=== PATIENT | female | born 1945 | race Caucasian/White ===

== ENCOUNTER 2018-01-19 10:00 | Outpatient (RCR) | payer MEDICARE, SELFPAY ==
--- NOTE | 2018-01-12 09:30 | IE_ITS ---
Date: January 12, 2018 Referring: Karen Bernardo DO M.D. Diagnosis: UE weakness P.T. Diagnosis: same SUBJECTIVE: History of Present Illness: Jennifer complains of general weakness throughout the UE's when performing more strenuous type activities. NO pain associated with these. A 73 year old female seen by myself earlier this year with LE weakness and balance deficits. She had a few sessions and has been placed on an independent program where she comes into the clinic a couple times a week working on LE, core strengthening and balancing activities. She notices a significant difference in her gait stability, balance including climbing stairs, etc. . . . She also notes some progressive weakness over the years with her UE's. Pain Ratin/10 Prior Level of Function: Independent Current Level of Function: Has some difficulty with more strenuous activities requiring her UE use such pulling pans of lasagna out of the oven, lifting heavier items out of the frig, etc. . . Social: , retired. Comorbidities: See patient's EMR for list. Falls in the last year: __X__ No ____Yes - How many? ____ - (if over 2, balance SM needs to be completed) Reported hospitalizations in the last year - __X__ No ____ Yes - Dates of admission/reason: Medications: See her Med list in EMR Quality of Life: ____ Excellent __x__ Good ____ Fair ____ Poor Standardized Measures: DASH score: __Did not complete OBJECTIVE: Posture: Shoulders and pelvis are level. (-) lateral shift. Observation: (behavior, atrophy, skin color, etc.) Is hard of hearing, but cooperative and pleasant, no complaints of pain. Palpation: Non-tender throughout the cervical musculature, the AC/SC joints, subacromially or over greater tuberosity. Edema: (-) effusion, erythema or warmth. ROM: She has mild limitation within an articular pattern, with cervical spine movements, but without pain on movement. Bilateral shoulder motion reveals good initiation of flexion/abduction without scapular substitution. Her thumbs are equal with reaching behind her back and around the T9 level. Her AAROM in supine position shows full ROM with ER at 90 degrees. She is a little tight with her IR on the L at 60 degrees, but she has (-) Hawkin's Reynold impingement maneuver. Her elbow movements are hypomobile at -10 degrees of extension, but full flexion , without pain on movement. Forearm supination/pronation is full. Her wrist flexion/extension is WFL at greater than 60 degrees. She has some hypomobility at the CMC joints of the thumb, but without pain and she has Heberden's notes along the distal phalanges, particularly the index fingers. Strength: She tolerates good resistance to the rotator cuff, and she has full motor control throughout the upper extremities. Strength is generally rated -5/ 5. Neuro: UE reflexes are symmetrical. Sensation is intact to light touch. Treatment: Today consisted of the evaluation. IE: [id number] Direct treatment time: 50 mins Total treatment time: 50 mins ASSESSMENT: Patient is a 73-year-old female , referred for PT services with the diagnosis of UE weakness. Patient presents with clinical signs and symptoms consistent with this diagnosis, as demonstrated by the following impairment level findings : difficulty lifting or carrying heavy objects. Impairments are contributing to the following functional limitations: of difficulty lifting heavy pans out of the oven, or putting heavier items in cupboards above shoulder level. Patient is assessed as: __X__ Low 28135 ____ Moderate 12878 ____ High 48770 complexity, based on the following: History: (list): X See comorbidities and social history. Examination: (list): X See above for functional limitations and impairments. Presentation: X Stable . Evolving Unstable Decision-Making: X Low complexity Moderate complexity High complexity % Disability based on clinical observation G-Codes (fill in modifier after appropriate code): Patient's primary functional limitation is in the category of: __x__ Carrying, moving and handling objects: [id number] Projected goal: __x__ Carrying, moving, and handling objects [id number] STG: __6__ weeks. 1: Develop an independent program with added UE strengthening to handle all functional activities including lifting heavier items, such as her cooking pans , etc. . . LTG: __12__ weeks. 1: Return to full, pain-free, functional mobility. 2: Independent with self-maintenance program. PLAN: Session today consisted of the evaluation, along with patient education followed by setting her up an appt with Lou Darling PTA next week to educate her in a minimally supervised program for UE strengthening exercises here at the clinic, this will be incorporated into a total body program. Thank you for this referral. Please do not hesitate to contact me with any questions or concerns regarding this patient's plan of care. *Karen, please sign this evaluation if you are in agreement with the above stated goals and plan of care. cc: Karen Bernardo DO
--- NOTE | 2018-01-16 13:38 | PTTR_ITS ---
DATE: 01/16/18 OBJECTIVE: Therapeutic procedures ([id number]). Todays session consisted of pt completing an UE strengthening program as per her request. She had been currently completing an MSP program but wanted to add some upper body strengthening so I included UE strengthening, scap stabilization per flow sheet and added the UBE for UE cardiovascular exercise. Pt completed approximately 15 minutes of that with me and then completed her (I) program with the wellness. Direct treatment time: 20 minutes Total treatment time: 20 minutes
--- NOTE | 2018-01-19 10:23 | PTTR_ITS ---
DATE: 01/19/18 SUBJECTIVE: Pt reports that her neck is sore today. She states that she was somewhat sore after last session. OBJECTIVE: Therapeutic procedures ([id number]). * X Other: Pt had a review of her UE strengthening so she could feel comfortable completing it on her own. I did add 2 exercises to her UE strengthening program. Pt will now incorporate her UE strengthening into her current MSP program. Direct treatment time: 20 Total treatment time: 20
== END 2018-01-20 23:59 | disposition home or self-care (01) ==
LOC: PT 10:00
PROVIDERS: PCP Student in an Organized Health Care Education/Training Program; Referring Provider Student in an Organized Health Care Education/Training Program; Visit Provider Student in an Organized Health Care Education/Training Program
DX: M62.81 Muscle weakness (generalized) (principal)
CPT/HCPCS: 97110; 97161

== ENCOUNTER 2018-01-25 07:11 | Outpatient (CLI) | payer MEDICARE, SELFPAY ==
[2018-01-25 07:42] LABS: HCT 43.6 % (36.0-46.0); HGB 14.4 g/dL (12.0-15.5); Mean Corpuscular Volume 93.8 fL (80-95); Mean Platelet Volume 10.7 fL (8.0-11.0); Platelet Count 182 x1000/uL (130-400); RBC 4.65 m/cumm (4.00-5.20); RBC Distribution Width 14.1 % (11.7-14.6); White Blood Cell Count 6.66 k/cumm (4.4-10.8)
[2018-01-25 08:38] LABS: ALT 24 U/L (12-78); AST 22 U/L (15-37); Albumin 3.8 g/dL (3.4-5.0); Alkaline Phosphatase 55 U/L (46-116); BUN 11 mg/dL (7-18); Bilirubin, Total 0.5 mg/dL (0.2-1.0); Calcium 8.8 mg/dL (8.5-10.1); Chloride 106 mmol/L (98-107); Cholesterol 129 mg/dL (50-200); Glucose 86 mg/dL (70-100); HDL Cholesterol 61 mg/dL (40-60); LDL CHOLESTEROL 61 mg/dL (<100); Potassium 3.9 mmol/L (3.5-5.1); Sodium 141 mmol/L (136-145); TSH (W/Ref FT4) 2.23 uIU/mL (0.358-3.74); Total Protein 7.4 g/dL (6.4-8.2); Triglyceride 62 mg/dL (30-150)
[2018-01-26 04:33] LABS: Vitamin D 25 Total 48.8 ng/ml (30-100)
== END 2018-01-25 07:31 ==
PROVIDERS: PCP Student in an Organized Health Care Education/Training Program; Visit Provider Student in an Organized Health Care Education/Training Program
DX: E78.00 Pure hypercholesterolemia, unspecified (principal); K21.9 Gastro-esophageal reflux disease without esophagitis; K22.70 Barrett's esophagus without dysplasia; R01.1 Cardiac murmur, unspecified; I10 Essential (primary) hypertension; E55.9 Vitamin D deficiency, unspecified; Z86.39 Personal history of other endocrine, nutritional and metabolic disease; E83.42 Hypomagnesemia; M85.80 Other specified disorders of bone density and structure, unspecified site; E03.9 Hypothyroidism, unspecified
CPT/HCPCS: 80053; 80061; 82306; 83721; 85027; 84443

== ENCOUNTER 2018-09-13 11:42 | Outpatient (REF) | payer MEDICARE, SELFPAY | END 2018-09-13 12:02 | LOC: LBN 11:42 | PROVIDERS: PCP Student in an Organized Health Care Education/Training Program; Visit Provider Student in an Organized Health Care Education/Training Program | DX: R35.0 Frequency of micturition (principal) | CPT/HCPCS: 87086 ==

== ENCOUNTER 2018-09-15 07:13 | Outpatient (CLI) | payer MEDICARE, SELFPAY ==
[2018-09-15 08:53] LABS: Anion Gap 11.7 mmol/L (3-11); BUN 14 mg/dL (7-18); CO2 23.3 mmol/L (21.0-32.0); CREATININE 0.83 mg/dL (0.55-1.02); Calcium 9.1 mg/dL (8.5-10.1); Chloride 105 mmol/L (98-107); Cholesterol 220 mg/dL (50-200); Glucose 94 mg/dL (70-100); HDL Cholesterol 65 mg/dL (40-60); LDL CHOLESTEROL 141 mg/dL (<100); Potassium 4.2 mmol/L (3.5-5.1); Sodium 140 mmol/L (136-145); Triglyceride 80 mg/dL (30-150)
== END 2018-09-15 07:33 ==
PROVIDERS: PCP Student in an Organized Health Care Education/Training Program; Visit Provider Student in an Organized Health Care Education/Training Program
DX: R79.89 Other specified abnormal findings of blood chemistry (principal); E78.00 Pure hypercholesterolemia, unspecified; Z79.899 Other long term (current) drug therapy
CPT/HCPCS: 36415; 80048; 80061; 83721

== ENCOUNTER 2018-09-20 09:10 | Outpatient (CLI) | payer MEDICARE, SELFPAY ==
--- NOTE | 2018-09-20 11:00 | DI.RAD_ITS ---
SYMPTOMS/DIAGNOSIS: OSTEOPOROSIS, ACUTE RT SIDED BACK PAIN LUMBAR SPINE: AP, lateral and bilateral oblique views of the lumbar spine were obtained. There are five lumbar type vertebral bodies. There is grade 1 pseudospondylolisthesis of L 4 on L 5. There is disc space narrowing at L 1 - 2 and L 5 - S 1. Vacuum disc is seen at L 5 - S 1. There are endplate osteophytes at multiple levels of the lumbar spine. The findings are most marked at L 1 - 2, L 4 - 5 and L 5 - S 1. There are degenerative changes of the facets seen in the lumbar spine particularly at L 3 - 4 through L 5 - S 1. No acute fractures or subluxations are appreciated. There is a mild left convex curvature of the lumbar spine centered at L 3. IMPRESSION: 1. No acute fracture or subluxation of the lumbar spine. 2. Mild to moderate degenerative changes of the lumbar spine.
== END 2018-09-20 09:30 ==
PROVIDERS: PCP Student in an Organized Health Care Education/Training Program; Visit Provider Family Medicine
DX: M54.5 Low back pain (principal); M51.37 Other intervertebral disc degeneration, lumbosacral region; M47.817 Spondylosis without myelopathy or radiculopathy, lumbosacral region
CPT/HCPCS: 72110

== ENCOUNTER 2018-09-30 09:12 | Emergency (ER) | payer MEDICARE, SELFPAY ==
[2018-09-30 09:16] VITALS: BP 146/56; PULSE 60; RESP 13; TEMP 37.1; O2SAT 98
[2018-09-30 09:20] VITALS: RESP 20
--- NOTE | 2018-09-30 09:35 | W.ED.GENAD ---
Discharge Plan Disposition Patient Disposition: HOME Condition: Improving Discharge Details Chief Complaint: Dizzy/Sync Clinical Impression: Near syncope Primary Care Provider: Karen Bernardo ED Provider: Lefty Pires Home Meds and New Rx's Prescriptions: No Action omeprazole 40 mg capsule,delayed release(DR/EC) 40 mg PO DAILY Qty: 90 RF: 2 ibuprofen [Advil] 200 mg tablet 400 mg PO QID PRNRF: 0 Probiotic 1 EACH capsule 1 ea PO PRN RF: 0 Varicella-Zoster Ge/As01b/Pf [Shingrix Vial Kit] 50 MCG INJ 50 mcg IM ONCE Qty: 1 RF: 1 amlodipine 5 MG tablet 5 mg PO DAILY Qty: 90 RF: 3 levothyroxine 50 MCG tablet 50 mcg PO DAILY Qty: 90 RF: 3 cholecalciferol (vitamin D3) 1,000 UNIT capsule 1,000 unit PO DAILY RF: 0 Discharge Instructions Instructions: Near Syncope (ED) Additional Instructions: Please follow-up with your private doctor on Tuesday of this week please return immediately to the emergency department for loss of consciousness shortness of breath chest pain or other concern please follow-up with orthopedic surgery for further evaluation of your hip pain Referrals: Karen Bernardo DO [Primary Care Provider] - Kennedy Peterson MD [ [facility] STAFF PHYSICIAN] - Medical Decision Making 73-year-old female past medical history of hypothyroidism and hypertension presents with 3 near syncopal episodes a.m. today patient asymptomatic in the emergency department will obtain labs EKG chest x-ray and observe on telemetry in the emergency depart. Patient with more chronic neck pain without radiculopathy no sensory deficits does not seem to have any acute emergent neck process no evidence of arterial venous insufficiency. Right hip pain full range of motion with discomfort and swelling no change in sensation no right limb weakness or affect atrophy will repeat plain films provide analgesia likely follow-up with orthopedics and physical therapy.. Patient resting comfortably no further near syncopal episodes EKG chest x-ray and labs reviewed unremarkable patient normal neurologic exam ambulating in the emergency department tolerating p.o. discussed with patient observation admission on telemetry versus discharge in early follow-up patient opted for the latter choice which I think is very reasonable based on her benign appearance normal lab work. Patient agrees to return immediately for repeat episodes of near syncope chest pain shortness of breath or any other concern we will follow-up with her primary care earlier this week. ECG Data Attestation: I personally reviewed and interpreted this ECG (s) as follows: Prior ECG tracings: available for review (Sinus rhythm rate 63 with occasional PVCs normal axis normal intervals no STEMI) HPI 73-year-old female past medical history of hypertension and hypothyroidism presents with 3 near syncopal episodes and today no fall no trauma patient said she is felt lightheaded her vision darkened had to sit down episodes lasted to be 30 to 60 seconds and then cleared. Patient also complaining of chronic neck pain last 3 to 4 months and more recently right hip pain had negative x-rays about 2 weeks ago is been taking ibuprofen with some relief for both pain. No shortness of breath no chest pain no nausea vomiting diarrhea loss of consciousness focal neurologic deficit weight loss or weight gain. Patient drinks one alcohol drink a night no tobacco use no illicit drugs. General Date/Time Provider Initiated Documentation: 09/30/18 09:34. Related Data Home Medications Medication Instructions Recorded Confirmed cholecalciferol (vitamin D3) 1,000 unit PO DAILY 02/13/13 09/30/18 Probiotic 1 ea PO PRN 12/15/15 09/30/18 amlodipine 5 mg PO DAILY #90 tab-cap 01/20/18 09/30/18 levothyroxine 50 mcg PO DAILY #90 tab-cap 01/20/18 09/30/18 omeprazole 40 mg capsule,delayed 40 mg PO DAILY #90 cap 02/23/18 09/30/18 release ibuprofen 200 mg tablet 400 mg PO QID PRN tab 09/19/18 09/30/18 Previous Rx's Medication Instructions Recorded amlodipine 5 mg PO DAILY #90 tab-cap 01/20/18 levothyroxine 50 mcg PO DAILY #90 tab-cap 01/20/18 omeprazole 40 mg capsule,delayed 40 mg PO DAILY #90 cap 02/23/18 release Allergies Allergy/AdvReac Type Severity Reaction Status Date / Time Penicillins Allergy Intermediate Skin Rash, Verified 09/30/18 09:20 V&D horse fly bites AdvReac Mild arms Uncoded 09/30/18 09:20 swelled seasonal AdvReac Mild Uncoded 09/30/18 09:20 General Stated Complaint: Dizzy/Sync NEETA: 3 Review of Systems Review of Systems All systems reviewed & are unremarkable except as noted in HPI and below PFSH Medical History GERD (gastroesophageal reflux disease) HTN (hypertension) Hypothyroidism Uses cochlear implant Surgical History Cochlear Implant (R)Side Colonoscopy - MAC (09/12/17) Hiatal Hernia Family History Mother No problems noted. Father COPD (chronic obstructive pulmonary disease) Sister Essential hypertension Stroke Maternal Grandmother Essential hypertension Stroke Son Alcohol abuse Social History Smoking/Tobacco Use Status: Former Tobacco Use Alcohol Intake: current Alcohol Intake frequency: a few times a week Drug use: Never Substance use type: does not use Adopted: No Caregiver/Support person: No Household members: spouse Housing: house Number of Children: 2 number of grandchildren: 1 Pets and animals: Yes Pets and animals: cat(s) Do you think of yourself as: straight/heterosexual Current gender identity: female What type of physical activity do you participate in: none Seatbelt use: always Helmet use: Yes Water heater temp set <120 deg: Yes Working smoke detector in home: Yes Fire extinguisher in home: Yes Carbon monox detector in home: Yes Firearms in home: Yes Firearms unloaded and locked: Yes In current or past relationships, have you been: made to feel afraid Do you feel safe at home: Yes Do you feel safe in your relationship?: Yes Exam Narrative Exam Narrative: Pulse oximetry reviewed by me and is normal [] Constitutional: Pt is in no acute distress. he is well appearing. he oriented to person, place, and time. Eyes: conjunctivae are normal. Pupils are equal, round, and reactive to light. No scleral icterus. extraocular muscles are intact Ears/Nose/Mouth/Throat: mucus membranes are moist. Musculoskeletal: neck is supple. normal range of motion in all extremities. Cardiovascular: Normal rate and rhythm. No lower extremity edema [regular rate and] Respiratory: effort is normal . pt exhibits no stridor or respiratory distress. [Lungs clear to auscultation by] GastrointestinaI: abdomen soft, +BS, nontender, -rebound, -guarding. Neurological: alert and oriented to person, place, and time. he has normal strength, no tremor. Skin: Skin is warm and dry. he is not diaphoretic. Distal perfusion in tact, warm extremities, cap refill ? 2 seconds. Hem/Lymph/Imm: No cervical LAD, no goiter, no conjunctival pallor Psych: normal mood and affect. behavior is normal Triage and nurse notes reviewed.[] Neuro General: alert, awake, oriented x3, gait normal, moves all extremities, normal light touch, pain and propioception, no meningeal signs, no focal motor deficits and CN's II-XI intact bilaterally Gait: antalgic (Patient mild limp on the right side due to hip pain improves with amp) Motor: muscle tone normal throughout, strength 5/5 throughout, no pronator drift, no movement abnormalities noted and no fasciculations Sensory Exam: no sensory deficits noted Coordination: [id number] test normal, [id number] test normal, Romberg test normal, Does not sway with eyes open and rapid alternating movement UE normal Course Vital Signs Temperature 37.1 C 09/30/18 09:16 Pulse 60 09/30/18 09:16 Respiratory Rate 13 09/30/18 09:16 Blood Pressure 146/56 H 09/30/18 09:16 Pulse Oximetry 98 09/30/18 09:16 Temperature 37.1 C 09/30/18 09:16 Temperature Source Temporal Artery Scan 09/30/18 09:16 Pulse 60 09/30/18 09:16 Respiratory Rate 20 09/30/18 09:20 Respiratory Effort Non-Labored 09/30/18 09:20 Respiratory Depth Normal 09/30/18 09:20 Respiratory Pattern Normal 09/30/18 09:20 Blood Pressure 146/56 H 09/30/18 09:16 Pulse Oximetry 98 09/30/18 09:16 Oxygen Delivery Method Room Air 09/30/18 09:16 Oxygen Flow Rate 0 09/30/18 09:16 Pain Level 10 09/30/18 09:16
--- NOTE | 2018-09-30 09:40 | DI.RAD_ITS ---
SYMPTOMS/DIAGNOSIS: NEAR SYNCOPE PA AND LATERAL CHEST: Comparison is made with [id number]. The heart size is within normal limits. The aorta is tortuous. The lungs show mild fibrotic changes but are otherwise clear. No infiltrate, effusion or pulmonary edema is seen. There are degenerative changes in the spine. No compression fractures are seen. No pneumothorax is identified. IMPRESSION: No acute abnormality.
--- NOTE | 2018-09-30 09:40 | ED.GENADUL_ITS ---
Discharge Plan Disposition Patient Disposition: HOME Condition: Improving Discharge Details Chief Complaint: Dizzy/Sync Clinical Impression: Near syncope Primary Care Provider: Karen Bernardo ED Provider: Lefty Pires Home Meds and New Rx's Prescriptions: No Action omeprazole 40 mg capsule,delayed release(DR/EC) 40 mg PO DAILY Qty: 90 RF: 2 ibuprofen [Advil] 200 mg tablet 400 mg PO QID PRNRF: 0 Probiotic 1 EACH capsule 1 ea PO PRN RF: 0 Varicella-Zoster Ge/As01b/Pf [Shingrix Vial Kit] 50 MCG INJ 50 mcg IM ONCE Qty: 1 RF: 1 amlodipine 5 MG tablet 5 mg PO DAILY Qty: 90 RF: 3 levothyroxine 50 MCG tablet 50 mcg PO DAILY Qty: 90 RF: 3 cholecalciferol (vitamin D3) 1,000 UNIT capsule 1,000 unit PO DAILY RF: 0 Discharge Instructions Instructions: Near Syncope (ED) Additional Instructions: Please follow-up with your private doctor on Tuesday of this week please return immediately to the emergency department for loss of consciousness shortness of breath chest pain or other concern please follow-up with orthopedic surgery for further evaluation of your hip pain Referrals: Karen Bernardo DO [Primary Care Provider] - Kennedy Peterson MD [ [facility] STAFF PHYSICIAN] - Medical Decision Making 73-year-old female past medical history of hypothyroidism and hypertension presents with 3 near syncopal episodes a.m. today patient asymptomatic in the emergency department will obtain labs EKG chest x-ray and observe on telemetry in the emergency depart. Patient with more chronic neck pain without radiculopathy no sensory deficits does not seem to have any acute emergent neck process no evidence of arterial venous insufficiency. Right hip pain full range of motion with discomfort and swelling no change in sensation no right limb weakness or affect atrophy will repeat plain films provide analgesia likely follow-up with orthopedics and physical therapy.. Patient resting comfortably no further near syncopal episodes EKG chest x-ray and labs reviewed unremarkable patient normal neurologic exam ambulating in the emergency department tolerating p.o. discussed with patient observation admission on telemetry versus discharge in early follow-up patient opted for the latter choice which I think is very reasonable based on her benign appearance normal lab work. Patient agrees to return immediately for repeat episodes of near syncope chest pain shortness of breath or any other concern we will follow- up with her primary care earlier this week. ECG Data Attestation: I personally reviewed and interpreted this ECG (s) as follows: Prior ECG tracings: available for review (Sinus rhythm rate 63 with occasional PVCs normal axis normal intervals no STEMI) HPI 73-year-old female past medical history of hypertension and hypothyroidism pre sents with 3 near syncopal episodes and today no fall no trauma patient said she is felt lightheaded her vision darkened had to sit down episodes lasted to be 30 to 60 seconds and then cleared. Patient also complaining of chronic neck pain last 3 to 4 months and more recently right hip pain had negative x-rays about 2 weeks ago is been taking ibuprofen with some relief for both pain. No shortness of breath no chest pain no nausea vomiting diarrhea loss of consciousness focal neurologic deficit weight loss or weight gain. Patient drinks one alcohol drink a night no tobacco use no illicit drugs. General Date/Time Provider Initiated Documentation: 09/30/18 09:34 . Related Data Home Medications Medication Instructions Recorded Confirmed cholecalciferol (vitamin D3) 1,000 unit PO DAILY 02/13/13 09/30/18 Probiotic 1 ea PO PRN 12/15/15 09/30/18 amlodipine 5 mg PO DAILY #90 tab-cap 01/20/18 09/30/18 levothyroxine 50 mcg PO DAILY #90 tab-cap 01/20/18 09/30/18 omeprazole 40 mg capsule,delayed 40 mg PO DAILY #90 cap 02/23/18 09/30/18 release ibuprofen 200 mg tablet 400 mg PO QID PRN tab 09/19/18 09/30/18 Previous Rx's Medication Instructions Recorded amlodipine 5 mg PO DAILY #90 tab-cap 01/20/18 levothyroxine 50 mcg PO DAILY #90 tab-cap 01/20/18 omeprazole 40 mg capsule,delayed 40 mg PO DAILY #90 cap 02/23/18 release Allergies Allergy/AdvReac Type Severity Reaction Status Date / Time Penicillins Allergy Intermediate Skin Rash, Verified 09/30/18 09:20 V&D horse fly bites AdvReac Mild arms Uncoded 09/30/18 09:20 swelled seasonal AdvReac Mild Uncoded 09/30/18 09:20 General Stated Complaint: Dizzy/Sync ENETA: 3 Review of Systems Review of Systems All systems reviewed & are unremarkable except as noted in HPI and below PFSH Medical History GERD (gastroesophageal reflux disease) HTN (hypertension) Hypothyroidism Uses cochlear implant Surgical History Cochlear Implant (R)Side Colonoscopy - MAC (09/12/17) Hiatal Hernia Family History Mother No problems noted. Father COPD (chronic obstructive pulmonary disease) Sister Essential hypertension Stroke Maternal Grandmother Essential hypertension Stroke Son Alcohol abuse Social History Smoking/Tobacco Use Status: Former Tobacco Use Alcohol Intake: current Alcohol Intake frequency: a few times a week Drug use: Never Substance use type: does not use Adopted: No Caregiver/Support person: No Household members: spouse Housing: house Number of Children: 2 number of grandchildren: 1 Pets and animals: Yes Pets and animals: cat(s) Do you think of yourself as: straight/heterosexual Current gender identity: female What type of physical activity do you participate in: none Seatbelt use: always Helmet use: Yes Water heater temp set <120 deg: Yes Working smoke detector in home: Yes Fire extinguisher in home: Yes Carbon monox detector in home: Yes Firearms in home: Yes Firearms unloaded and locked: Yes In current or past relationships, have you been: made to feel afraid Do you feel safe at home: Yes Do you feel safe in your relationship?: Yes Exam Narrative Exam Narrative: Pulse oximetry reviewed by me and is normal [] Constitutional: Pt is in no acute distress. he is well appearing. he oriented to person, place, and time. Eyes: conjunctivae are normal. Pupils are equal, round, and reactive to light. No scleral icterus. extraocular muscles are intact Ears/Nose/Mouth/Throat: mucus membranes are moist. Musculoskeletal: neck is supple. normal range of motion in all extremities. Cardiovascular: Normal rate and rhythm. No lower extremity edema [regular rate and] Respiratory: effort is normal . pt exhibits no stridor or respiratory distress. [Lungs clear to auscultation by] GastrointestinaI: abdomen soft, +BS, nontender, -rebound, -guarding. Neurological: alert and oriented to person, place, and time. he has normal strength, no tremor. Skin: Skin is warm and dry. he is not diaphoretic. Distal perfusion in tact, warm extremities, cap refill ? 2 seconds. Hem/Lymph/Imm: No cervical LAD, no goiter, no conjunctival pallor Psych: normal mood and affect. behavior is normal Triage and nurse notes reviewed.[] Neuro General: alert, awake, oriented x3, gait normal, moves all extremities, normal light touch, pain and propioception, no meningeal signs, no focal motor deficits and CN's II-XI intact bilaterally Gait: antalgic (Patient mild limp on the right side due to hip pain improves with amp) Motor: muscle tone normal throughout, strength 5/5 throughout, no pronator drift, no movement abnormalities noted and no fasciculations Sensory Exam: no sensory deficits noted Coordination: [id number] test normal, [id number] test normal, Romberg test normal, Does not sway with eyes open and rapid alternating movement UE normal Course Vital Signs Temperature 37.1 C 09/30/18 09:16 Pulse 60 09/30/18 09:16 Respiratory Rate 13 09/30/18 09:16 Blood Pressure 146/56 H 09/30/18 09:16 Pulse Oximetry 98 09/30/18 09:16 Temperature 37.1 C 09/30/18 09:16 Temperature Source Temporal Artery Scan 09/30/18 09:16 Pulse 60 09/30/18 09:16 Respiratory Rate 20 09/30/18 09:20 Respiratory Effort Non-Labored 09/30/18 09:20 Respiratory Depth Normal 09/30/18 09:20 Respiratory Pattern Normal 09/30/18 09:20 Blood Pressure 146/56 H 09/30/18 09:16 Pulse Oximetry 98 09/30/18 09:16 Oxygen Delivery Method Room Air 09/30/18 09:16 Oxygen Flow Rate 0 09/30/18 09:16 Pain Level 10 09/30/18 09:16
[2018-09-30 09:52] LABS: Abs Immature Grans 0.02 k/cumm (0.0-0.09); Absolute Basophil Count 0.05 k/cumm (0.0-0.2); Absolute Eosinophil Count 0.27 k/cumm (0.0-0.7); Absolute Lymphocyte Count 3.44 k/cumm (1.2-3.4); Absolute Monocyte Count 0.63 k/cumm (0.11-0.7); Basophils % 0.6; Eosinophils % 3.4; HGB 14.8 g/dL (12.0-15.5); Immature Grans % 0.3; Lymphocytes % 43.5; Mean Corp. HGB Concentration 33.6 g/dL (32.0-36.0); Mean Corpuscular Hemoglobin 31.7 pg (27.0-33.0); Mean Corpuscular Volume 94.2 fL (80-95); Mean Platelet Volume 10.2 fL (8.0-11.0); Neutrophils % 44.2; Platelet Count 214 x1000/uL (130-400); RBC 4.67 m/cumm (4.00-5.20); RBC Distribution Width 13.6 % (11.7-14.6); White Blood Cell Count 7.91 k/cumm (4.4-10.8)
[2018-09-30 09:59] LABS: Bilirubin Negative (Negative); Blood Trace-lysed (Negative); Clarity Clear; Glucose Negative (Negative); Ketones Negative (Negative); Leukocyte Esterase Negative (Negative); Nitrite Negative (Negative); Urobilinogen 0.2 EU/dL (Up TO 0.2); pH 5.5 (5-8)
[2018-09-30 10:10] LABS: ALT 25 U/L (12-78); AST 21 U/L (15-37); Albumin 3.9 g/dL (3.4-5.0); Alkaline Phosphatase 59 U/L (46-116); Anion Gap 10.1 mmol/L (3-11); BUN 15 mg/dL (7-18); Bilirubin, Total 0.4 mg/dL (0.2-1.0); CO2 25.9 mmol/L (21.0-32.0); CREATININE 0.71 mg/dL (0.55-1.02); Calcium 9.5 mg/dL (8.5-10.1); Chloride 103 mmol/L (98-107); Glucose 102 mg/dL (70-100); Magnesium 1.8 mg/dL (1.8-2.4); Potassium 3.9 mmol/L (3.5-5.1); Sodium 139 mmol/L (136-145); TSH 2.74 uIU/mL (0.358-3.74); Total Protein 8.2 g/dL (6.4-8.2)
[2018-09-30] MEDS: Lactated Ringers 1,000 ML 1000 ML IV (10:11)
[2018-09-30 10:13] LABS: Troponin I < 0.02 ng/mL (0.00-0.06)
[2018-09-30 10:26] LABS: Bacteria Rare HPF (Negative); C & S Indicated? No; Casts Negative LPF (Negative); Crystals Negative HPF (Negative); Epithelial Cells Moderate HPF (Negative); Mucus Trace (Negative); RBC 0-2 (0-2); WBC Negative HPF (0-5)
[2018-09-30] MEDS: Ibuprofen 600 MG TAB PO (10:51)
[2018-09-30] MEDS: Acetaminophen 325 MG TAB 650 MG PO (10:51)
[2018-09-30] MEDS: Cyclobenzaprine 10 MG TAB PO (10:51)
--- NOTE | 2018-09-30 10:52 | DI.VRAD_ITS ---
EXAM: XR Chest, 2 Views EXAM DATE/TIME: 09/30/2018 9:41 AM CLINICAL HISTORY: 73 years old, female; Signs and symptoms; Other: Near syncope TECHNIQUE: Imaging protocol: XR of the chest, 2 views. COMPARISON: CR CHEST 2 VIEWS PA,LAT 10/18/2017 5:41 PM FINDINGS: Lungs: Unremarkable. No consolidation. Pleural space: Unremarkable. No pleural effusion. No pneumothorax. Heart/Mediastinum: Stable cardiac silhouette Bones/joints: Osseous structures are stable IMPRESSION: No acute process Dictated and Authenticated by: Kaveh Lopes MD. Ordering:SHAHEED Olea MD
[2018-09-30 11:15] VITALS: BP 141/73; PULSE 56; RESP 18; O2SAT 96
== END 2018-09-30 11:17 | disposition home or self-care (01) ==
PROVIDERS: Emergency Provider Emergency Medicine; PCP Student in an Organized Health Care Education/Training Program
DX: R55 Syncope and collapse (principal); M54.2 Cervicalgia; G89.29 Other chronic pain; M25.551 Pain in right hip; I10 Essential (primary) hypertension
CPT/HCPCS: 36415; 80053; 93005; 99285; 71046; 81003; 81015; 83735; 84443; 84484; 85025; 93010; 99284

== ENCOUNTER 2019-10-26 19:17 | Outpatient (REF) | payer MEDICARE, SELFPAY | END 2019-10-26 19:37 | LOC: LBN 19:17 | PROVIDERS: PCP Student in an Organized Health Care Education/Training Program; Visit Provider Nurse Practitioner Adult Health | DX: R31.9 Hematuria, unspecified (principal); N39.0 Urinary tract infection, site not specified | CPT/HCPCS: 87077; 87086; 87186 ==

== ENCOUNTER 2019-11-09 15:40 | Outpatient (REF) | payer MEDICARE, SELFPAY ==
[2019-11-09 18:24] LABS: Bilirubin Negative (Negative); Blood Trace-lysed (Negative); Clarity Sl Cloudy (Clear); Glucose Negative (Negative); Ketones Negative (Negative); Leukocyte Esterase Moderate (Negative); Nitrite Negative (Negative); Specific Gravity 1.015 (1.005-1.025); Urobilinogen 0.2 EU/dL (Up TO 0.2)
[2019-11-09 18:50] LABS: Epithelial Cells Moderate HPF (Negative); RBC 0-2 HPF (0-2); WBC 20-50 HPF (0-5)
[2019-11-09 18:51] LABS: Bacteria Moderate HPF (Negative); C & S Indicated? No/Sq. Contamination; Casts Negative LPF (Negative); Crystals Negative HPF (Negative); Mucus Trace (Negative); Other Cells Few Renal (Negative)
== END 2019-11-09 16:00 ==
LOC: LBN 15:40
PROVIDERS: PCP Student in an Organized Health Care Education/Training Program; Visit Provider Student in an Organized Health Care Education/Training Program
DX: R82.998 Other abnormal findings in urine (principal); R39.9 Unspecified symptoms and signs involving the genitourinary system
CPT/HCPCS: 81003; 81015

== ENCOUNTER 2019-11-10 16:16 | Outpatient (REF) | payer MEDICARE, SELFPAY ==
[2019-11-10 16:29] LABS: Bilirubin Negative (Negative); Blood Trace-intact (Negative); Clarity Sl Cloudy (Clear); Glucose Negative (Negative); Ketones Negative (Negative); Leukocyte Esterase Trace (Negative); Nitrite Negative (Negative); Urobilinogen 0.2 EU/dL (Up TO 0.2)
[2019-11-10 16:31] LABS: Bacteria Many HPF (Negative); C & S Indicated? Yes; Casts Negative LPF (Negative); Crystals Negative HPF (Negative); Epithelial Cells Negative HPF (Negative); Mucus Negative (Negative); Other Cells Negative (Negative); RBC 0-2 HPF (0-2)
== END 2019-11-10 16:36 ==
LOC: LBN 16:16
PROVIDERS: PCP Student in an Organized Health Care Education/Training Program; Visit Provider Student in an Organized Health Care Education/Training Program
DX: R82.998 Other abnormal findings in urine (principal); R39.9 Unspecified symptoms and signs involving the genitourinary system
CPT/HCPCS: 87077; 81003; 81015; 87086; 87186

== ENCOUNTER 2019-11-12 15:06 | Outpatient (REF) | payer MEDICARE, SELFPAY | END 2019-11-12 15:26 | LOC: LBN 15:06 | PROVIDERS: PCP Student in an Organized Health Care Education/Training Program; Visit Provider Student in an Organized Health Care Education/Training Program | DX: R82.998 Other abnormal findings in urine (principal); R39.9 Unspecified symptoms and signs involving the genitourinary system | CPT/HCPCS: 87077; 87086; 87186 ==

== ENCOUNTER 2019-11-15 02:54 | Outpatient (CLI) | payer MEDICARE, SELFPAY ==
[2019-11-15 12:13] LABS: Abs Immature Grans 0.03 k/cumm (0.0-0.09); Absolute Basophil Count 0.04 k/cumm (0.0-0.2); Absolute Eosinophil Count 0.32 k/cumm (0.0-0.7); Absolute Lymphocyte Count 4.41 k/cumm (1.2-3.4); Absolute Monocyte Count 0.77 k/cumm (0.11-0.7); Absolute Neutrophil Count 4.64 k/cumm (1.2-6.7); Basophils % 0.4; Eosinophils % 3.1; HCT 44.1 % (36.0-46.0); HGB 14.7 g/dL (12.0-15.5); Immature Grans % 0.3 %; Lymphocytes % 43.2; Mean Corp. HGB Concentration 33.3 g/dL (32.0-36.0); Mean Corpuscular Hemoglobin 30.8 pg (27.0-33.0); Mean Corpuscular Volume 92.5 fL (80-95); Monocytes % 7.5; Neutrophils % 45.5; Platelet Count 282 x1000/uL (130-400); RBC 4.77 m/cumm (4.00-5.20); RBC Distribution Width 14.4 % (11.7-14.6); White Blood Cell Count 10.21 k/cumm (4.4-10.8)
[2019-11-15 13:39] LABS: ALT 25 U/L (14-59); AST 22 U/L (15-37); Alkaline Phosphatase 64 U/L (46-116); Anion Gap 11.2 mmol/L (3-11); BUN 11 mg/dL (7-18); Bilirubin, Total 0.3 mg/dL (0.2-1.0); CO2 21.8 mmol/L (21.0-32.0); Calcium 9.3 mg/dL (8.5-10.1); Calculated LDL 129 mg/dL (<100); Chloride 103 mmol/L (98-107); Cholesterol 216 mg/dL (<200); Glucose 93 mg/dL (74-106); HDL Cholesterol 62 mg/dL (40-60); Potassium 4.1 mmol/L (3.5-5.1); Sodium 136 mmol/L (136-145); Total Protein 7.6 g/dL (6.4-8.2); Triglyceride 127 mg/dL (<150)
[2019-11-15 13:46] LABS: TSH (W/Ref FT4) 2.21 uIU/mL (0.36-3.74)
== END 2019-11-15 03:14 ==
PROVIDERS: PCP Student in an Organized Health Care Education/Training Program; Visit Provider Student in an Organized Health Care Education/Training Program
DX: E03.9 Hypothyroidism, unspecified (principal); R53.83 Other fatigue; I10 Essential (primary) hypertension; N39.0 Urinary tract infection, site not specified
CPT/HCPCS: 36415; 80053; 80061; 83735; 84443; 85025

== ENCOUNTER → 2019-11-21 08:23 | Outpatient (BNVA) | payer MEDICARE, SELFPAY | PROVIDERS: PCP Student in an Organized Health Care Education/Training Program; Referring Provider Student in an Organized Health Care Education/Training Program; Visit Provider Nurse Practitioner Gerontology | DX: N39.0 Urinary tract infection, site not specified (principal); I10 Essential (primary) hypertension | CPT/HCPCS: 99204; 99215 ==

== ENCOUNTER 2019-11-22 00:41 | Outpatient (CLI) | payer MEDICARE, SELFPAY ==
--- NOTE | 2019-11-22 07:15 | DI.US_ITS ---
EXAM: US RENAL CLINICAL HISTORY: ? structural area/stone for recurrent UTIs, N39.0. TECHNIQUE: Smith scale, color and spectral Doppler were used. COMPARISON: CT ABD PELVIS WITH CONTRAST from 10/18/2017 FINDINGS: Renal size in cm: Right: 11.4 left: 11.7 Echogenicity: Normal. Hydronephrosis: No. Cyst or mass: Stable 2.1 cm simple cyst in the right kidney. Nephrolithiasis: No. Other findings: None. Bladder:Not adequately prepped. Ureteral jets: Right: Urinary bladder not adequately prepped. Ureteral jet not visualized. Left: Urinary bladder not adequately prepped. Ureteral jet not visualized. Prevoid vol:0 cc Postvoid vol: cc IMPRESSION: 1. No evidence of nephrolithiasis or hydronephrosis. 2. Urinary bladder cannot be adequately evaluated sonographically. DATA REPOSITORY:
== END 2019-11-22 01:01 ==
PROVIDERS: PCP Student in an Organized Health Care Education/Training Program; Visit Provider Nurse Practitioner Gerontology
DX: N39.0 Urinary tract infection, site not specified (principal); N28.1 Cyst of kidney, acquired
CPT/HCPCS: 76770; 87086

== ENCOUNTER → 2019-11-26 09:24 | Outpatient (BNVA) | payer MEDICARE, SELFPAY | PROVIDERS: PCP Student in an Organized Health Care Education/Training Program; Referring Provider Student in an Organized Health Care Education/Training Program; Visit Provider Nurse Practitioner Gerontology | DX: N28.1 Cyst of kidney, acquired (principal); Z87.440 Personal history of urinary (tract) infections; Z72.89 Other problems related to lifestyle; R30.0 Dysuria | CPT/HCPCS: 81003; 99213 ==

== ENCOUNTER → 2020-01-02 13:46 | Outpatient (BNVA) | payer MEDICARE, SELFPAY | PROVIDERS: PCP Student in an Organized Health Care Education/Training Program; Referring Provider Student in an Organized Health Care Education/Training Program; Visit Provider Nurse Practitioner Gerontology | DX: R53.83 Other fatigue (principal); I10 Essential (primary) hypertension | CPT/HCPCS: 81003; 99213 ==

== ENCOUNTER → 2020-04-16 13:27 | Outpatient (BNVA) | payer MEDICARE, SELFPAY | PROVIDERS: PCP Student in an Organized Health Care Education/Training Program; Referring Provider Student in an Organized Health Care Education/Training Program; Visit Provider Nurse Practitioner Gerontology | DX: R32 Unspecified urinary incontinence (principal); Z71.1 Person with feared health complaint in whom no diagnosis is made; I10 Essential (primary) hypertension | CPT/HCPCS: 81003; 99213 ==

== ENCOUNTER 2020-05-12 09:18 | Outpatient (CLI) | payer MEDICARE, SELFPAY ==
--- NOTE | 2020-05-12 10:30 | DI.RAD_ITS ---
EXAM: XR SHOULDER LT COMPLETE 2+V CLINICAL HISTORY: Pain, immobility after fall, left shoulder, M25.512, [id number]. TECHNIQUE: 2D digital imaging was performed. COMPARISON: No exams were available for comparison FINDINGS: BONES: No acute fracture is present. No bony destructive lesion is seen. JOINTS: No dislocation present. Mild degenerative changes of the AC joint. SOFT TISSUE: Normal. IMPRESSION: No acute or healing fracture or dislocation. DATA REPOSITORY: RADIATION DOSE DELIVERED:
== END 2020-05-12 09:38 ==
PROVIDERS: PCP Student in an Organized Health Care Education/Training Program; Visit Provider Nurse Practitioner
DX: M25.512 Pain in left shoulder (principal)
CPT/HCPCS: 73030

== ENCOUNTER 2020-05-30 03:31 | Outpatient (CLI) | payer MEDICARE, SELFPAY ==
[2020-05-30 12:53] LABS: TSH (W/Ref FT4) 1.41 uIU/mL (0.36-3.74)
== END 2020-05-30 03:51 ==
PROVIDERS: PCP Student in an Organized Health Care Education/Training Program; Visit Provider Student in an Organized Health Care Education/Training Program
DX: E03.9 Hypothyroidism, unspecified (principal); R53.83 Other fatigue
CPT/HCPCS: 36415; 84443

== ENCOUNTER → 2020-06-05 08:24 | Outpatient (BNVA) | payer MEDICARE, SELFPAY | PROVIDERS: PCP Student in an Organized Health Care Education/Training Program; Referring Provider Student in an Organized Health Care Education/Training Program; Visit Provider Student in an Organized Health Care Education/Training Program | DX: S46.012A Strain of muscle(s) and tendon(s) of the rotator cuff of left shoulder, initial encounter (principal); W00.0XXA Fall on same level due to ice and snow, initial encounter | CPT/HCPCS: 20610; 99214; J1040 ==

== ENCOUNTER 2020-08-25 14:06 | Outpatient (REF) | payer MEDICARE, SELFPAY ==
[2020-08-25 18:24] LABS: Anion Gap 11.4 mmol/L (3-11); BUN 12 mg/dL (7-18); CO2 22.6 mmol/L (21.0-32.0); CREATININE 0.6 mg/dL (0.55-1.02); Calcium 9.4 mg/dL (8.5-10.1); Chloride 106 mmol/L (98-107); Glucose 90 mg/dL (74-106); Magnesium 1.9 mg/dL (1.8-2.4); Potassium 4.1 mmol/L (3.5-5.1); Sodium 140 mmol/L (136-145); TSH (W/Ref FT4) 2.13 uIU/mL (0.36-3.74)
== END 2020-08-25 14:07 | disposition home or self-care (01) ==
LOC: LBN 14:06
PROVIDERS: Nurse Practitioner Adult Health; PCP Student in an Organized Health Care Education/Training Program; Visit Provider Nurse Practitioner Family
DX: E03.9 Hypothyroidism, unspecified (principal); M79.651 Pain in right thigh; M62.838 Other muscle spasm; Z51.81 Encounter for therapeutic drug level monitoring
CPT/HCPCS: 80048; 83735; 84443

== ENCOUNTER 2020-08-28 01:23 | Outpatient (CLI) | payer MEDICARE, SELFPAY ==
--- NOTE | 2020-08-28 07:45 | DI.US_ITS ---
EXAM: US LOWER EXTREMITY VENOUS RT CLINICAL HISTORY: r/o DVT or other thromb,(very low suspicion)RT THIGH PAIN,M79.651, MUSCLE. TECHNIQUE: Lower extremity venous ultrasound performed using grayscale, color-flow, and spectral Do ppler analysis. COMPARISON: No exams were available for comparison FINDINGS: The common femoral, femoral and popliteal veins demonstrate normal compressibility, augmentation, and color Doppler. The posterior tibial veins are patent. No saphenous vein thrombosis or other superfi cial venous thrombosis is seen. No hematoma or Porter's cyst is seen. IMPRESSION: Negative lower extremity ultrasound. No evidence of DVT. DATA REPOSITORY:
== END 2020-08-28 01:43 ==
PROVIDERS: PCP Nurse Practitioner Family; Visit Provider Nurse Practitioner Adult Health
DX: M79.651 Pain in right thigh (principal)
CPT/HCPCS: 93971

== ENCOUNTER 2020-09-16 03:28 | Outpatient (CLI) | payer MEDICARE, SELFPAY ==
[2020-09-16 10:32] LABS: Abs Immature Grans 0.02 10^3/uL (0.0-0.06); Absolute Basophil Count 0.06 10^3/uL (0.0-0.2); Absolute Eosinophil Count 0.25 10^3/uL (0.0-0.7); Absolute Lymphocyte Count 3.18 10^3/uL (1.2-3.4); Absolute Monocyte Count 0.67 10^3/uL (0.1-0.8); Absolute Neutrophil Count 4.46 10^3/uL (1.2-6.7); Basophils % 0.7; Eosinophils % 2.9; HCT 43.5 % (36.0-46.0); HGB 14.8 g/dL (11.2-15.7); Immature Grans % 0.2; Lymphocytes % 36.8; MCH 31.5 pg (27.0-33.0); MCV 92.6 fL (80-95); MPV 10.2 fL (8.0-11.0); Monocytes % 7.8; Neutrophils % 51.6; Nucleated RBC 0 %; Platelet Count 239 10^3/uL (130-400); RDW-SD 44.5 fL; WBC 8.64 10^3/uL (4.4-10.8)
[2020-09-16 11:38] LABS: ALT 25 U/L (14-59); AST 19 U/L (15-37); Albumin 3.9 g/dL (3.4-5.0); Alkaline Phosphatase 66 U/L (46-116); Bilirubin, Direct 0.1 mg/dL (0.0-0.2); Bilirubin, Total 0.4 mg/dL (0.2-1.0); Total Protein 7.7 g/dL (6.4-8.2)
[2020-09-17 11:00] LABS: Hepatitis C Ab w Rflx HCV PCR Negative (Negative)
== END 2020-09-16 03:29 | disposition home or self-care (01) ==
LOC: LBO 03:28
PROVIDERS: PCP Nurse Practitioner Family; Visit Provider Nurse Practitioner Family
DX: R53.83 Other fatigue (principal); Z11.59 Encounter for screening for other viral diseases
CPT/HCPCS: 36415; 80076; 86803; 84443; 85025

== ENCOUNTER 2020-10-17 21:44 | Inpatient (IN) | payer MEDICARE, SELFPAY ==
[2020-10-17] VITALS (9 sets, daily range): BP systolic 144–158; BP diastolic 71–84; PULSE 89–101; RESP 19–28; TEMP 37.3; O2SAT 92–96
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
[2020-10-17 22:15] LABS: Lactate 1.1 mmol/L (0.6-1.4)
--- NOTE | 2020-10-17 22:15 | RT.EKG_ITS ---
APPROVED REPORT Exam: Resting ECG Reason for Exam: RUQ pain Patient Location: E HR:94 bpm ECG Measurements Heart Rate 94 AXIS MN 168 P 24 QRSd 76 QRS 25 QT 339 T 1 QTc 425 Conclusion Sinus rhythm. Borderline T abnormalities, diffuse leads...T flat/neg
[2020-10-17 22:28] LABS: Abs Immature Grans 0.05 10^3/uL (0.0-0.06); Absolute Basophil Count 0.08 10^3/uL (0.0-0.2); Absolute Eosinophil Count 0.21 10^3/uL (0.0-0.7); Absolute Lymphocyte Count 2.66 10^3/uL (1.2-3.4); Absolute Monocyte Count 1.08 10^3/uL (0.1-0.8); Absolute Neutrophil Count 11.85 10^3/uL (1.2-6.7); Basophils % 0.5; Eosinophils % 1.3; HCT 44.1 % (36.0-46.0); HGB 14.7 g/dL (11.2-15.7); Immature Grans % 0.3; Lymphocytes % 16.7; MCH 30.9 pg (27.0-33.0); MCHC 33.3 % (32.0-36.0); MCV 92.6 fL (80-95); MPV 10.1 fL (8.0-11.0); Monocytes % 6.8; Neutrophils % 74.4; Nucleated RBC 0 %; Platelet Count 233 10^3/uL (130-400); RBC 4.76 10^6/uL (3.93-5.22); RDW 13.3 % (11.7-14.6); RDW-SD 45.5 fL; WBC 15.93 10^3/uL (4.4-10.8)
[2020-10-17 22:32] LABS: ALT 23 U/L (14-59); AST 18 U/L (15-37); Alkaline Phosphatase 72 U/L (46-116); Anion Gap 14.1 mmol/L (3-11); BUN 15 mg/dL (7-18); Bilirubin, Total 0.3 mg/dL (0.2-1.0); CO2 21.9 mmol/L (21.0-32.0); CREATININE 0.7 mg/dL (0.55-1.02); Calcium 9.5 mg/dL (8.5-10.1); Chloride 105 mmol/L (98-107); Glucose 124 mg/dL (74-106); Lipase 119 U/L (73-393); Potassium 3.8 mmol/L (3.5-5.1); Sodium 141 mmol/L (136-145); Total Protein 8.5 g/dL (6.4-8.2)
[2020-10-17] MEDS: Normal Saline 1,000 ML 1000 ML IV (22:33)
[2020-10-17] MEDS: Ondansetron 4 MG/2 ML VIAL IVP (22:34)
[2020-10-17 22:48] LABS: Troponin I < 0.05 ng/mL (<0.06)
[2020-10-17] MEDS: Normal Saline Flush 10 ML SYR IVP (23:15)
[2020-10-17] MEDS: Omnipaque 350 MG/ML 100 ML BTL IJ (23:16)
[2020-10-17] MEDS: Normal Saline - Diluent 50 ML VIAL IV (23:16)
--- NOTE | 2020-10-17 23:16 | DI.CT_ITS ---
Exam(s) CT ABDOMEN PELVIS W EXAM: CT ABDOMEN PELVIS W CLINICAL HISTORY: R sided pain TECHNIQUE: Imaging Protocol: Axial computed tomography images with coronal and sagittal reformatted images were created and reviewed CONTRAST MATERIAL: Intravenous: Omnipaque 350 Contrast volume:100 mL Oral: No COMPARISON: CT ABD PELVIS WITH CONTRAST from 10/18/2017 CT CHEST FOR PULMONARY EMBOLUS from 10/23/2017 FINDINGS: The examination is limited due to patient motion artifact. ABDOMEN: Lung Bases: Mild scarring or atelectasis in the lung bases. There is a small hiatal hernia. Liver: Normal density. There is stable tiny hepatic cysts. No suspicious hepatic masses. Portal, Superior Mesenteric, and Splenic Veins: Unremarkable. Gallbladder and Biliary Tract: No radiodense calculus or dilation. Pancreas: Normal density, no abnormal calcifications or inflammatory process. There is a duodenal div erticulum adjacent to the pancreatic head. Spleen: Normal. Adrenals: No masses seen. Kidneys: Normal size, contour and axis. No radiodense stones or obstructive uropathy. There is a stab le right renal cyst. Abdominal Aorta: Abdominal portion non-dilated. Mild atherosclerosis. Bowel: No evidence of bowel obstruction. The appendix is distended measuring 1.2 cm in diameter. Th ere is an appendicoliths present. Periappendiceal inflammatory changes are seen. No focal fluid col lection is seen to suggest an abscess. The findings are most suggestive of acute appendicitis. No o ther inflammatory changes are seen in the bowel. Peritoneal Cavity: No ascites, collection or mesenteric inflammatory response. No free air. Lymph Nodes: Within normal limits. Bones: Within normal limits for the patient's age. Soft Tissues: Unremarkable. PELVIS: Bladder: Symmetric distention, no gross wall thickening. Reproductive Organs: Unremarkable as visualized. Lymph Nodes: Within normal limits. Bones: Within normal limits for the patient's age. IMPRESSION: Findings consistent with acute appendicitis. No evidence of abscess or free air. RADIATION DOSE DELIVERED: 1,055.72mGy.cm Total DLP DATA REPOSITORY: All CT scans at this facility are submitted to the National Radiology Data Registry (NRDR) Dose Index Registry (DIR) with the [employer] (A[employer]). RADIATION OPTIMIZATION: All CT scans at this facility use at least one of these dose optimization te chniques: automated exposure control; mA and/or kV adjustment per patient size (includes targeted exa ms where dose is matched to clinical indication); or iterative reconstruction.
[2020-10-17 23:55] LABS: Bilirubin Negative (Negative); Blood Small (Negative); Clarity Clear (Clear); Glucose Negative (Negative); Ketones Negative (Negative); Leukocyte Esterase Negative (Negative); Nitrite Negative (Negative); Urobilinogen 0.2 EU/dL (Up TO 0.2); pH 5.5 (5-8)
[2020-10-18] VITALS (30 sets, daily range): BP systolic 89–151; BP diastolic 44–89; PULSE 58–98; RESP 15–34; TEMP 36.2–38.3; TEMPC 37.1; O2SAT 86–95; BMI 37.0
--- NOTE | 2020-10-18 | DI.VRAD_ITS ---
Addendum created by Kam Freed MD on 10/18/2020 8:46:22 AM EDT: Findings were discussed with Dr. Cade at 10/18/2020 8:45 AM EDT. Initial report created on 10/17/2020 11:59:13 PM EDT: PROCEDURE INFORMATION: Exam: CT Abdomen And Pelvis With Contrast Exam date and time: 10/17/2020 10:08 PM Age: 75 years old Clinical indication: Abdominal pain; Localized; Right TECHNIQUE: Imaging protocol: Computed tomography of the abdomen and pelvis with contrast. Total images: 1209 Radiation optimization: All CT scans at this facility use at least one of these dose optimization techniques: automated exposure control; mA and/or kV adjustment per patient size (includes targeted exams where dose is matched to clinical indication); or iterative reconstruction. Contrast material: [id number]; Contrast volume: 100 ml; Contrast route: INTRAVENOUS (IV); COMPARISON: CT ABD PELVIS WITH CONTRAST 10/18/2017 5:49 PM FINDINGS: Lungs: Lung bases are unremarkable. Liver: Tiny hepatic cysts. Gallbladder and bile ducts: No calcified stones, wall thickening or biliary dilatation. Pancreas: No mass or peripancreatic edema. Spleen: Homogeneously enhances. No splenomegaly. Adrenal glands: No adrenal nodule. Kidneys and ureters: Small right renal cyst. No renal calculi or hydronephrosis. Stomach and bowel: Incidental duodenal diverticulum. Mild wall thickening at the tip of the cecum. Masslike low-density at the level of the ileocecal valve may represent mixed liquid/solid stool. No small bowel dilatation. Appendix: The appendix is distended measuring approximately 1.1 cm in diameter. The appendiceal wall is mildly thickened. There is appendicolith near its base. Adjacent stranding. No extraluminal air or abscess. Small bowel dilatation. Intraperitoneal space: No free air or free fluid. Vasculature: No abdominal aortic aneurysm. Lymph nodes: No significant adenopathy. Urinary bladder: No definite bladder wall thickening. Reproductive: Unremarkable as visualized. Bones/joints: There is significant degenerative disc disease at L5-S1. Soft tissues: Extra-abdominal soft tissues are unremarkable. IMPRESSION: 1. Acute appendicitis. 2. THIS REPORT CONTAINS FINDINGS THAT MAY BE CRITICAL TO PATIENT CARE. The findings were verbally communicated via telephone conference with Travis Shafer at 11:57 PM EDT on 10/17/2020. The findings were acknowledged and understood. Dictated and Authenticated by: Kam Freed MD. Ordering:CHRISTIAN Robles MD
[2020-10-18 00:07] LABS: Bacteria Few HPF (Negative); C & S Indicated? No/Sq. Contamination; Casts Negative LPF (Negative); Crystals Negative HPF (Negative); Epithelial Cells Moderate HPF (Negative); Mucus Negative (Negative)
[2020-10-18 00:21] LABS: Source Nasal/Nares
[2020-10-18] MEDS: ERTAPENEM 1 GM in Normal Saline 50 ML IVPB ×2 (00:56→15:00)
[2020-10-18 01:20] LABS: INR 1.1 (0.9-1.1); PTT Activated 24.8 sec (21.0-27.5); Prothrombin Time 10.6 sec (9.3-11.0)
[2020-10-18] MEDS: MORPHine 2 MG/ML SYR IVP ×3 (01:40→09:34)
--- NOTE | 2020-10-18 01:45 | DI.RAD_ITS ---
Exam(s) XR CHEST 2V PA LATERAL EXAM: XR CHEST 2V PA LATERAL CLINICAL HISTORY: tachypnea TECHNIQUE: 2D digital imaging was performed. COMPARISON: CR XR CHEST 2V PA LATERAL from 09/30/2018 FINDINGS: Poor patient inspiration. The examination is limited due to patient motion artifact. MEDIASTINUM: Normal. HEART: Normal. PULMONARY VASCULATURE: Normal. LUNGS: Clear. Stable scarring in the right mid lung. PLEURAL SPACE: No pleural effusion or pneumothorax. BONE:Within normal limits for the patient's age. OTHER FINDINGS:Normal. IMPRESSION: No acute pulmonary findings. DATA REPOSITORY: RADIATION DOSE DELIVERED:
--- NOTE | 2020-10-18 02:01 | DI.VRAD_ITS ---
PROCEDURE INFORMATION: Exam: XR Chest Exam date and time: 10/18/2020 12:43 AM Age: 75 years old Clinical indication: Tachypnea TECHNIQUE: Imaging protocol: XR of the chest. Views: 2 views. Total images: 2 COMPARISON: CR XR CHEST 2V PA LATERAL 09/30/2018 10:04 AM FINDINGS: Lungs: Lung volumes are decreased. No consolidation. No vascular congestion. Minimal scarring in the right mid lung. Pulmonary kristian: Unremarkable contours. Pleural spaces: No pleural effusion. No pneumothorax. Heart/Mediastinum: Unremarkable contours. No cardiomegaly. Bones/joints: Unremarkable. Intraperitoneal space: Visualized upper abdomen is unremarkable. IMPRESSION: Stable chest. No acute findings. No pneumonia or signs of CHF. Dictated and Authenticated by: Zhou Henao MD. Ordering:ABIDA Xiao MD
[2020-10-18] MEDS: Normal Saline Flush 10 ML SYR IVP ×2 (02:05→09:33)
[2020-10-18] MEDS: Normal Saline 1,000 ML 150 ML IV ×2 (02:05→08:26)
[2020-10-18 08:06] LABS: Absolute Basophil Count 0.04 10^3/uL (0.0-0.2); Absolute Lymphocyte Count 0.95 10^3/uL (1.2-3.4); Absolute Monocyte Count 1.21 10^3/uL (0.1-0.8); Absolute Neutrophil Count 17.56 10^3/uL (1.2-6.7); Basophils % 0.2; HCT 39.7 % (36.0-46.0); HGB 13.2 g/dL (11.2-15.7); Immature Grans % 0.5; Lymphocytes % 4.8; MCH 31.4 pg (27.0-33.0); MCHC 33.2 % (32.0-36.0); MCV 94.3 fL (80-95); MPV 9.9 fL (8.0-11.0); Monocytes % 6.1; Neutrophils % 88.4; Nucleated RBC 0 %; Platelet Count 209 10^3/uL (130-400); RBC 4.21 10^6/uL (3.93-5.22); RDW 13.7 % (11.7-14.6); WBC 19.86 10^3/uL (4.4-10.8)
[2020-10-18 08:19] LABS: ALT 19 U/L (14-59); AST 15 U/L (15-37); Albumin 3.4 g/dL (3.4-5.0); Alkaline Phosphatase 53 U/L (46-116); Anion Gap 10.4 mmol/L (3-11); BUN 11 mg/dL (7-18); Bilirubin, Total 0.5 mg/dL (0.2-1.0); CO2 22.6 mmol/L (21.0-32.0); CREATININE 0.7 mg/dL (0.55-1.02); Calcium 8.3 mg/dL (8.5-10.1); Chloride 107 mmol/L (98-107); Glucose 148 mg/dL (74-106); Magnesium 1.6 mg/dL (1.8-2.4); Potassium 3.4 mmol/L (3.5-5.1); Sodium 140 mmol/L (136-145); Total Protein 7.5 g/dL (6.4-8.2)
[2020-10-18 09:48] LABS: COVID-19 PCR Negative (Negative)
--- NOTE | 2020-10-18 10:27 | W.ANESPRE ---
General Info Date of Service Date Performed: 10/18/20 Height: 5 ft 1 in Weight: 89.1 kg Body Mass Index (BMI): 37.0 Meds Allergies and Home Medications Allergies Allergy/AdvReac Type Severity Reaction Status Date / Time Penicillins Allergy Intermediate Skin Rash, Verified 10/17/20 21:57 V&D horse fly bites AdvReac Mild arms Uncoded 10/17/20 21:57 swelled seasonal AdvReac Mild Uncoded 10/17/20 21:57 Home Medication Medication Instructions Recorded cholecalciferol (vitamin D3) 1,000 unit PO DAILY 02/13/13 Probiotic 1 ea PO PRN 12/15/15 ibuprofen 200 mg tablet 400 mg PO QID PRN tab 09/19/18 amlodipine 5 mg tablet 5 mg PO DAILY #90 tab-cap 05/12/20 omeprazole 40 mg capsule,delayed 40 mg PO DAILY #90 cap 05/12/20 release psyllium seed (sugar) oral powder 1 tbsp PO DAILY PRN 05/29/20 levothyroxine 50 mcg tablet 50 mcg PO DAILY #90 tab-cap 09/15/20 ascorbic wakp-mjyikbwk-equ 1 packet PO DAILY 10/17/20 [Emergen-C] Current Visit Medications: Current Medications Generic Name Dose Route Start Last Admin Trade Name Freq PRN Reason Stop Dose Admin Magnesium Sulfate 2 gm in 50 mls @ 25 mls/hr 10/18/20 08:36 IVPB 10/18/20 10:35 NOW ONE Potassium Chloride 10 meq in 100 mls @ 100 mls/hr 10/18/20 08:45 IVPB 10/18/20 11:44 Q1H SABINA Sodium Chloride 1,000 mls @ 75 mls/hr 10/18/20 09:45 Saline 1000ml Bag IV INFUSION SABINA IV Miscellaneous Supplies 1 each 10/18/20 00:45 Iv Access IV DIRECTED SABINA Iohexol 100 ml 10/17/20 23:30 10/17/20 23:16 Omnipaque 350 Mg/Ml 100 Ml Btl IJ 11/16/20 23:59 100 ml DIRECTED SABINA Administration Morphine Sulfate 2 mg 10/18/20 00:33 10/18/20 09:34 Morphine 2 Mg/Ml Syr IVP 2 mg Q1H PRN PRN Administration Ondansetron HCl 4 mg 05/29/21 00:33 Ondansetron 4 Mg/2 Ml Vial IVP Q4H PRN PRN Sodium Chloride 0 ml 10/17/20 23:15 10/18/20 09:33 Normal Saline Flush 10 Ml Syr IVP 20 ml PRN PRN Administration PFSH Active Problems Active Problems: Problem Status Onset Code Acute appendicitis K35.80 Essential hypertension I10 Hyperlipidemia, unspecified E78.5 GERD (gastroesophageal reflux disease) Hiatal hernia K44.[address] Z96.21 Sensorineural hearing loss (SNHL) H90.5 Vitamin D deficiency E55.9 Obesity E66.9 Traumatic tear of left rotator cuff S46.012A Otosclerosis H80.90 Osteopenia M85.80 Hypothyroidism E03.9 Fibrocystic breast disease (FCBD) N60.19 Skin lesion of back L98.9 Medical History Medical History Esophageal ulcer without bleeding Per 12/17/2009 EGD ([facility] [place]) --> resolved with repeat EGD 03/18/2020 Essential hypertension Fibrocystic breast disease (FCBD) GERD (gastroesophageal reflux disease) Continue PPI indefinitely per [facility] [place] GI (03/18/2010); h/o esophageal ulcer & hiatal hernia Hiatal hernia Small, per 03/18/2010 EGD ([facility] [place]) Hyperlipidemia, unspecified Statin intolerance Hypothyroidism Obesity Osteopenia Otosclerosis Posterior tibial tendon dysfunction (PTTD) of right lower extremity (12/15/15) Sensorineural hearing loss (SNHL) Subfibular impingement of right lower extremity (12/15/15) Traumatic tear of left rotator cuff Tubular adenoma of colon (09/12/17) Vitamin D deficiency Surgical History Surgical History Colonoscopy - MAC (09/12/17) Hiatal Hernia History of cochlear implant Right Tobacco Smoking/Tobacco Use Status: Former Tobacco Use Alcohol Alcohol Intake: current Alcohol intake frequency: a few times a week Substance Use Substance use: Never Substance use type: does not use Vital Signs and Lab Results Vital Signs Most Recent Vital Signs in EMR: Most Recent Vital Signs Temp Pulse Resp BP Pulse Ox 38.3 C H 92 H 28 H 151/89 H 92 10/18/20 09:49 10/18/20 09:49 10/18/20 09:49 10/18/20 09:49 10/18/20 09:49 Lab Results Result Diagrams: 10/18/20 07:56 10/18/20 07:56 Blood Type / Crossmatch: No Data to Display Complete Blood Count: White Blood Count 19.86 10^3/uL (4.4-10.8) H 10/18/20 07:56 10/18/20 Red Blood Count 4.21 10^6/uL (3.93-5.22) 10/18/20 07:56 10/18/20 Hemoglobin 13.2 g/dL (11.2-15.7) 10/18/20 07:56 10/18/20 Hematocrit 39.7 % (36.0-46.0) 10/18/20 07:56 10/18/20 Platelet Count 209 10^3/uL (130-400) 10/18/20 07:56 10/18/20 Complete Metabolic Panel: Sodium Level 140 mmol/L (136-145) 10/18/20 07:56 10/18/20 Potassium Level 3.4 mmol/L (3.5-5.1) L 10/18/20 07:56 10/18/20 Chloride Level 107 mmol/L (98-107) 10/18/20 07:56 10/18/20 Carbon Dioxide Level 22.6 mmol/L (21.0-32.0) 10/18/20 07:56 10/18/20 Blood Urea Nitrogen 11 mg/dL (7-18) 10/18/20 07:56 10/18/20 Creatinine 0.7 mg/dL (0.55-1.02) 10/18/20 07:56 10/18/20 Magnesium Level 1.6 mg/dL (1.8-2.4) L 10/18/20 07:56 10/18/20 Calcium Level 8.3 mg/dL (8.5-10.1) L 10/18/20 07:56 10/18/20 Albumin 3.4 g/dL (3.4-5.0) 10/18/20 07:56 10/18/20 Glucose Level 148 mg/dL (74-106) H 10/18/20 07:56 10/18/20 Liver Function Panel: Alanine Aminotransferase (ALT/SGPT) 19 U/L (14-59) 10/18/20 07:56 10/18/20 Aspartate Amino Transf (AST/SGOT) 15 U/L (15-37) 10/18/20 07:56 10/18/20 Coagulation Panel: INR International Normalized Ratio 1.1 (0.9-1.1) 10/18/20 00:43 10/18/20 Prothrombin Time 10.6 sec (9.3-11.0) 10/18/20 00:43 10/18/20 Activated Partial Thromboplast Time 24.8 sec (21.0-27.5) 10/18/20 00:43 10/18/20 Cardiac Panel: Troponin I < 0.05 ng/mL (<0.06) 10/17/20 22:10 10/17/20 Arterial Blood Gas: No Data to Display Venous Blood Gas: Venous Blood Lactate 1.1 mmol/L (0.6-1.4) 10/17/20 22:10 10/17/20 Pancreas Panel: Lipase 119 U/L (73-393) 10/17/20 22:10 10/17/20 Thyroid Panel: No Data to Display Infectious Disease: Coronavirus (COVID-19)(PCR) Negative (Negative) 10/18/20 00:15 10/18/20 Coronavirus 2019 Source Nasal/nares 10/18/20 00:15 10/18/20 Blood Cultures: No Data to Display Toxicology Panel: No Data to Display Anesthesia Assessment and Plan Anesthesia History Personal History: No History of Anesthesia Complications Family History: No Family History of Anesthesia Complications Exercise Tolerance Exercise Tolerance: Metabolic Equivalents>4 Pertinent Negatives Pertinent Negatives: No Symptoms of GERD, No Major Cardiovascular Symptoms or Complaints and No Major Pulmonary Symptoms or Complaints (tachypneic) Cardiac & Pulmonary Exam Cardiac Exam: Normal S1/S2 Heart Sounds Pulmonary Exam: Clear Bilateral Breath Sounds Airway Exam Known Difficult Airway: No Mallampati Class: 2 Mouth Opening: Normal (> 3cm) Thyromental Distance: Greater than 3 cm Neck Range of Motion: Limited ROM (DDD) Neck Circumference: Normal Teeth Condition: Normal Dentition ASA Classification ASA Score: ASA 3 Emergency Case?: Yes NPO Status NPO Status: NPO Clears >2 hours, Solids >8 hours Anesthesia Plan Resuscitation Status: Full Code Anesthesia Technique: General Anesthesia Airway Planned: Endotracheal Tube Monitors Used: Standard Monitors Preoperative Comments:: Limited left arm movement due to recent fall
--- NOTE | 2020-10-18 10:30 | INITIAL_ITS ---
- If Service Date Differs Date of service: 10/18/20 Time of Service: 10:30 Care Management Initial Assess REASON FOR HOSPITALIZATION:: Acute appendicitis. PAST MEDICAL HISTORY/PAST SURGICAL HISTORY:: Medical History: Esophageal ulcer without bleeding - Per 12/17/2009 EGD ([facility] [place] --> resolved with repeat EGD 03/18/2020, Essential hypertension,. Fibrocystic breast disease (FCBD), GERD (gastroesophageal reflux disease) - Continue PPI indefinitely per [facility] [place] [facility] (03/18/2010); h/o esophageal ulcer & hiatal hernia, Hiatal hernia - Small, per 03/18/2010 EGD ([facility] [place]),. Hyperlipidemia, unspecified - Statin intolerance, Hypothyroidism, Obesity,. Osteopenia, Otosclerosis, Posterior tibial tendon dysfunction (PTTD) of right lower extremity (12/15/15), Sensorineural hearing loss (SNHL), Subfibular impingement of right lower extremity (12/15/15), Traumatic tear of left rotator cuff, Tubular adenoma of colon (09/12/17), and Vitamin D deficiency. Surgical History: Colonoscopy - MAC (09/12/17), Hiatal Hernia, and History of cochlear implant - Right. PREVIOUS FUNCTIONAL STATUS/SOCIAL/FAMILY SUPPORTS:: Jennifer lives in [facility] with her , Allan. 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 Jennifer and Allan own a camp on [employer] and Jennifer shares that she enjoys boating, spending time at the camp, and going to [place] during the winter mo nt. Her supports consist of her , twin sister Felisha, and several other family members and friends. Jennifer is independent at baseline. CURRENT FUNCTIONAL STATUS:: Jennifer is laying in bed when CM comes to meet with her. She is pleasant and easily engages in conversation. She shares her daughter, Mayra, and her son-in-law are in [place] visiting from [facility]. They are only here for a few days, so Jennifer is hoping to be discharged home soon, so she can spend some time with Mayra before she goes back to [place]. CM will continue to follow. ADVANCE DIRECTIVES:: None on file; CM offers form and patient declines. Has patient been provided with info about the portal/API?: Yes Did the patient sign up for the portal?: No (Patient declines.) CODE STATUS:: Full Code INSURANCE COVERAGE / FINANCIAL ISSUES:: [employer] and Medicare. CURRENT HOME/COMMUNITY SERVICES/EQUIPMENT:: None. PRIMARY CARE PHYSICIAN:: Sandra Abraham NP. POTENTIAL DISCHARGE NEEDS:: Follow up appointments with PCP and surgeon. PATIENT/FAMILY EDUCATION NEEDS:: Discharge instructions, limitations, medications, and follow up plan of care, including Ask Me Three and self management. ANTICIPATED BARRIERS TO DISCHARGE:: None anticipated at this time. TRANSPORTATION:: Via private vehicle with family. PLAN:: Anticipate Jennifer will be discharged home when medically cleared by provider. She will follow up with her PCP, surgeon, and discharge plan of care as directed. Jennifer will be driven home via private vehicle by family when ready. CM will continue to follow.
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
[2020-10-18] MEDS: Lactated Ringers 1,000 ML 30 ML IV (11:29)
--- NOTE | 2020-10-18 12:36 | APP_PTH ---
PATIENT: Jennifer Esposito LOC: U#:[id number] AGE/SX: 75/F ROOM: RE10/18/[address]: Noe Cade : 1945 BED: A DIS: 10/23/2020 SPEC #: [id number] RECD: 10/21/20 12:32 STATUS: SOUT REQ #: [id number] JOHN: 10/18/20 12:[address]: Noe Cade DEPT: Surgical Specimen RECD BY: Vida Bates ENTERED: 10/21/20 12:33 SP TYPE: Appendix OTHR DR: Sandra Abraham APRN Tissues: 1 - APPENDIX NOT INCIDENTAL Procedures: GROSS AND MICRO LEVEL 3 Comments: [id number]
[2020-10-18] MEDS: Normal Saline 20 ML VIAL (13:00)
--- NOTE | 2020-10-18 13:52 | W.PM.OP ---
Date of service: 10/18/20 Time of Service: 13:52 Operative Note Operative Note DATE OF PROCEDURE: 10/18/20 PRE-OP DIAGNOSIS: acute appendicitis POST-OP DIAGNOSIS: same PROCEDURE: Laparoscopic appendectomy SURGEON: Noe Cade MILLINERY SALESPERSON: Fanny Rodriguez ANESTHESIA TYPE: Local By Surgeon and General LMA/ETT Refer to Anesthesia Record ESTIMATED BLOOD LOSS: 15 PATHOLOGY: other (appendix) COMPLICATIONS: None Patient was transported to: PACU Patient's condition: stable Implants: Indications: This is a 75-year-old female who presented to the ED on 10/17, with a several hour history of abdominal pain. She underwent a clinical evaluation which revealed a leukocytosis, and CT scan consisternt with acute appendictitis. Findings: non-perforated appendix with patchy necrosis; scant free fluid Procedure Description: The patient was identified by name and birthdate, and brought into the operating room. She was moved over to the operating room table and supported in semi-Agarwal's position. Sequential compression devices were applied to the lower extremeties. Monitors were placed. General anesthesia was induced, and the patient was intubated using a Glidescope. She was positioned supine, with her left arm carefully tucked/supported with a sled. A Parks catheter was placed under sterile conditions. Another time out was called and participated in by all members of the OR team. Ancef 2g was instilled. Once we were in agreement, the abdomen was prepped with chlorhexidine, and draped in usual sterile fashion. Given the patient's habitus, the decision was made to enter in the left upper quadrant, at Zamarripa's point. The skin and subcutaneous tissues were infiltrated with local anesthesia. An incision was made, and a 5mm Visiport trocar over a 0 degree camera was utilized to enter the abdomen, visualizing each abdominal wall layer until we were intraperitoneal. Pneumoperitoneum was established. We ensured there was no intra-abdominal injury from obtaining access, and none was visualized. The inflamed appendix was immediately visible in the right lower quadrant. We turned our attention to placing a 12-mm trocar in the left lower quadrant, and a 5mm trocar in the suprapubic region. The patient was re-positioned in Trendelenburg with right side up. The appendix was relatively short and hyperemic with some patchy ischemia. It was grasped and elevated, and a window was created at the juncture of the base of the appendix, and the cecum. The mesoappendix was then taken with serial firings of the Ligasure energy device, ensuring hemostasis. An endo-GIDEON stapler was introduced once the appendix was isolated. The staple was reticulated, and the appendix divided off with a small cuff of cecum. The appendix was placed in an endo-Catch bag. The wound bed was irrigated and aspirated, and observed for hemostasis. The pelvis was irrigated and aspirated. The patient was returned to neutral position, and all visualized irrigant was aspirated. The cecal staple line was once again observed to be hemostatic. I attempted to close the LLQ 12-mm port utilizing a [employer] device, but it was inadequate. So the skin incision was enlarged and figure-of-8 sutures were placed across the fascia, ensuring intra-abdominal contents were not trapped. All incisions were irrigated and infiltrated with local anesthetic. All counts of sharp and soft objects was correct. The incisions were closed with 4-0 monocryl, and skin glue applied. The patient was awakened and extubated in the operating room. The parks catheter was removed. The patient was transferred to the recovery room in stable condition. i
--- NOTE | 2020-10-18 14:29 | W.ANESPOSTOP ---
Postoperative Evaluation Date, Time and Location Date Performed: 10/18/20 Time Performed: 14:30 Patient Location: Day Surgery Unit Vital Signs Most Recent Imported Vital Signs: Most Recent Vital Signs Temp Pulse Resp BP Pulse Ox 36.4 C L 67 15 129/62 92 10/18/20 14:13 10/18/20 14:13 10/18/20 14:13 10/18/20 14:13 10/18/20 14:13 Most Recent Manually Entered Vital Signs: Adult Blood Pressure: 131/88 Heart Rate: 66 Respirations: 16 Oxygen Saturation (%): 95 Temperature (C): 37.1 C Pain Score (0-10 Scale): 0 Pain Score Most Recent Pain Score: Most Recent Pain Score Pain Level 0 10/18/20 14:13 Assessment Mental Status: Awake (Alert & Oriented to Patient Baseline) Airway and Respiratory Function: Patent airway with normal (patient baseline) respiratory exam Cardiovascular Function: Hemodynamically Stable Hydration Status: Adequately Hydrated Nausea & Vomiting: No Nausea or Vomiting Pain: Pt. Denies Any Pain Peripheral Nerve Block: Patient did not receive a nerve block
[2020-10-18] MEDS: POTASSIUM CHLORIDE 10 MEQ/100 ML BAG 100 MEQ IVPB (16:16)
[2020-10-18] MEDS: Methocarbamol 750 MG TAB PO ×2 (16:16→20:05)
[2020-10-18] MEDS: POTASSIUM CHLORIDE/D5-0.45NACL 1,000 ML 80 MEQ IV (16:56)
[2020-10-18] MEDS: Potassium Chloride Liquid 20 MEQ PKT PO (18:13)
[2020-10-19 03:12] VITALS: BP 128/82; PULSE 75; RESP 18; TEMP 37.1; O2SAT 91
[2020-10-19] MEDS: Acetaminophen 500 MG TAB PO ×2 (05:30→16:20)
[2020-10-19] MEDS: POTASSIUM CHLORIDE/D5-0.45NACL 1,000 ML 80 MEQ IV ×2 (05:30→18:54)
[2020-10-19] MEDS: MORPHine 2 MG/ML SYR IVP (05:57)
[2020-10-19] MEDS: Normal Saline Flush 10 ML SYR IVP ×2 (05:58→07:58)
[2020-10-19 07:32] VITALS: BP 126/74; PULSE 66; RESP 18; TEMP 36.6; O2SAT 95
[2020-10-19 07:38] LABS: Abs Immature Grans 0.11 10^3/uL (0.0-0.06); Basophils % 0.2; HGB 11.8 g/dL (11.2-15.7); Immature Grans % 0.6; Lymphocytes % 7.9; MCH 31.6 pg (27.0-33.0); MCHC 33.7 % (32.0-36.0); MCV 93.6 fL (80-95); MPV 10.7 fL (8.0-11.0); Monocytes % 4.9; Neutrophils % 86.4; Nucleated RBC 0 %; Platelet Count 173 10^3/uL (130-400); RBC 3.74 10^6/uL (3.93-5.22); RDW 13.8 % (11.7-14.6); RDW-SD 46.9 fL; WBC 19.16 10^3/uL (4.4-10.8)
[2020-10-19 07:49] LABS: Absolute Basophil Count 0.04 10^3/uL (0.0-0.2); Absolute Lymphocyte Count 1.51 10^3/uL (1.2-3.4); Absolute Monocyte Count 0.94 10^3/uL (0.1-0.8); Absolute Neutrophil Count 16.55 10^3/uL (1.2-6.7)
[2020-10-19] MEDS: Pantoprazole 40 MG VIAL IVP (07:57)
[2020-10-19] MEDS: Enoxaparin 40 MG/0.4 ML SYR SC (07:58)
[2020-10-19] MEDS: Methocarbamol 750 MG TAB PO ×4 (07:58→20:45)
[2020-10-19 08:06] LABS: ALT 16 U/L (14-59); AST 15 U/L (15-37); Albumin 2.8 g/dL (3.4-5.0); Alkaline Phosphatase 56 U/L (46-116); Anion Gap 9.9 mmol/L (3-11); BUN 9 mg/dL (7-18); Bilirubin, Total 0.5 mg/dL (0.2-1.0); CO2 23.1 mmol/L (21.0-32.0); CREATININE 0.7 mg/dL (0.55-1.02); Calcium 8.4 mg/dL (8.5-10.1); Chloride 108 mmol/L (98-107); Glucose 132 mg/dL (74-106); Potassium 3.4 mmol/L (3.5-5.1); Sodium 141 mmol/L (136-145); Total Protein 6.9 g/dL (6.4-8.2)
[2020-10-19 11:31] VITALS: BP 154/75; PULSE 66; RESP 18; TEMP 36.5; O2SAT 94
[2020-10-19] MEDS: ERTAPENEM 1 GM in Normal Saline 50 ML IVPB (14:24)
[2020-10-19 15:02] VITALS: BP 135/69; PULSE 69; RESP 18; TEMP 36.5; O2SAT 94
--- NOTE | 2020-10-19 16:30 | PDOC.CMPRO ---
- If Service Date Differs Date of service: 10/19/20 Time of Service: 16:30 Care Management Progress Note S/O: Jennifer is laying in bed when CM comes to meet with her. She states she is feeling better today than she did yesterday. She talks about her daughter and son-in-law being in [place] and states she has not been able to spend much time with them due to being in the hospital. Jennifer would really like to be discharged home today, so she can spend a day or two with her daughter before she has to go back home to [place]. CM will continue to follow. A: Jennifer is a 75 year old female admitted to [facility] on 10/18/2020 for acute appendicitis. P: Anticipate Jennifer will be discharged home when medically cleared by provider. She will follow up with her PCP, surgeon, and discharge plan of care as directed. She will be driven home via private vehicle by family when ready. CM will continue to support Jennifer and discharge planning needs.
--- NOTE | 2020-10-19 18:28 | W.PM.PROGNOT ---
Date of Service Date of service: 10/19/20 Time of Service: 16:30 Assessment and Plan Assessment and plan (1) Acute appendicitis: Status: Acute Assessment and plan: 75-year-old female POD#1 s/p laparoscopic appendectomy. She is doing very well today, however, has persistent leukocytosis. --regular diet --pain control --Ambulate --incentive spirometry --GI and DVT prophylaxis --I anticipate discharge home tomorrow after antibiotic dose. If WBC still high, may consider discharge on PO abx. 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 Esposito is feeling very well. Her pain is controlled. She is tolerating a diet. She has ambulated in her room. Exam Const General: cooperative, healthy appearing, comfortable and no acute distress Nutritional Appearance: obese Orientation: alert, awake and oriented x3 Resp Effort & Inspection: normal respiratory effort and able to speak in complete sentences Auscultation: clear to auscultation bilaterally Cardio Rate: regular rate Rhythm: regular rhythm Heart Sounds: S1 normal and S2 normal GI Palpation: soft, not firm, no guarding and not rigid Other: appropriate theo-incisional tenderness, dressings c/d/i Skin Other: warm and dry, no rashes noted Neuro General: patient alert, patient awake, patient oriented x3 and no meningeal signs Psych Appearance: grossly normal Speech and Movement: speech and movement normal Mood: congruent mood Affect: normal affect Attitude: cooperative Insight: insight good Objective Last Vital Signs Temp 97.7 F 10/19/20 15:02 Pulse 69 10/19/20 15:02 Resp 18 10/19/20 15:02 BP 135/69 10/19/20 15:02 Pulse Ox 94 10/19/20 15:02 Laboratory Results - last 24 hr 10/19/20 10/19/20 06:53 06:57 WBC 19.16 H RBC 3.74 L Hgb 11.8 Hct 35.0 L MCV 93.6 MCH 31.6 MCHC 33.7 RDW 13.8 Plt Count 173 MPV 10.7 Immature Gran % 0.6 Neutrophils % 86.4 Lymphocytes % 7.9 Monocytes % 4.9 Eosinophils % 0.0 Basophils % 0.2 Nucleated RBC % 0 Absolute Neutrophils 16.55 H Absolute Lymphocytes 1.51 Absolute Monocytes 0.94 H Absolute Eosinophils 0.00 Absolute Basophils 0.04 Sodium 141 Potassium 3.4 L Chloride 108 H Carbon Dioxide 23.1 Anion Gap 9.9 BUN 9 Creatinine 0.7 Estimated GFR/1.73 m2 >= 60.00 Glucose 132 H Calcium 8.4 L Total Bilirubin 0.5 AST 15 ALT 16 Alkaline Phosphatase 56 Total Protein 6.9 Albumin 2.8 L
[2020-10-19] MEDS: oxyCODONE 5 MG TAB PO (21:07)
[2020-10-19] MEDS: Calcium Carbonate *TUMS* 500 MG CHEW 1000 MG PO (21:35)
[2020-10-19 22:49] VITALS: BP 136/70; PULSE 62; RESP 18; TEMP 36.6; O2SAT 94
--- NOTE | 2020-10-20 | DI.RAD_ITS ---
Exam(s) XR PORTABLE CHEST AP EXAM: XR PORTABLE CHEST AP CLINICAL HISTORY: fever TECHNIQUE: 2D digital imaging was performed. COMPARISON: CR,XR XR CHEST 2V PA LATERAL from 10/18/2020 FINDINGS: Poor inspiratory effort. MEDIASTINUM: Normal. HEART: Stable cardiac silhouette with tortuosity of the thoracic aorta. PULMONARY VASCULATURE: Normal. LUNGS: Stable parenchymal scarring in the right mid lung. No focal consolidating infiltrate. PLEURAL SPACE: No pleural effusion or pneumothorax. BONE:Within normal limits for the patient's age. OTHER FINDINGS:Normal. IMPRESSION: No acute pulmonary findings. DATA REPOSITORY: RADIATION DOSE DELIVERED:
[2020-10-20] MEDS: MORPHine 2 MG/ML SYR IVP (02:36)
[2020-10-20] MEDS: Normal Saline Flush 10 ML SYR IVP ×3 (02:36→16:08)
[2020-10-20 03:52] VITALS: BP 151/88; PULSE 82; RESP 17; TEMP 37.7; O2SAT 93
[2020-10-20] MEDS: Acetaminophen 500 MG TAB PO ×5 (04:04→20:36)
[2020-10-20 07:43] LABS: Abs Immature Grans 0.08 10^3/uL (0.0-0.06); Absolute Basophil Count 0.03 10^3/uL (0.0-0.2); Absolute Lymphocyte Count 2.24 10^3/uL (1.2-3.4); Basophils % 0.2; Eosinophils % 0.5; HCT 36.9 % (36.0-46.0); HGB 12.2 g/dL (11.2-15.7); Immature Grans % 0.5; Lymphocytes % 15.2; MCH 30.8 pg (27.0-33.0); MCHC 33.1 % (32.0-36.0); MCV 93.2 fL (80-95); MPV 10.3 fL (8.0-11.0); Monocytes % 5.8; Neutrophils % 77.8; Nucleated RBC 0 %; Platelet Count 179 10^3/uL (130-400); RBC 3.96 10^6/uL (3.93-5.22); RDW 13.7 % (11.7-14.6); RDW-SD 47.3 fL; WBC 14.72 10^3/uL (4.4-10.8)
[2020-10-20 07:46] LABS: Absolute Eosinophil Count 0.07 10^3/uL (0.0-0.7); Absolute Monocyte Count 0.85 10^3/uL (0.1-0.8); Absolute Neutrophil Count 11.45 10^3/uL (1.2-6.7)
[2020-10-20 07:54] LABS: Anion Gap 8.1 mmol/L (3-11); BUN 7 mg/dL (7-18); CO2 25.9 mmol/L (21.0-32.0); CREATININE 0.7 mg/dL (0.55-1.02); Calcium 8.3 mg/dL (8.5-10.1); Chloride 108 mmol/L (98-107); Glucose 110 mg/dL (74-106); Potassium 3.5 mmol/L (3.5-5.1); Sodium 142 mmol/L (136-145)
[2020-10-20] MEDS: POTASSIUM CHLORIDE/D5-0.45NACL 1,000 ML 80 MEQ IV ×2 (07:58→23:56)
[2020-10-20] MEDS: Enoxaparin 40 MG/0.4 ML SYR SC (07:59)
[2020-10-20] MEDS: oxyCODONE 5 MG TAB PO ×4 (08:00→20:37)
[2020-10-20] MEDS: Pantoprazole 40 MG VIAL IVP (08:00)
[2020-10-20] MEDS: Methocarbamol 750 MG TAB PO ×4 (08:00→19:41)
[2020-10-20 08:28] VITALS: BP 146/87; PULSE 83; RESP 18; TEMP 38.2; O2SAT 93
[2020-10-20 11:44] VITALS: TEMP 37.6
[2020-10-20] MEDS: ERTAPENEM 1 GM in Normal Saline 50 ML IVPB (14:21)
[2020-10-20] MEDS: Ondansetron 4 MG/2 ML VIAL IVP (16:09)
[2020-10-20] MEDS: Calcium Carbonate *TUMS* 500 MG CHEW 1000 MG PO (16:09)
--- NOTE | 2020-10-20 16:10 | DI.VRAD_ITS ---
PROCEDURE INFORMATION: Exam: XR Chest Exam date and time: 10/20/2020 3:24 PM Age: 75 years old Clinical indication: Fever TECHNIQUE: Imaging protocol: XR of the chest. Views: 1 view. COMPARISON: CR XR CHEST 2V PA LATERAL 10/18/2020 1:38 AM FINDINGS: Similar appearance both lungs. Similar cardiomediastinal silhouette. Similar/stable bony structures. Impression: Similar/stable appearance of the chest without new acute findings. Dictated and Authenticated by: Thomas Serrano MD. Ordering:AG Liu MD
--- NOTE | 2020-10-20 16:13 | W.PM.PROGNOT ---
Date of Service Date of service: 10/20/20 Time of Service: 15:43 Assessment and Plan Assessment and plan (1) Acute appendicitis: Status: Acute Assessment and plan: 75-year-old female POD#2 s/p laparoscopic appendectomy. She had a fever this morning, and is a little more uncomfortable. Suspect ileus +/- atelecstasis. Her incisions are clean.. 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 Her breathing is better, but she is having more abdominal pain now that she is moving around more. She is passing flatus, no bowel movement. Exam Const General: cooperative Nutritional Appearance: obese Orientation: alert, awake and oriented x3 Other: She looks uncomfortable sitting up in the chair,, but is non-toxic appearing Resp Effort & Inspection: normal respiratory effort and not labored Auscultation: clear to auscultation bilaterally Other: breathing is much improved from the tachypnea she had on admission, and less coughing Cardio Rate: regular rate Rhythm: regular rhythm Heart Sounds: S1 normal and S2 normal GI Palpation: soft and tender (appropriate theo-incisional tenderness; no fullness in LLQ; incisions c/d/i) Auscultation: normal bowel sounds Abdomen image: 1. 2. 3. Skin Other: warm, dry; incsions c/d/i Neuro General: patient alert, patient awake and patient oriented x3 Cognition: normal cognition Speech: speech normal Extrem Other: SCDs to lower extremities Psych Mental Status: mental status grossly normal Affect: normal affect Attitude: cooperative Thought Process: normal Thought Content: normal Insight: insight good Judgment: judgment good Objective Last Vital Signs Temp 99.7 F H 10/20/20 11:44 Pulse 83 10/20/20 08:28 Resp 18 10/20/20 08:28 BP 146/87 H 10/20/20 08:28 Pulse Ox 93 10/20/20 08:28 Laboratory Results - last 24 hr 10/20/20 10/20/20 07:24 07:24 WBC 14.72 H RBC 3.96 Hgb 12.2 Hct 36.9 MCV 93.2 MCH 30.8 MCHC 33.1 RDW 13.7 Plt Count 179 MPV 10.3 Immature Gran % 0.5 Neutrophils % 77.8 Lymphocytes % 15.2 Monocytes % 5.8 Eosinophils % 0.5 Basophils % 0.2 Nucleated RBC % 0 Absolute Neutrophils 11.45 H Absolute Lymphocytes 2.24 Absolute Monocytes 0.85 H Absolute Eosinophils 0.07 Absolute Basophils 0.03 Sodium 142 Potassium 3.5 Chloride 108 H Carbon Dioxide 25.9 Anion Gap 8.1 BUN 7 Creatinine 0.7 Estimated GFR/1.73 m2 >= 60.00 Glucose 110 H Calcium 8.3 L
--- NOTE | 2020-10-20 18:42 | CMPROGNOTE_ITS ---
- If Service Date Differs Date of service: 10/20/20 Time of Service: 18:42 Care Management Progress Note S/O: Per provider note, Jennifer is febrile today. She reports an increase in abdominal pain from yesterday. She denies vomiting but complains of nausea. WBC today is elevated at 14.72, as are Absolute Neutrophils at 11.45 and Absolute Monocytes at 0.85. A chest x-ray does not reveal any acute findings. CM will continue to follow. A: Jennifer is a 75 year old female admitted to [facility] on 10/18/2020 for acute appendicitis. P: Anticipate Jennifer will be discharged home when medically cleared by provider. She will follow up with her PCP, surgeon, and discharge plan of care as directed. She will be driven home via private vehicle by family when ready. CM will continue to support Jennifer and discharge planning needs.
[2020-10-20 19:09] VITALS: BP 152/90; PULSE 77; RESP 19; TEMP 36.2; O2SAT 93
[2020-10-20] MEDS: Docusate Sodium 100 MG CAP PO (19:41)
[2020-10-20 20:42] LABS: Bilirubin Negative (Negative); Blood Small (Negative); Clarity Clear (Clear); Glucose Negative (Negative); Ketones Negative (Negative); Leukocyte Esterase Negative (Negative); Nitrite Negative (Negative); Urobilinogen 0.2 EU/dL (Up TO 0.2); pH 5.5 (5-8)
[2020-10-20 20:56] LABS: Bacteria Negative HPF (Negative); C & S Indicated? No; Casts Negative LPF (Negative); Crystals Negative HPF (Negative); Epithelial Cells Rare HPF (Negative); Mucus Negative (Negative); Other Cells Negative (Negative); RBC 0-2 HPF (0-2); WBC 0-2 HPF (0-5)
--- NOTE | 2020-10-20 21:08 | NUR.NOTE ---
Nursing Note: when i went to help PT to the bathroom i offered her to walk a loop with me, she said not because she was stiff and achy from her nap. she went to the bathroom with me using a walker and myself to assist her up onto her feet.
--- NOTE | 2020-10-21 | DI.RAD_ITS ---
Exam(s) XR ABDOMEN FLAT PLATE EXAM: XR ABDOMEN FLAT PLATE CLINICAL HISTORY: Abd pain TECHNIQUE: COMPARISON: No exams were available for comparison FINDINGS: Three views were obtained. There is moderate generalized dilatation of small and large bowel to the level of the rectum. Findings are consistent with an ileus. Cecum measures about 13 millimeters in diameter and is somewhat prominent with respect to the remainder of the colon. Cecal volvulus not en tirely excluded and if clinically indicated additional evaluation with CT may be considered. A wet reading was provided to the referring medical provider. IMPRESSION: RADIATION DOSE DELIVERED: Total DLP
[2020-10-21] MEDS: oxyCODONE 5 MG TAB PO ×5 (02:00→22:47)
[2020-10-21] MEDS: Acetaminophen 500 MG TAB PO ×5 (02:01→22:48)
[2020-10-21] MEDS: Levothyroxine 50 MCG TAB PO (05:14)
[2020-10-21 05:43] VITALS: BP 133/86; PULSE 85; RESP 14; TEMP 36.7; O2SAT 93
[2020-10-21] MEDS: Simethicone 80 MG CHEW 40 MG PO (05:49)
[2020-10-21 07:29] LABS: Abs Immature Grans 0.06 10^3/uL (0.0-0.06); Absolute Basophil Count 0.03 10^3/uL (0.0-0.2); Absolute Lymphocyte Count 1.92 10^3/uL (1.2-3.4); Absolute Monocyte Count 1.26 10^3/uL (0.1-0.8); Absolute Neutrophil Count 10.11 10^3/uL (1.2-6.7); Basophils % 0.2; Eosinophils % 1.3; HCT 40.2 % (36.0-46.0); HGB 13.4 g/dL (11.2-15.7); Immature Grans % 0.4; Lymphocytes % 14.2; MCH 30.7 pg (27.0-33.0); MCHC 33.3 % (32.0-36.0); Monocytes % 9.3; Neutrophils % 74.6; Nucleated RBC 0 %; Platelet Count 224 10^3/uL (130-400); RBC 4.37 10^6/uL (3.93-5.22); RDW 13.5 % (11.7-14.6); RDW-SD 45.6 fL; WBC 13.55 10^3/uL (4.4-10.8)
[2020-10-21 07:35] LABS: Absolute Eosinophil Count 0.18 10^3/uL (0.0-0.7)
[2020-10-21 07:44] LABS: ALT 22 U/L (14-59); AST 17 U/L (15-37); Albumin 2.8 g/dL (3.4-5.0); Alkaline Phosphatase 61 U/L (46-116); Anion Gap 12.4 mmol/L (3-11); BUN 4 mg/dL (7-18); Bilirubin, Total 0.6 mg/dL (0.2-1.0); CO2 22.6 mmol/L (21.0-32.0); CREATININE 0.7 mg/dL (0.55-1.02); Calcium 8.7 mg/dL (8.5-10.1); Chloride 104 mmol/L (98-107); Glucose 116 mg/dL (74-106); Potassium 3.3 mmol/L (3.5-5.1); Sodium 139 mmol/L (136-145); Total Protein 7.5 g/dL (6.4-8.2)
[2020-10-21 07:49] VITALS: BP 117/77; PULSE 84; RESP 21; TEMP 36.8; O2SAT 92
--- NOTE | 2020-10-21 08:01 | PGE_ITS ---
Date of Service Date of service: 10/21/20 Time of Service: 08:02 Assessment and Plan Assessment and plan (1) Acute appendicitis: Status: Acute Assessment and plan: 75-year-old female POD#3 s/p laparoscopic appendectomy. She had a fever this morning, and is a little more uncomfortable. Suspect ileus +/- atelecstasis. Her incisions are clean.. Pain is fairly well controlled Abdomen is tender with palpation (+) guarding; Will order abdominal Xray ? 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 She states lying down is the most comfortable position at this time. She reports passing some flatus, no BM. Exam Const General: cooperative and comfortable Orientation: alert and oriented x3 Resp Effort & Inspection: normal respiratory effort, no audible wheezes and no cough GI Inspection: normal to inspection and distended Palpation: soft, guarding and tender in the epigastrum and in the RLQ Objective Last Vital Signs Temp 36.8 C 10/21/20 07:49 Pulse 84 10/21/20 07:49 Resp 21 10/21/20 07:49 BP 117/77 10/21/20 07:49 Pulse Ox 92 10/21/20 07:49 Laboratory Results - last 24 hr 10/20/20 10/21/20 10/21/20 20:12 07:15 07:15 WBC 13.55 H RBC 4.37 Hgb 13.4 Hct 40.2 MCV 92.0 MCH 30.7 MCHC 33.3 RDW 13.5 Plt Count 224 MPV 10.0 Immature Gran % 0.4 Neutrophils % 74.6 Lymphocytes % 14.2 Monocytes % 9.3 Eosinophils % 1.3 Basophils % 0.2 Nucleated RBC % 0 Absolute Neutrophils 10.11 H Absolute Lymphocytes 1.92 Absolute Monocytes 1.26 H Absolute Eosinophils 0.18 Absolute Basophils 0.03 Sodium 139 Potassium 3.3 L Chloride 104 Carbon Dioxide 22.6 Anion Gap 12.4 H BUN 4 L Creatinine 0.7 Estimated GFR/1.73 m2 >= 60.00 Glucose 116 H Calcium 8.7 Total Bilirubin 0.6 AST 17 ALT 22 Alkaline Phosphatase 61 Total Protein 7.5 Albumin 2.8 L Urine Color Yellow Urine Clarity Clear Urine pH 5.5 Ur Specific [place] 1.010 Urine Protein Negative Urine Ketones Negative Urine Blood Small H Urine Nitrite Negative Urine Bilirubin Negative Urine Urobilinogen 0.2 Ur Leukocyte Esterase Negative Urine RBC 0-2 Urine WBC 0-2 Ur Epithelial Cells Rare Urine Crystals Negative Urine Bacteria Negative Urine Casts Negative Urine Mucus Negative Urine Other Negative Ur Culture Indicated? No Urine Glucose Negative
[2020-10-21] MEDS: Docusate Sodium 100 MG CAP PO ×3 (08:39→21:34)
[2020-10-21] MEDS: Methocarbamol 750 MG TAB PO ×2 (08:39→12:13)
[2020-10-21] MEDS: Pantoprazole 40 MG VIAL IVP (08:39)
[2020-10-21] MEDS: Normal Saline Flush 10 ML SYR IVP ×3 (08:39→16:33)
[2020-10-21] MEDS: amLODIPine 5 MG TAB PO (08:39)
[2020-10-21] MEDS: Enoxaparin 40 MG/0.4 ML SYR SC (08:39)
[2020-10-21] MEDS: Metoclopramide 10 MG/2 ML VIAL IVP ×3 (10:30→22:47)
[2020-10-21 12:02] VITALS: BP 121/79; PULSE 89; RESP 20; TEMP 36.7; O2SAT 94
--- NOTE | 2020-10-21 12:22 | PDOC.CMPRO ---
- If Service Date Differs Date of service: 10/21/20 Time of Service: 12:22 Care Management Progress Note S/O: Jennifer was sleeping when CM attempted to visit with her twice. Per report, she was able to walk today, but her pain increases with movement. She has not yet had a BM, so MD will start Reglan today. She continues antibiotic therapy, and per report, if no improvement by tomorrow then will order a CT scan. CM will continue to follow. A: Jennifer is a 75 year old female admitted to [facility] on 10/18/2020 for acute appendicitis. P: Anticipate Jennifer will be discharged home when medically cleared by provider. She will follow up with her PCP, surgeon, and discharge plan of care as directed. She will be driven home via private vehicle by family when ready. CM will continue to support Jennifer and discharge planning needs.
[2020-10-21] MEDS: ERTAPENEM 1 GM in Normal Saline 50 ML IVPB (14:07)
[2020-10-21] MEDS: POTASSIUM CHLORIDE/D5-0.45NACL 1,000 ML 80 MEQ IV (14:08)
--- NOTE | 2020-10-21 16:21 | CHAPLAIN ---
Jennifer was resting in bed when I visited. She had a visitor with her, (?). She told me about her surgery and her hope to be discharged soon.
[2020-10-22] VITALS (9 sets, daily range): BP systolic 123–143; BP diastolic 75–84; PULSE 70–80; RESP 18–20; TEMP 36.3–38.4; O2SAT 92–95
[2020-10-22] MEDS: Acetaminophen 500 MG TAB PO ×2 (01:40→19:58)
[2020-10-22] MEDS: Normal Saline Flush 10 ML SYR IVP ×3 (05:01→12:19)
[2020-10-22] MEDS: Metoclopramide 10 MG/2 ML VIAL IVP ×2 (05:01→12:17)
[2020-10-22] MEDS: Levothyroxine 50 MCG TAB PO (05:01)
[2020-10-22 07:17] LABS: Abs Immature Grans 0.08 10^3/uL (0.0-0.06); Absolute Basophil Count 0.05 10^3/uL (0.0-0.2); Absolute Eosinophil Count 0.33 10^3/uL (0.0-0.7); Absolute Monocyte Count 0.97 10^3/uL (0.1-0.8); Basophils % 0.4; Eosinophils % 2.7; HCT 39.7 % (36.0-46.0); HGB 13.4 g/dL (11.2-15.7); Immature Grans % 0.7; Lymphocytes % 18.5; MCH 31.5 pg (27.0-33.0); MCHC 33.8 % (32.0-36.0); MCV 93.4 fL (80-95); MPV 9.8 fL (8.0-11.0); Neutrophils % 69.7; Nucleated RBC 0 %; Platelet Count 243 10^3/uL (130-400); RBC 4.25 10^6/uL (3.93-5.22); RDW 13.3 % (11.7-14.6); RDW-SD 45.6 fL; WBC 12.08 10^3/uL (4.4-10.8)
[2020-10-22 07:21] LABS: Absolute Lymphocyte Count 2.23 10^3/uL (1.2-3.4); Absolute Neutrophil Count 8.42 10^3/uL (1.2-6.7)
[2020-10-22 07:22] LABS: Anion Gap 8.3 mmol/L (3-11); BUN 4 mg/dL (7-18); CO2 27.7 mmol/L (21.0-32.0); CREATININE 0.6 mg/dL (0.55-1.02); Calcium 8.7 mg/dL (8.5-10.1); Chloride 106 mmol/L (98-107); Glucose 121 mg/dL (74-106); Magnesium 1.8 mg/dL (1.8-2.4); Potassium 3.2 mmol/L (3.5-5.1); Sodium 142 mmol/L (136-145)
[2020-10-22] MEDS: Breeza Beverage 473 ML BTL PO ×2 (07:40)
--- NOTE | 2020-10-22 09:02 | W.PM.PROGNOT ---
Date of Service Date of service: 10/22/20 Time of Service: 08:01 Assessment and Plan Assessment and plan (1) Acute appendicitis: Status: Acute Assessment and plan: 75-year-old female POD#4 s/p laparoscopic appendectomy. Abd pain is not improving. Ordered CT scan for further evaluation of abdominal distention and continued discomfort Continue Antibiotics Continue IV fluids Strongly encouraged ambulation and OOB activities Continue with use of incentive spirometer Continue with bowel regimen, discussed use of a suppository to help stimulate a BM. 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 She continues to have abdominal discomfort. She describes minimal flatus, no BM. Exam Const General: cooperative and acute distress mild Orientation: alert and oriented x3 Resp Effort & Inspection: normal respiratory effort, no audible wheezes and no cough GI Inspection: distended Palpation: soft, guarding and tender in the epigastrum Percussion: no fluid wave Objective Last Vital Signs Temp 36.7 C 10/22/20 07:24 Pulse 80 10/22/20 07:24 Resp 19 10/22/20 07:24 BP 142/79 H 10/22/20 07:24 Pulse Ox 93 10/22/20 07:24 Laboratory Results - last 24 hr 10/22/20 10/22/20 07:07 07:07 WBC 12.08 H RBC 4.25 Hgb 13.4 Hct 39.7 MCV 93.4 MCH 31.5 MCHC 33.8 RDW 13.3 Plt Count 243 MPV 9.8 Immature Gran % 0.7 Neutrophils % 69.7 Lymphocytes % 18.5 Monocytes % 8.0 Eosinophils % 2.7 Basophils % 0.4 Nucleated RBC % 0 Absolute Neutrophils 8.42 H Absolute Lymphocytes 2.23 Absolute Monocytes 0.97 H Absolute Eosinophils 0.33 Absolute Basophils 0.05 Sodium 142 Potassium 3.2 L Chloride 106 Carbon Dioxide 27.7 Anion Gap 8.3 BUN 4 L Creatinine 0.6 Estimated GFR/1.73 m2 >= 60.00 Glucose 121 H Calcium 8.7 Magnesium 1.8
[2020-10-22] MEDS: Enoxaparin 40 MG/0.4 ML SYR SC (09:51)
[2020-10-22] MEDS: POTASSIUM CHLORIDE/D5-0.45NACL 1,000 ML 80 MEQ IV (10:08)
[2020-10-22] MEDS: Omnipaque 350 MG/ML 100 ML BTL IJ (10:59)
[2020-10-22] MEDS: Normal Saline - Diluent 50 ML VIAL IV (10:59)
--- NOTE | 2020-10-22 11:03 | DI.CT_ITS ---
Exam(s) CT ABDOMEN PELVIS W EXAM: CT ABDOMEN PELVIS W CLINICAL HISTORY: Abdominal distention, s/p lap. appi TECHNIQUE: Imaging Protocol: Axial computed tomography images with coronal and sagittal reformatted images were created and reviewed CONTRAST MATERIAL: Intravenous: Omnipaque 350 Contrast volume:100 mL Oral: Yes COMPARISON: CT CT ABDOMEN PELVIS W from 10/17/2020 FINDINGS: The examination is limited due to patient motion artifact. ABDOMEN: Lung Bases: Scarring or atelectasis is seen in the lung bases. Liver: Normal density. There are stable hepatic cysts. Portal, Superior Mesenteric, and Splenic Veins: Unremarkable. Gallbladder and Biliary Tract: No radiodense calculus or dilation. Pancreas: Normal density, no abnormal calcifications or inflammatory process. Spleen: Normal. Adrenals: No masses seen. Kidneys: Normal size, contour and axis. No radiodense stones or obstructive uropathy. Stable right re nal cyst. No further follow-up is recommended. Abdominal Aorta: Abdominal portion non-dilated. Atherosclerosis. Bowel: The cecum is distended up to 7.4 cm in diameter and lies in the transverse plane in the mid an terior abdomen. No bowel wall thickening is seen. There is no obstruction as contrast passes beyond the sigmoid the cecum and into the distal colon. Status post appendectomy. There is redundant sigm oid colon extending into the right lower quadrant. There is a duodenal diverticulum adjacent to the head of the pancreas. There is a small hiatal hernia. Peritoneal Cavity: No ascites, collection or mesenteric inflammatory response. No free air.No abdomi nal abscess. Lymph Nodes: Within normal limits. Bones: Within normal limits for the patient's age. Soft Tissues: There is mild edema in the anterior abdominal wall. No focal fluid collection is seen to suggest an abscess. PELVIS: Bladder: Symmetric distention, no gross wall thickening. Reproductive Organs: Unremarkable as visualized. Lymph Nodes: Within normal limits. Bones: Within normal limits for the patient's age. IMPRESSION: 1. Status post appendectomy. No evidence of an abscess. 2. Distended cecum without evidence of bowel obstruction or wall thickening. 3. Mild edema in the anterior abdominal wall and mesentery which may be postsurgical. 4. Bilateral basilar atelectasis or scarring. Pneumonia cannot be entirely excluded. RADIATION DOSE DELIVERED: 1,361.6mGy.cm Total DLP DATA REPOSITORY: All CT scans at this facility are submitted to the National Radiology Data Registry (NRDR) Dose Index Registry (DIR) with the [employer] ([employer]). RADIATION OPTIMIZATION: All CT scans at this facility use at least one of these dose optimization te chniques: automated exposure control; mA and/or kV adjustment per patient size (includes targeted exa ms where dose is matched to clinical indication); or iterative reconstruction.
--- NOTE | 2020-10-22 11:13 | PHA.REVIEW ---
Pharmacy Admission Review - Admission Clinical Review (Last Reviewed 10/18/20 @ 10:42 by Noe Cade MD) Acute appendicitis (Acute) Penicillins Allergy (Intermediate, Verified 10/17/20 21:57) Skin Rash, V&D horse fly bites Adverse Reaction (Mild, Uncoded 10/17/20 21:57) arms swelled seasonal Adverse Reaction (Mild, Uncoded 10/17/20 21:57) Resuscitation Status Full Code Height 5 ft 1 in Weight 89.1 kg - Renal Dosing Renal Dosing: BUN 4 mg/dL (7-18) L 10/22/20 07:07 Creatinine 0.6 mg/dL (0.55-1.02) 10/22/20 07:07 Medications needing adjustments: Reviewed (Crcl ~79.7 mL/min using adjusted body weight, current meds okay) - Anticoagulation Anticoagulation: Hgb 13.4 g/dL (11.2-15.7) 10/22/20 07:07 Hct 39.7 % (36.0-46.0) 10/22/20 07:07 Plt Count 243 10^3/uL (130-400) 10/22/20 07:07 INR 1.1 (0.9-1.1) 10/18/20 00:43 Creatinine 0.6 mg/dL (0.55-1.02) 10/22/20 07:07 DVT Prohphylaxis: Reviewed Medications: Enoxaparin - Opiate Usage Evaluate Pain Scale/Pains Meds: Reviewed Scheduled Bowel Reg ordered if on Opiates?: Yes - Relevant Labs Sodium 142 mmol/L (136-145) 10/22/20 07:07 Potassium 3.2 mmol/L (3.5-5.1) L 10/22/20 07:07 Chloride 106 mmol/L (98-107) 10/22/20 07:07 Magnesium 1.8 mg/dL (1.8-2.4) 10/22/20 07:07 Electrolytes, C-Reactive P, ESR: Intervened (IVF w/K+ in them ordered, will mention to provider/ask about additional supplementation) - DM Control DM Control: Glucose 121 mg/dL (74-106) H 10/22/20 07:07 Insulin Dosing: N/A (BG has been mildly elevated so far this admission.) - Heart Failure/TN Heart Failure/TN: Troponin I < 0.05 ng/mL (<0.06) 10/17/20 22:10 EF%, BRENDEN's, B-Blockers, Diuretics: Reviewed - BP Control BP Control: Blood Pressure 142/79 Blood Pressure 130/84 If elevated: Reviewed (BP has been normal to high most of admission.) - Qtc Review If Elevated: N/A (QTc 425 on admission) - IV to PO Switch IV Medications: Reviewed - Home Meds Home Med List reviewed: Reviewed Relevent Home Meds Not ordered & why?: ascorbic acid, cholecalciferol, ibuprofen, omeprazole, probiotic, psyllium - Current meds Current Medication Order Review: Reviewed - Comments Comments/Follow Ups: Watch BP, K+, labs and for med changes (possible need of additional BM meds). Antibiotic Activity - Pharmacy Antibiotic Review Pharmacy Antibiotic Activity: Reviewed, no change (Ertapenem continues (day 5))
[2020-10-22] MEDS: Normal Saline 50 ML (12:19)
[2020-10-22] MEDS: ACETAMINOPHEN 1,000 MG/100 ML BTL 400 MG IVPB (13:05)
[2020-10-22] MEDS: ERTAPENEM 1 GM in Normal Saline 50 ML IVPB (13:54)
--- NOTE | 2020-10-22 14:39 | PT.INIE ---
Date of service: 10/22/20 Time of Service: 14:39 PT Notes Visit Reasons: ACUTE APPENDICITIS Physical Therapy Inpatient Initial Evaluation Date: 10/22/2020 Referring Doctor: Mariia Fernandes MD PT Orders: PT CONSULT: Exacerbation of chronic condition. Chronic back pain, left rotator cuff tear Precautions: Fall. Standard. Activity as tolerated. Has cochlear implant in place. Patient Profile/Admitting Diagnosis: Jennifer is a 75-year-old female who presented to the ED on 10/17/2020 with sharp cramping abdominal pain associated with nausea but without vomiting. She is found to have acute appendicitis and is status post laparoscopic appendectomy on postoperative day 4. Patient is also diagnosed with essential hypertension, GERD, and hypothyroidism. PMHX: Medical History Esophageal ulcer without bleeding Per 12/17/2009 EGD ([facility] [place] --> resolved with repeat EGD 03/18/2020 Essential hypertension Fibrocystic breast disease (FCBD) GERD (gastroesophageal reflux disease) Continue PPI indefinitely per [facility] [place] [facility] (03/18/2010); h/o esophageal ulcer & hiatal hernia Hiatal hernia Small, per 03/18/2010 EGD ([facility] [place] Hyperlipidemia, unspecified Statin intolerance Hypothyroidism Obesity Osteopenia Otosclerosis Posterior tibial tendon dysfunction (PTTD) of right lower extremity (12/15/15) Sensorineural hearing loss (SNHL) Subfibular impingement of right lower extremity (12/15/15) Traumatic tear of left rotator cuff Tubular adenoma of colon (09/12/17) Vitamin D deficiency Surgical History (Updated 10/18/20 @ 10:43 by Noe Cade MD) Colonoscopy - MAC (09/12/17) Hiatal Hernia History of cochlear implant Right S/P tubal ligation Social History/Home Situation: Lives with in a private home with 3 steps to enter with 1 rail. She is independent with all mobility ADL performance without an assistive device. Has an identical twin sister. Equipment Owned/DME: None Subjective: Continues to report discomfort in the abdominal area with sit to supine and sit to stand movement transitions. Hopes to go home as soon as she is able to do so. Objective: General Observation: Dressing over surgical incision. Bilateral TEDS on. Mental Status: Alert and oriented as to person, place, time, and purpose. Able to pay attention, focus, and respond appropriately. Pain: 3?4/10 in surgical incision during movement transitions ROM: Right Upper Extremity: Shoulder Flexion WFL. Shoulder abduction WFL. Shoulder ER/IR WFL. Elbow flexion WFL. Forearm pronation/supination WFL. Wrist flexion WFL. Opening and closing of hand WFL. Left Upper Extremity: Shoulder Flexion WFL. Shoulder abduction WFL. Shoulder ER/IR WFL. Elbow flexion WFL. Forearm pronation/supination WFL. Wrist flexion WFL. Opening and closing of hand WFL. Right Lower Extremity: Hip flexion WFL. Hip abduction WFL. Hip ER/IR WFL. Knee flexion WFL. Knee extension. Ankle dorsiflexion/eversion WFL. Ankle plantarflexion/inversion WFL. Left Lower Extremity: Hip flexion WFL. Hip abduction WFL. Hip ER/IR WFL. Knee flexion WFL. Knee extension. Ankle dorsiflexion WFL. Ankle plantarflexion WFL. Strength: Right Upper Extremity: Shoulder flexors 4-/5. Shoulder abductors 4-/5. Elbow flexors 4-/5. Elbow extensors 4-/5. Assembly Cleaner strong. Left Upper Extremity: Shoulder flexors 4-/5. Shoulder abductors 4-/5. Elbow flexors 4-/5. Elbow extensors 4-/5. Assembly Cleaner strong. Right Lower Extremity: Hip flexors 4-/5. Hip abductors 4-/5. Knee flexors 4-/5. Knee extensors 4-/5. Ankle dorsiflexors/evertors 4-/5. Ankle plantarflexors/invertors 4-/5. Left Lower Extremity: Hip flexors 4-/5. Hip abductors 4-/5. Knee flexors 4-/5. Knee extensors 4-/5. Ankle dorsiflexors/evertors 4-/5. Ankle plantarflexors/invertors 4-/5. Bed Mobility/Transfers: Supine to sit contact guard assist Sit to stand contact-guard assist Stand to sit contact-guard assist Bed to chair contact-guard assist contact-guard assist Chair to bed Gait: Guided patient through level surface ambulation of 300 feet from a walker with full weightbearing requiring only standby assist with slowed robson, through heel toe gait pattern. Balance: Static Sitting: Normal normal Dynamic Sitting: Static Standing: Good Dynamic Standing: Fair Special Tests: Mobility Limitations Standardized Measure [facility] AM-PAC 6 clicks Basic Mobility Inpatient Short Form: Raw Score: 17 CMS Score: 50% deficit Informed Consent/Education: Patient was instructed in purpose of PT consult and plan of care. Agreeable to proceed with established PT POC to achieve personal goals. Assessment: Jennifer demonstrates functional mobility decline now requiring the use of a front wheeled walker for all mobility ADL performance. Will reassess in the next session to see if patient is able to safely navigate level surfaces without an assistive device and will discontinue from services when appropriate. Patient presents with clinical signs and symptoms consistent with current/admitting diagnoses that have resulted to mobility limitations, gait instability, generalized weakness, and impairment of motor control as demonstrated by the following impairment level findings: 1. Decreased strength to BLE major muscle groups 2. Impaired standing balance 3. Impaired activity tolerance Impairments are contributing to the following functional limitations: 1. Dependent bed mobility skills 2. Increased dependence with transfers 3. Inability to safely ambulate without assistive device and physical assistance 4. Increase completion time for mobility ADL performance 5. Increased fall risk 6. Inability to negotiate steps alone safely Patient is assessed as a 01254 moderate complexity based on the following: History: 75 [id number] with past medical history as indicated above Examination: Demonstrable impairment in strength, balance, and mobility level with underlying impairments and functional limitations as exhibited above as well as deficit score of 50% utilizing the [facility] Mobility Inpatient Short Form Presentation: Evolving Decision Makin moderate complexity Goals: Goals X1 week 1. Supine-Sit independent 2. Sit-Supine independent 3. Sit-Stand independent 4. Stand-Sit independent 5. Bed-Chair independent 6. Chair-Bed independent 7. Independent gait on level surface with use of no assistive device for at least 1000 feet without report of pain nor dyspnea 8. Independent stair negotiation while holding onto 1 rails for at least 5 steps without report of pain nor dyspnea 9. Independent with home exercise program 10. Good static and dynamic standing balance/tolerance Plan of Care/Treatment Plan: 1-2x/day, 7 days/week x 1 week. Plan of care has been reviewed with the [employer] providing the service under Physical Therapy direction. Initiate Physical Therapy intervention for pain management as needed, strengthening, bed mobility, transfers, gait, stairs, balance training, and use of assistive device. DISCHARGE RECOMMENDATIONS: Home when medically cleared by hospitalist. May benefit from short term home health PT services in order to ensure safety of discharge destination. TREATMENT CODE/TIME: 03701 x 20 minutes, [id number] x 21 minutes beginning at 2:39 PM. Thank you for the opportunity to participate in the care of this patient. Karen Peralta PT, DPT, CLT [facility] [place], [place]
[2020-10-22] MEDS: Ketorolac 15 MG/ML VIAL IVP (14:40)
[2020-10-22] MEDS: Docusate Sodium 100 MG CAP PO (14:40)
[2020-10-22] MEDS: Mineral Oil-Enema 133 ML BTL PR (15:50)
--- NOTE | 2020-10-22 16:43 | CMPROGNOTE_ITS ---
- If Service Date Differs Date of service: 10/22/20 Time of Service: 16:43 Care Management Progress Note S/O: Jennifer was sitting up on the side of her bed when CM met with her. She reported that she has not had a BM for four days, so she will be having an enema today. She had a CT scan today which showed a lot of air and stool, but no obstruction. Per MD, she will be cleared to return home once her pain/discomfort is under control, and she has a BM. CM will continue to follow. A: Jennifer is a 75 year old female admitted to [facility] on 10/18/2020 for acute appendicitis. P: Anticipate Jennifer will be discharged home when medically cleared by provider. She will follow up with her PCP, surgeon, and discharge plan of care as directed. She will be driven home via private vehicle by family when ready. CM will continue to support Jennifer and discharge planning needs.
[2020-10-23] MEDS: Ketorolac 15 MG/ML VIAL IVP ×2 (02:36→09:00)
[2020-10-23] MEDS: Normal Saline Flush 10 ML SYR IVP ×2 (02:36→04:08)
[2020-10-23] MEDS: POTASSIUM CHLORIDE/D5-0.45NACL 1,000 ML 80 MEQ IV (02:37)
[2020-10-23 02:39] VITALS: TEMP 37.4
[2020-10-23] MEDS: Metoclopramide 10 MG/2 ML VIAL IVP (04:07)
[2020-10-23] MEDS: Acetaminophen 500 MG TAB PO ×3 (04:07→16:22)
[2020-10-23] MEDS: Levothyroxine 50 MCG TAB PO (06:34)
[2020-10-23 07:51] VITALS: BP 118/79; PULSE 65; RESP 20; TEMP 36.5; O2SAT 96
[2020-10-23] MEDS: amLODIPine 5 MG TAB PO (09:00)
[2020-10-23] MEDS: Enoxaparin 40 MG/0.4 ML SYR SC (09:00)
[2020-10-23] MEDS: Pantoprazole 40 MG VIAL IVP (09:00)
--- NOTE | 2020-10-23 09:23 | W.PM.PROGNOT ---
Date of Service Date of service: 10/23/20 Time of Service: 09:23 Assessment and Plan Assessment and plan (1) Acute appendicitis: Status: Acute Assessment and plan: 75-year-old female POD#5 s/p laparoscopic appendectomy. CT scan revealed lots of air and stool 2 Enemas given. Patient had good results with that. Abdominal pain now with movement only Patient wants to go home Recheck CBC. If normal then will D/C antibiotics (today is day 6) D/C IV fluids Strongly encouraged ambulation and OOB activities Continue with use of incentive spirometer May shower If able to get up safely by herlself and her pain is controlled with tylenol and ibuprofen then will D/C to home after lunch Qualifiers: Acute appendicitis type: with localized peritonitis Appendicitis gangrene presence: without gangrene Appendicitis perforation presence: without perforation Appendicitis abscess presence: without abscess Qualified Code(s): K35.30 - Acute appendicitis with localized peritonitis, without perforation or gangrene (2) Cochlear implant in place: Status: Chronic (3) Sensorineural hearing loss (SNHL): Status: Chronic Subjective Subjective Interval history since last seen: Mrs Esposito is doing OK. She had a large hard BM yesterday. She is now having loose stools. No N/V. Minimal abdominal pain at this time. Using Tylenol and Toradol only. Afebrile. Patient wants to go home Exam Const General: cooperative, comfortable and no acute distress Orientation: alert and oriented x3 HENMT Head: normocephalic and atraumatic Resp Effort & Inspection: normal respiratory effort GI Palpation: soft, no hepatosplenomegaly and nontender Auscultation: normal bowel sounds Objective Last Vital Signs Temp 97.7 F 10/23/20 07:51 Pulse 65 10/23/20 07:51 Resp 20 10/23/20 07:51 BP 118/79 10/23/20 07:51 Pulse Ox 96 10/23/20 07:51
--- NOTE | 2020-10-23 09:29 | DSE_ITS ---
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 Esposito is a 75 year old female who underwent Laparoscopic Appendectomy on 10/18/20. Her appendix was not ruptured. Patients hospital course was complicated by constipation. ABDO XRay on POD#2 showed dilated large bowel and small bowel. CT scan on POD#3 showed air and stool throughout the colon. No sign of abscess. Patient was given 2 enemas and had good results. On POD #4 patient was feeling better. She was hungry, was getting out of bed and was walking. WBC count was almost 20 thousand on admission. It was almost normal on discharge. She had 6 days of antibiotics. Patient will not be sent home on antibiotics Home Meds and New Rx's Prescriptions: Continued ibuprofen [Advil] 200 mg tablet 400 mg PO QID PRNRF: 0 amlodipine 5 mg tablet 5 mg PO DAILY Qty: 90 RF: 3 omeprazole 40 mg capsule,delayed release(DR/EC) 40 mg PO DAILY Qty: 90 RF: 2 Metamucil (sugar) Powder 1 tbsp PO DAILY PRNRF: 0 levothyroxine 50 mcg tablet 50 mcg PO DAILY Qty: 90 RF: 0 Probiotic 1 EACH capsule 1 ea PO PRN RF: 0 Varicella-Zoster Ge/As01b/Pf [Shingrix Vial Kit] 50 MCG INJ 50 mcg IM ONCE Qty: 1 RF: 1 cholecalciferol (vitamin D3) 1,000 UNIT capsule 1,000 unit PO DAILY RF: 0 Emergen-C 1,000 mg Powder Effervescent In Packet 1 packet PO DAILY RF: 0 Discharge Instructions Additional Instructions: Activity at Home after surgery: 1. Make sure you walk outside at least 4 times per day 2. You should be able to climb a flight of stairs 3. No driving while in pain or taking pain medications 4. No strenuous activity or heavy lifting for 2 weeks (laparoscopic surgery). No lifting over 10#s Diet, Nutrition, & wound healin. Avoid alcohol until after you are recovered from your surgery 2. Make sure to eat plenty of lean protein (meat, fish, eggs, cottage cheese, beans) 3. Eat a variety of fruits and vegetables. Eat plenty of high fiber foods to avoid constipation. 4. Drink plenty of liquids to stay hydrated and avoid constipation 5. F/u in surgery clinic w/ Dr. Almaguer next 10/30 1:30pm. Pain Medications: 1. Tylenol 650mg every 6 hours as needed and Ibuprofen 600 mg every 6 hours as needed. You may alternate between the 2 medications every 3 hours 2. If a narcotic has been prescribed take as directed only for breakthrough pain For Constipation: 1. Take Milk of Magnesia or MiraLax as needed for constipation Other: 1. You may shower daily. Do not scrub the incisions 2. Do not soak the incisions for 1 week 3. You may alternate ice and heat as needed for pain and swelling 4. Home PT ordered Wound Care: 1. Keep the incisions clean and dry Please call our office if you develop: 1. Fevers >101.5 2. Nausea or Vomiting 3. Worsening pain 4. Redness and thick discharge from the wounds If after hours please call the Hospital at and ask to speak to the on-call surgeon Referrals: Rut Almaguer DO [OSTEOPATHIC DOCTOR] - 10/30/20 1:30 pm Activity:: See above Equipment/Supplies:: No Equipment Needed Diet:: As Tolerated Discharge Orders Discharge Orders: Discharge Order (Routine); Ordered 10/23/20 Ordered By: Rut Almaguer DS: Summary Time Spent with Patient providing and/or coordinating discharge services: Less than 30 minutes Status at Discharge Functional status at discharge: independent ambulation Overall status at discharge: patient is progressing back to baseline Mental Status: mental status grossly normal Speech and Movement: speech and movement normal Mood: congruent mood Affect: normal affect Exam Const General: cooperative, comfortable and no acute distress Orientation: alert and oriented x3 HENMT Head: normocephalic and atraumatic Resp Effort & Inspection: normal respiratory effort Auscultation: clear to auscultation bilaterally Cardio Rate: regular rate Rhythm: regular rhythm GI Inspection: incision (c/d/i) Palpation: soft and no hepatosplenomegaly Auscultation: normal bowel sounds Psych Mental Status: mental status grossly normal Speech and Movement: speech and movement normal Mood: congruent mood Affect: normal affect DS: Data Vitals/I&O Vitals and I&O: Vital Signs Temperature 97.7 F 10/23/20 07:51 Temperature Source Temporal Artery Scan 10/23/20 07:51 Pulse 65 10/23/20 07:51 Pulse Rhythm Regular 10/23/20 02:50 Pulse 94 H 10/18/20 01:10 Respiratory Rate 20 10/23/20 07:51 Respiratory Effort Non-Labored 10/23/20 02:50 Respiratory Depth Normal 10/23/20 02:50 Respiratory Pattern Normal 10/23/20 02:50 Blood Pressure 118/79 10/23/20 07:51 Blood Pressure Mean 95 10/18/20 01:01 Pulse Oximetry 96 10/23/20 07:51 Respiratory End-tidal CO2 31 10/18/20 14:13 Oxygen Delivery Method Room Air 10/23/20 07:51 Oxygen Flow Rate 0 10/23/20 07:51 Pain Level 1 10/23/20 09:00 Comment 10/22/20 09:46 Intake & Output 10/22/20 10/22/20 10/23/20 11:59 23:59 11:59 Intake Total 594 / 1834 1240 / 1834 660.667 / 660.667 Output Total 1455 / 3255 1800 / 3255 1300 / 1300 Balance -861 / -1421 -560 / -1421 -639.333 / -639.333 Intake: IV 594 / 1594 1000 / 1594 510.667 / 510.667 Oral 240 / 240 150 / 150 Output: Urine 1455 / 3255 1800 / 3255 800 / 800 Stool 500 / 500 Other: Urine Color Pale Yellow Yellow Light Yaritza Urine Appearance Clear Clear Cloudy Urine Odor None None Normal Comment Urine was mixed with stool Stool Size Moderate Small Stool Characteristics Hard Liquid Voiding Methods Bedside Commode Bedside Commode Bedside Commode Data Completed and Pending Labs on day of discharge: Labs from last 24 hours 10/23/20 10/23/20 08:30 08:30 WBC Pending RBC Pending Hgb Pending Hct Pending MCV Pending MCH Pending MCHC Pending RDW Pending Plt Count Pending MPV Pending Immature Gran % Pending Neutrophils % Pending Lymphocytes % Pending Monocytes % Pending Eosinophils % Pending Basophils % Pending Absolute Neutrophils Pending Absolute Lymphocytes Pending Absolute Monocytes Pending Absolute Eosinophils Pending Absolute Basophils Pending Sodium Pending Potassium Pending Chloride Pending Carbon Dioxide Pending Anion Gap Pending BUN Pending Creatinine Pending Estimated GFR/1.73 m2 Pending Glucose Pending Calcium Pending PFSH Medical History Esophageal ulcer without bleeding Per 12/17/2009 EGD ([facility] [place]) --> resolved with repeat EGD 03/18/2020 Essential hypertension Fibrocystic breast disease (FCBD) GERD (gastroesophageal reflux disease) Continue PPI indefinitely per [facility] [place] [facility] (03/18/2010); h/o esophageal ulcer & hiatal hernia Hiatal hernia Small, per 03/18/2010 EGD ([facility] [place]) Hyperlipidemia, unspecified Statin intolerance Hypothyroidism Obesity Osteopenia Otosclerosis Posterior tibial tendon dysfunction (PTTD) of right lower extremity (12/15/15) Sensorineural hearing loss (SNHL) Subfibular impingement of right lower extremity (12/15/15) Traumatic tear of left rotator cuff Tubular adenoma of colon (09/12/17) Vitamin D deficiency Surgical History Colonoscopy - MAC (09/12/17) Hiatal Hernia History of cochlear implant Right S/P tubal ligation Family History Mother No problems noted. Father COPD (chronic obstructive pulmonary disease) Sister Essential hypertension Stroke Maternal Grandmother Essential hypertension Stroke Son Alcohol abuse Social History Smoking/Tobacco Use Status: Former Tobacco Use Quit Date: 05/23/89 Smoking risk assessment performed?: Yes Alcohol Intake: current Alcohol Intake frequency: a few times a week Drug use: Never Substance use type: does not use Adopted: No Caregiver/Support person: No Household members: spouse Housing: house Number of Children: 2 number of grandchildren: 1 Pets and animals: Yes Pets and animals: cat(s) Do you think of yourself as: straight/heterosexual Current gender identity: female What type of physical activity do you participate in: none Seatbelt use: always Helmet use: Yes Water heater temp set <120 deg: Yes Working smoke detector in home: Yes Fire extinguisher in home: Yes Carbon monox detector in home: Yes Firearms in home: Yes Firearms unloaded and locked: Yes In current or past relationships, have you been: made to feel afraid Do you feel safe at home: Yes Do you feel safe in your relationship?: Yes Documented by User: Rut Almaguer DO /03/ 15:45 Discharge Plan Disposition Patient Disposition: HOME Condition: Serious Discharge Details Reason For Visit: ACUTE APPENDICITIS Admit Date/Time: 10/18/21 00:34 Admit Provider: Noe Cade Attending Provider: Noe Cade Primary Care Provider: Sandra Abraham Hospital Course Hospital Course: Mrs. Esposito is a 75 year old female who underwent Laparoscopic Appendectomy on 05//. Her appendix was not ruptured. Patients hospital course was complicated by constipation. ABDO XRay on POD#2 showed dilated large bowel and small bowel. CT scan on POD#3 showed air and stool throughout the colon. No sign of abscess. Patient was given 2 enemas and had good results. On POD #4 patient was feeling better. She was hungry, was getting out of bed and was walking. WBC count was almost 20 thousand on admission. It was almost normal on discharge. She had 6 days of antibiotics. Patient will not be sent home on antibiotics Home Meds and New Rx's Prescriptions: Continued ibuprofen [Advil] 200 mg tablet 400 mg PO QID PRNRF: 0 amlodipine 5 mg tablet 5 mg PO DAILY Qty: 90 RF: 3 omeprazole 40 mg capsule,delayed release(DR/EC) 40 mg PO DAILY Qty: 90 RF: 2 Metamucil (sugar) Powder 1 tbsp PO DAILY PRNRF: 0 levothyroxine 50 mcg tablet 50 mcg PO DAILY Qty: 90 RF: 0 Probiotic 1 EACH capsule 1 ea PO PRN RF: 0 Varicella-Zoster Ge/As01b/Pf [Shingrix Vial Kit] 50 MCG INJ 50 mcg IM ONCE Qty: 1 RF: 1 cholecalciferol (vitamin D3) 1,000 UNIT capsule 1,000 unit PO DAILY RF: 0 Emergen-C 1,000 mg Powder Effervescent In Packet 1 packet PO DAILY RF: 0 Discharge Instructions Additional Instructions: Activity at Home after surgery: 1. Make sure you walk outside at least 4 times per day 2. You should be able to climb a flight of stairs 3. No driving while in pain or taking pain medications 4. No strenuous activity or heavy lifting for 2 weeks (laparoscopic surgery). No lifting over 10#s Diet, Nutrition, & wound healin. Avoid alcohol until after you are recovered from your surgery 2. Make sure to eat plenty of lean protein (meat, fish, eggs, cottage cheese, beans) 3. Eat a variety of fruits and vegetables. Eat plenty of high fiber foods to avoid constipation. 4. Drink plenty of liquids to stay hydrated and avoid constipation 5. F/u in surgery clinic w/ Dr. Almaguer next 10/30 1:30pm. Pain Medications: 1. Tylenol 650mg every 6 hours as needed and Ibuprofen 600 mg every 6 hours as needed. You may alternate between the 2 medications every 3 hours 2. If a narcotic has been prescribed take as directed only for lucero kthrough pain For Constipation: 1. Take Milk of Magnesia or MiraLax as needed for constipation Other: 1. You may shower daily. Do not scrub the incisions 2. Do not soak the incisions for 1 week 3. You may alternate ice and heat as needed for pain and swelling 4. Home PT ordered Wound Care: 1. Keep the incisions clean and dry Please call our office if you develop: 1. Fevers >101.5 2. Nausea or Vomiting 3. Worsening pain 4. Redness and thick discharge from the wounds If after hours please call the Hospital at and ask to speak to the on-call surgeon Referrals: Rut Almaguer, [OSTEOPATHIC DOCTOR] - 10/30/20 1:30 pm Activity:: See above Equipment/Supplies:: No Equipment Needed Diet:: As Tolerated Discharge Orders Discharge Orders: Discharge Order (Routine); Ordered 10/23/20 Ordered By: Rut Almaguer [facility] [place] Medical History Esophageal ulcer without bleeding Per 12/17/2009 EGD ([facility] [place]) --> resolved with repeat EGD 03/18/2020 Essential hypertension Fibrocystic breast disease (FCBD) GERD (gastroesophageal reflux disease) Continue PPI indefinitely per [facility] [place] [facility] (03/18/2010); h/o esophageal ulcer & hiatal hernia Hiatal hernia Small, per 03/18/2010 EGD ([facility] [place]) Hyperlipidemia, unspecified Statin intolerance Hypothyroidism Obesity Osteopenia Otosclerosis Posterior tibial tendon dysfunction (PTTD) of right lower extremity (12/15/15) Sensorineural hearing loss (SNHL) Subfibular impingement of right lower extremity (12/15/15) Traumatic tear of left rotator cuff Tubular adenoma of colon (09/12/17) Vitamin D deficiency Surgical History Colonoscopy - MAC (09/12/17) Hiatal Hernia History of cochlear implant Right S/P tubal ligation Family History Mother No problems noted. Father COPD (chronic obstructive pulmonary disease) Sister Essential hypertension Stroke Maternal Grandmother Essential hypertension Stroke Son Alcohol abuse Social History Smoking/Tobacco Use Status: Former Tobacco Use Quit Date: 05/23/89 Smoking risk assessment performed?: Yes Alcohol Intake: current Alcohol Intake frequency: a few times a week Drug use: Never Substance use type: does not use Adopted: No Caregiver/Support person: No Household members: spouse Housing: house Number of Children: 2 number of grandchildren: 1 Pets and animals: Yes Pets and animals: cat(s) Do you think of yourself as: straight/heterosexual Current gender identity: female What type of physical activity do you participate in: none Seatbelt use: always Helmet use: Yes Water heater temp set <120 deg: Yes Working smoke detector in home: Yes Fire extinguisher in home: Yes Carbon monox detector in home: Yes Firearms in home: Yes Firearms unloaded and locked: Yes In current or past relationships, have you been: made to feel afraid Do you feel safe at home: Yes Do you feel safe in your relationship?: Yes
[2020-10-23 09:56] LABS: HCT 37.7 % (36.0-46.0); HGB 12.6 g/dL (11.2-15.7); MCH 30.9 pg (27.0-33.0); MCHC 33.4 % (32.0-36.0); MCV 92.4 fL (80-95); MPV 9.6 fL (8.0-11.0); Nucleated RBC 0 %; Platelet Count 257 10^3/uL (130-400); RBC 4.08 10^6/uL (3.93-5.22); RDW 13.2 % (11.7-14.6); WBC 12.91 10^3/uL (4.4-10.8)
[2020-10-23 10:07] LABS: Anion Gap 10.2 mmol/L (3-11); BUN 4 mg/dL (7-18); CO2 24.8 mmol/L (21.0-32.0); CREATININE 0.6 mg/dL (0.55-1.02); Calcium 8.6 mg/dL (8.5-10.1); Chloride 107 mmol/L (98-107); Glucose 121 mg/dL (74-106); Potassium 3.2 mmol/L (3.5-5.1); Sodium 142 mmol/L (136-145)
[2020-10-23 10:12] LABS: Absolute Eosinophil Count 0.13 10^3/uL (0.0-0.7); Absolute Lymphocyte Count 3.23 10^3/uL (1.2-3.4); Absolute Monocyte Count 0.65 10^3/uL (0.1-0.8); Absolute Neutrophil Count 8.91 10^3/uL (1.2-6.7); Atypical Lymphocytes % 3
[2020-10-23 10:13] LABS: Diff Comment Manual Differential; RBC Morphology Normal
--- NOTE | 2020-10-23 12:02 | PDOC.CMDIS ---
- If Service Date Differs Date of service: 10/23/20 Time of Service: 12:02 LACE Index Scoring Tool - Questions: Length of Stay (in days): 4 - 6 Acuity (Admit via E.D.?): Yes E.D. Visits: 1 - Answers: Total Score: 8 Risk of Readmission: Low Risk Care Management Discharge Reason for Hospitalization: Acute appendicitis. Discharge Plan: Jennifer will return home with no additional services today. Her will drive her home via private vehicle. Her twin sister, Amy, will bring her some clothes to return home in. She will follow up with her PCP and discharge plan of care. She is happy to be going home. Patient/Family Education Needs: Review discharge instructions regarding activity levels and medications, discussion of self care needs including ask me three.
--- NOTE | 2020-10-23 14:51 | PT.INTREAT ---
Date of service: 10/23/20 Time of Service: 14:20 PT Notes Visit Reasons: ACUTE APPENDICITIS Inpatient Physical Therapy Treatment Note [facility] Date: 10/23/2020 PRECAUTIONS: Fall SUBJECTIVE: Jennifer is pleasant and agreeable to PT. She states that she hopes to discharge to home today. She would like to continue to use the FWW for a few more days, until she feels a little stronger. She reports that she has one at home, and that her home is free of tripping hazards. OBJECTIVE: PAIN: No c/o pain BED MOBILITY/TRANSFERS Sit-stand: I Stand-sit: I GAIT Assistive Device: FWW Weight bearing: Full Assist: S Distance: 600' Deviation: Does not feel strong enough to ambulate without FWW STAIRS: Up/down 3x4 and 2x6 using B rails and a step-over pattern with independently ASSESSMENT: Patient tolerated session well without complaint. She reports that she does not feel that she is ready to ambulate without the FWW, and is agreeable to using FWW at home until she feels stronger. PLAN: Patient to discharge to home later today, with PT follow up. TREATMENT CODE/TIME: 25 minutes; 48090 x2 (14:20)
--- NOTE | 2020-10-23 15:45 | PDOC.HHF2F ---
Home Health Certification Home Health Certification: 1. Encounter Date and Reason I certify that Jennifer Esposito was seen by Rut Almaguer on 10/23/20 and that I had a [id number] encounter with this patient that meets the physician face to face encounter requirements. 2. Clinical Findings Supporting Skilled Need and Homebound Status I certify that home health services are medically necessary, include either intermittent senior care and/or physical/speech therapy, and that this patient is homebound in that absences from the home require considerable and taxing effort and are infrequent or of short duration, or are attributable to the need to receive medical care. [X] (a) Attached documentation from encounter provides clinical findings supporting skilled need and homebound status (including what assistance patient requires to leave the home). The encounter with the patient was in whole, or in part, for the following medical condition, which is the primary reason for home health care: ACUTE APPENDICITIS Long Term: Physical Therapy:strength and balance. Pt feels unsteady on her feet. was given a walker Speech Therapy: Homebound: 3. Certification and Authentication I certify that I composed the above information based on my clinical judgement relating to this patient's medical condition and, if applicable, clinical findings communicated to me by the NPP or inpatient physician who performed the Home Health Referral. All further orders will be obtained through (Community Based Physician - PCP)
--- NOTE | 2020-10-23 17:00 | PT.INDS ---
Date of service: 10/31/20 PT Notes Visit Reasons: ACUTE APPENDICITIS Physical Therapy Inpatient Discharge Summary Date: 10/23/2020 Dates of Service: 10/22/2020 through 10/23/2020 This is a clinical summary of care provided for the duration of dates listed above. No charge was made in the completion of this documentation. Referring Doctor: Mariia Fernandes MD PT Orders: PT CONSULT: Exacerbation of chronic condition. Chronic back pain, left rotator cuff tear Precautions: Fall. Standard. Activity as tolerated. Has cochlear implant in place. Patient Profile/Admitting Diagnosis: Jennifer is a 75-year-old female who presented to the ED on 10/17/2020 with sharp cramping abdominal pain associated with nausea but without vomiting. She is found to have acute appendicitis and is status post laparoscopic appendectomy on postoperative day 4. Patient is also diagnosed with essential hypertension, GERD, and hypothyroidism. PMHX: Medical History Esophageal ulcer without bleeding Per 12/17/2009 EGD ([facility] [place]) --> resolved with repeat EGD 03/18/2020 Essential hypertension Fibrocystic breast disease (FCBD) GERD (gastroesophageal reflux disease) Continue PPI indefinitely per [facility] [facility] (03/18/2010); h/o esophageal ulcer & hiatal hernia Hiatal hernia Small, per 03/18/2010 EGD ([facility] [place]) Hyperlipidemia, unspecified Statin intolerance Hypothyroidism Obesity Osteopenia Otosclerosis Posterior tibial tendon dysfunction (PTTD) of right lower extremity (12/15/15) Sensorineural hearing loss (SNHL) Subfibular impingement of right lower extremity (12/15/15) Traumatic tear of left rotator cuff Tubular adenoma of colon (09/12/17) Vitamin D deficiency Surgical History (Updated 10/18/20 @ 10:43 by Noe Cade MD) Colonoscopy - MAC (09/12/17) Hiatal Hernia History of cochlear implant Right S/P tubal ligation Social History/Home Situation: Lives with in a private home with 3 steps to enter with 1 rail. She is independent with all mobility ADL performance without an assistive device. Has an identical twin sister. Equipment Owned/DME: None Subjective: NT. See most recent DEPUTY SHERIFF K9 HANDLER notes. Objective: General Observation: NT. See most recent DEPUTY SHERIFF K9 HANDLER notes. Mental Status: NT. See most recent DEPUTY SHERIFF K9 HANDLER notes. Pain: NT. See most recent DEPUTY SHERIFF K9 HANDLER notes. ROM: Right Upper Extremity: Shoulder Flexion WFL. Shoulder abduction WFL. Shoulder ER/IR WFL. Elbow flexion WFL. Forearm pronation/supination WFL. Wrist flexion WFL. Opening and closing of hand WFL. Left Upper Extremity: Shoulder Flexion WFL. Shoulder abduction WFL. Shoulder ER/IR WFL. Elbow flexion WFL. Forearm pronation/supination WFL. Wrist flexion WFL. Opening and closing of hand WFL. Right Lower Extremity: Hip flexion WFL. Hip abduction WFL. Hip ER/IR WFL. Knee flexion WFL. Knee extension. Ankle dorsiflexion/eversion WFL. Ankle plantarflexion/inversion WFL. Left Lower Extremity: Hip flexion WFL. Hip abduction WFL. Hip ER/IR WFL. Knee flexion WFL. Knee extension. Ankle dorsiflexion WFL. Ankle plantarflexion WFL. Strength: Right Upper Extremity: Shoulder flexors 4-/5. Shoulder abductors 4-/5. Elbow flexors 4-/5. Elbow extensors 4-/5. Shirt Ironer Supervisor strong. Left Upper Extremity: Shoulder flexors 4-/5. Shoulder abductors 4-/5. Elbow flexors 4-/5. Elbow extensors 4-/5. Shirt Ironer Supervisor strong. Right Lower Extremity: Hip flexors 4-/5. Hip abductors 4-/5. Knee flexors 4-/5. Knee extensors 4-/5. Ankle dorsiflexors/evertors 4-/5. Ankle plantarflexors/invertors 4-/5. Left Lower Extremity: Hip flexors 4-/5. Hip abductors 4-/5. Knee flexors 4-/5. Knee extensors 4-/5. Ankle dorsiflexors/evertors 4-/5. Ankle plantarflexors/invertors 4-/5. Bed Mobility/Transfers: Supine to sit independent Sit to stand independent Stand to sit independent Bed to chair independent Chair to bed independent Gait: Guided patient through level surface ambulation of 600 feet with a walker with full weight bearing requiring only supervision with slowed robson, swing through heel toe gait pattern. Stairs: Up and Down three 4 inch steps into 6 inch steps while holding onto bilateral rails with step over step pattern independently. Balance: Static Sitting: Normal Dynamic Sitting: Normal Static Standing: Good Dynamic Standing: Fair Assessment: Jennifer demonstrates functional mobility decline now requiring the use of a front wheeled walker for all mobility ADL performance. Will reassess in the next session to see if patient is able to safely navigate level surfaces without an assistive device and will discontinue from services when appropriate. Patient presents with clinical signs and symptoms consistent with current/admitting diagnoses that have resulted to mobility limitations, gait instability, generalized weakness, and impairment of motor control as demonstrated by the following impairment level findings: 1. Decreased strength to BLE major muscle groups 2. Impaired standing balance Impairments are contributing to the following functional limitations: 1. Inability to safely ambulate without assistive device 2. Increase completion time for mobility ADL performance 3. Increased fall risk Goals: Goals X1 week 1. Supine-Sit independent MET 2. Sit-Supine independent MET 3. Sit-Stand independent MET 4. Stand-Sit independent MET 5. Bed-Chair independent MET 6. Chair-Bed independent MET 7. Independent gait on level surface with use of no assistive device for at least 1000 feet without report of pain nor dyspnea NOT MET 8. Independent stair negotiation while holding onto 1 rails for at least 5 steps without report of pain nor dyspnea NOT MET 9. Independent with home exercise program NOT MET 10. Good static and dynamic standing balance/tolerance NOT MET DISCHARGE RECOMMENDATIONS: Home when medically cleared by hospitalist. May benefit from short term home health PT services in order to ensure safety of discharge destination. TREATMENT CODE/TIME: NC Thank you for the opportunity to participate in the care of this patient. Kaern Peralta PT, DPT, CLT [facility] [place], [place]
== END 2020-10-23 16:53 | disposition home or self-care (01) | DRG 343 ==
LOC: ER 10-18 00:09 → MS 10-18 01:31
PROVIDERS: Surgery; Admitting Provider Surgery; Emergency Provider Physician Assistant; PCP Nurse Practitioner Family; Visit Provider Surgery
PROC: 0DTJ4ZZ Resection of Appendix, Percutaneous Endoscopic Approach (ICD-10-PCS; CPT 44970; principal; 2020-10-18 10:40)
DX: K35.30 Acute appendicitis with localized peritonitis, without perforation or gangrene (principal); K21.9 Gastro-esophageal reflux disease without esophagitis; I10 Essential (primary) hypertension; E03.9 Hypothyroidism, unspecified; E78.5 Hyperlipidemia, unspecified; E66.9 Obesity, unspecified; E55.9 Vitamin D deficiency, unspecified; H80 Otosclerosis; K59.00 Constipation, unspecified
CPT/HCPCS: 44970; 36410; 36415; 80048; 80053; 83690; 87040; 87635; 93005; 96361; 96365; 96375; 96376; 97162; 97530; 99222; 99285; J1650; 71045; 71046; 74018; 74177; 81003; 81015; 83605; 83735; 84484; 85025; 85610; 85730; 88304; 93010; J0131; J0690; J1100; J1335; J1885; J2001; J2270; J2405; J2704; J2765; J3010; J3480; J3490

== ENCOUNTER → 2020-10-30 13:20 | Outpatient (BNVA) | payer MEDICARE, SELFPAY | PROVIDERS: PCP Nurse Practitioner Family; Referring Provider Nurse Practitioner Family; Visit Provider Surgery | DX: Z48.815 Encounter for surgical aftercare following surgery on the digestive system (principal); Z90.49 Acquired absence of other specified parts of digestive tract; K52.1 Toxic gastroenteritis and colitis; T36.95XA Adverse effect of unspecified systemic antibiotic, initial encounter; R21 Rash and other nonspecific skin eruption ==

== ENCOUNTER 2020-11-03 08:14 | Outpatient (REF) | payer MEDICARE, SELFPAY ==
[2020-11-03 11:02] LABS: C Diff PCR Negative (Negative)
== END 2020-11-03 08:15 | disposition home or self-care (01) ==
LOC: LBN 08:14
PROVIDERS: PCP Nurse Practitioner Family; Visit Provider Surgery
DX: K52.1 Toxic gastroenteritis and colitis (principal); T36.95XA Adverse effect of unspecified systemic antibiotic, initial encounter
CPT/HCPCS: 87493

== ENCOUNTER → 2020-11-13 13:18 | Outpatient (BNVA) | payer MEDICARE, SELFPAY | PROVIDERS: PCP Nurse Practitioner Family; Referring Provider Nurse Practitioner Family; Visit Provider Surgery | DX: Z48.815 Encounter for surgical aftercare following surgery on the digestive system (principal); K52.1 Toxic gastroenteritis and colitis; T36.95XA Adverse effect of unspecified systemic antibiotic, initial encounter; Z90.49 Acquired absence of other specified parts of digestive tract ==

== ENCOUNTER 2020-11-14 09:32 | Outpatient (CLI) | payer MEDICARE, SELFPAY ==
[2020-11-14 13:34] LABS: TSH (W/Ref FT4) 2.53 uIU/mL (0.36-3.74)
== END 2020-11-14 09:33 | disposition home or self-care (01) ==
LOC: LBO 09:34
PROVIDERS: PCP Nurse Practitioner Family; Visit Provider Nurse Practitioner Family
DX: E03.9 Hypothyroidism, unspecified (principal)
CPT/HCPCS: 36415; 84443

== ENCOUNTER 2021-02-26 02:27 | Outpatient (CLI) | payer MEDICARE, SELFPAY ==
--- NOTE | 2021-02-26 07:15 | DI.RAD_ITS ---
Exam(s) XR LUMBAR SPINE COMPLETE EXAM: XR LUMBAR SPINE COMPLETE CLINICAL HISTORY: New back pain r/o compr fx; compare to 2019 xr,osteopenia,m54.50,m85.80,m. TECHNIQUE: 2D digital imaging was performed of the lumbar spine. Five images were obtained. AP, la teral, right oblique, left oblique and L5-S1 spot views were obtained. COMPARISON: CR XR lumbar spine complete from 09/20/[address] ABDOMEN PELVIS W from 10/22/[address] ABDOMEN PELVIS W from 10/22/2020 FINDINGS: There are 5 lumbar type vertebral bodies. There is no spondylolysis. There is grade 1 pseudo spondy lolisthesis of L4 on L5 which is stable. There is disc space narrowing and a vacuum disc again seen at L5-S1. Endplate osteophytes are seen throughout the lumbar spine with sparing of the L3-L4 level. Degenerative facet arthropathy is seen from L3-L4 through L5-S1. The bones are osteopenic. No acu te fracture or subluxation. IMPRESSION: Stable degenerative changes in the lumbar spine since 10/22/2020. DATA REPOSITORY: RADIATION DOSE DELIVERED:
== END 2021-02-26 02:47 ==
PROVIDERS: PCP Nurse Practitioner Family; Visit Provider Nurse Practitioner Adult Health
DX: M47.816 Spondylosis without myelopathy or radiculopathy, lumbar region (principal); M54.50 Low back pain, unspecified; M85.88 Other specified disorders of bone density and structure, other site
CPT/HCPCS: 72110

== ENCOUNTER 2021-03-27 16:47 | Outpatient (REF) | payer MEDICARE, SELFPAY ==
[2021-03-29 01:41] LABS: COVID-19 RT-PCR UVMMC Result Negative (Negative)
== END 2021-03-27 16:48 | disposition home or self-care (01) ==
LOC: LBN 16:47
PROVIDERS: PCP Nurse Practitioner Family; Visit Provider Nurse Practitioner Family
DX: Z20.822 Contact with and (suspected) exposure to COVID-19 (principal)
CPT/HCPCS: U0003; U0005

== ENCOUNTER 2021-04-21 05:43 | Outpatient (CLI) | payer MEDICARE, SELFPAY ==
--- NOTE | 2021-04-21 08:00 | DI.US_ITS ---
Exam(s) US HERNIA EXAM: US HERNIA CLINICAL HISTORY: Confirm dx LLQ abd wall hernia vs. mass or other,K43.9. TECHNIQUE: Ultrasound was performed using standard protocol. COMPARISON: CT CT ABDOMEN PELVIS W from 10/22/[address] ABDOMEN PELVIS W from 10/22/2020 FINDINGS: Sonographic assessment utilizing grayscale and color Doppler imaging was performed and targeted to th e area of clinical concern. Note is made of a fat containing hernia in the left abdominal wall. On the CT examination from 021, there does appear to be a defect in the left anterior abdominal wall lateral to the rectus abdom inus muscle. (Series 4, image 70). IMPRESSION: Findings of a fat containing left anterior abdominal wall hernia. DATA REPOSITORY:
== END 2021-04-21 06:03 ==
PROVIDERS: PCP Nurse Practitioner Family; Visit Provider Nurse Practitioner Family
DX: K43.9 Ventral hernia without obstruction or gangrene (principal)
CPT/HCPCS: 76857

== ENCOUNTER 2022-01-28 03:22 | Outpatient (CLI) | payer MEDICARE, SELFPAY ==
[2022-01-28 14:00] LABS: Abs Immature Grans 0.02 10^3/uL (0.0-0.06); Absolute Basophil Count 0.08 10^3/uL (0.0-0.2); Absolute Eosinophil Count 0.21 10^3/uL (0.0-0.7); Absolute Lymphocyte Count 3.08 10^3/uL (1.2-3.4); Absolute Monocyte Count 0.62 10^3/uL (0.1-0.8); Absolute Neutrophil Count 4.69 10^3/uL (1.2-6.7); Basophils % 0.9; Eosinophils % 2.4; HCT 43.1 % (36.0-46.0); HGB 14.7 g/dL (11.2-15.7); Immature Grans % 0.2; Lymphocytes % 35.4; MCH 31.1 pg (27.0-33.0); MCHC 34.1 % (32.0-36.0); MCV 91 fL (80-95); MPV 9.7 fL (8.0-11.0); Monocytes % 7.1; Platelet Count 266 10^3/uL (130-400); RBC 4.72 10^6/uL (3.93-5.22); RDW 13.2 % (11.7-14.6); RDW-SD 45.1 fL
[2022-01-28 15:05] LABS: ALT 20 U/L (14-59); AST 17 U/L (15-37); Albumin 3.8 g/dL (3.4-5.0); Alkaline Phosphatase 48 U/L (46-116); Anion Gap 11.2 mmol/L (3-11); BUN 13 mg/dL (7-18); Bilirubin, Total 0.5 mg/dL (0.2-1.0); CO2 22.8 mmol/L (21.0-32.0); CREATININE 0.6 mg/dL (0.55-1.02); Calcium 9.2 mg/dL (8.5-10.1); Chloride 103 mmol/L (98-107); Estimated GFR 91.25 (mL/min/1.73m2); Glucose 104 mg/dL (74-106); Magnesium 1.6 mg/dL (1.8-2.4); Potassium 3.6 mmol/L (3.5-5.1); Sodium 137 mmol/L (136-145); TSH (W/Ref FT4) 1.98 uIU/mL (0.36-3.74); Total Protein 8.3 g/dL (6.4-8.2)
== END 2022-01-28 03:23 | disposition home or self-care (01) ==
LOC: LBO 03:22
PROVIDERS: PCP Nurse Practitioner Family; Visit Provider Nurse Practitioner Family
DX: R53.1 Weakness (principal); R53.83 Other fatigue; E03.9 Hypothyroidism, unspecified
CPT/HCPCS: 36415; 80053; 83735; 84443; 85025

== ENCOUNTER 2022-09-22 01:59 | Outpatient (CLI) | payer MEDICARE, SELFPAY ==
--- NOTE | 2022-09-22 06:50 | DI.US_ITS ---
Exam(s) US ABDOMEN LIMITED EXAM: US ABDOMEN LIMITED CLINICAL HISTORY: h/o fatty liver, hepatic steatosis, k76.0 TECHNIQUE: Ultrasound abdomen performed using standard protocol. COMPARISON: US US Abdomen Limited from 06/16/[address] Abdomen and Pelvis w/o Contrast from 08/02/2021 FINDINGS: LIVER: 18 cm in length. Mild fatty infiltration. Simple appearing cyst in the inferior right lobe m easuring 1.3 cm. No suspicious mass visible. GALLBLADDER: No evidence of cholelithiasis. No evidence of wall thickening. No pericholecystic fluid identified. VELASCO'S SIGN: Negative. BILIARY SYSTEM: No intrahepatic or extrahepatic biliary ductal dilation. KIDNEYS: Kidneys are symmetric in size. No evidence of renal calculi. No evidence of hydronephrosis. 2 centimeters cyst upper pole right kidney. PANCREAS: Normal where visualized. Tail obscured by bowel gas. SPLEEN: Not enlarged. ABDOMINAL AORTA AND IVC: Visualized portions normal caliber. ASCITES: None seen. IMPRESSION: Mild hepatic steatosis. No suspicious focal mass. Cyst again noted. DATA REPOSITORY:
== END 2022-09-22 02:19 ==
PROVIDERS: PCP Nurse Practitioner Family; Visit Provider Nurse Practitioner Family
DX: K76.0 Fatty (change of) liver, not elsewhere classified (principal)
CPT/HCPCS: 76705

== ENCOUNTER 2022-09-22 02:32 | Outpatient (CLI) | payer MEDICARE, SELFPAY ==
[2022-09-22 08:55] LABS: ALT 20 U/L (14-59); AST 18 U/L (15-37); Albumin 3.8 g/dL (3.4-5.0); Alkaline Phosphatase 59 U/L (46-116); Anion Gap 8.6 mmol/L (3-11); BUN 17 mg/dL (7-18); Bilirubin, Total 0.5 mg/dL (0.2-1.0); CO2 24.4 mmol/L (21.0-32.0); CREATININE 0.8 mg/dL (0.55-1.02); Calcium 9.3 mg/dL (8.5-10.1); Chloride 110 mmol/L (98-107); Glucose 89 mg/dL (74-106); Potassium 4.2 mmol/L (3.5-5.1); Sodium 143 mmol/L (136-145)
[2022-09-22 09:04] LABS: Magnesium 2.1 mg/dL (1.8-2.4)
== END 2022-09-22 02:33 | disposition home or self-care (01) ==
LOC: LBO 02:32
PROVIDERS: Absent Provider Nurse Practitioner Family; PCP Nurse Practitioner Family; Referring Provider Nurse Practitioner Family; Visit Provider Nurse Practitioner Family
DX: E83.42 Hypomagnesemia (principal); E03.9 Hypothyroidism, unspecified; I10 Essential (primary) hypertension; Z13.1 Encounter for screening for diabetes mellitus
CPT/HCPCS: 36415; 80053; 76705; 83735; 84443

== ENCOUNTER 2022-10-12 09:16 | Outpatient (CLI) | payer MEDICARE, SELFPAY ==
--- NOTE | 2022-10-12 09:04 | DI.RAD_ITS ---
Exam(s) XR SHOULDER LT COMPLETE 2+V EXAM: XR SHOULDER LT COMPLETE 2+V CLINICAL HISTORY: left shoulder pain. TECHNIQUE: 2D digital imaging was performed of the left shoulder. Two images were obtained. Axilla ry and AP views were obtained. COMPARISON: CR XR SHOULDER LT COMPLETE 2+V from 05/12/2020 FINDINGS: BONES: No acute fracture is present. No bony destructive lesion is seen. JOINTS: No dislocation present. There are degenerative changes again seen at the acromioclavicular an d glenohumeral joints characterized by joint space narrowing and bony hypertrophy. SOFT TISSUE: Tiny soft tissue calcifications are seen adjacent to the greater tuberosity which may re present calcific tendinitis. IMPRESSION: Mild degenerative changes of the shoulder as described. DATA REPOSITORY: RADIATION DOSE DELIVERED:
== END 2022-10-12 09:17 | disposition home or self-care (01) ==
PROVIDERS: PCP Nurse Practitioner Family; Referring Provider Nurse Practitioner Family; Visit Provider Student in an Organized Health Care Education/Training Program
DX: M75.102 Unspecified rotator cuff tear or rupture of left shoulder, not specified as traumatic (principal); M12.812 Other specific arthropathies, not elsewhere classified, left shoulder
CPT/HCPCS: 99214; 73030

== ENCOUNTER 2022-10-22 00:49 | Outpatient (CLI) | payer MEDICARE, SELFPAY ==
--- NOTE | 2022-10-22 13:30 | DI.CT_ITS ---
Exam(s) CT UPPER EXTREMITY LT WO EXAM: CT UPPER EXTREMITY LT WO CLINICAL HISTORY: Surgery planning,ROTATOR CUFF ARTHROPATHY,M75.102,M12.812 TECHNIQUE: Imaging Protocol: Axial computed tomography images with coronal and sagittal reformatted images were created and reviewed. CONTRAST MATERIAL: Noncontrast COMPARISON: CR XR SHOULDER LT COMPLETE 2+V from 10/12/2022 FINDINGS: Bones: There is no evidence of fracture or dislocation. The humeral head is superiorly positioned, articulating with the under surface of the acromion which shows spurring. Is consistent with a chronic rotator cuff tear. There is severe supraspinatus muscl e atrophy. There is also severe infraspinatus and teres minor muscle atrophy. No cellulitic or osteomyelitic changes are identified. There is moderate narrowing of the superior glenohumeral joint space. There is mild spurring at the inferior humeral head and glenoid. There are degenerative changes at the superior aspect of the bernarda ral head. No suspicious lytic or sclerotic lesions are identified. Soft Tissues: Normal. IMPRESSION: Degenerative changes of the glenohumeral joint. Evidence of chronic rotator cuff tear with severe at rophy of the supraspinatus, infraspinatus and teres minor muscles. RADIATION DOSE DELIVERED: 965.34mGy.cm Total DLP DATA REPOSITORY: All CT scans at this facility are submitted to the National Radiology Data Registry (NRDR) Dose Index Registry (DIR) with the [employer] ([employer]). RADIATION OPTIMIZATION: All CT scans at this facility use at least one of these dose optimization te chniques: automated exposure control; mA and/or kV adjustment per patient size (includes targeted exa ms where dose is matched to clinical indication); or iterative reconstruction.
== END 2022-10-22 01:09 ==
LOC: DI 00:49
PROVIDERS: PCP Nurse Practitioner Family; Visit Provider Student in an Organized Health Care Education/Training Program
DX: M19.012 Primary osteoarthritis, left shoulder (principal); M75.102 Unspecified rotator cuff tear or rupture of left shoulder, not specified as traumatic
CPT/HCPCS: 73200

== ENCOUNTER → 2022-11-02 08:48 | Outpatient (BNVA) | payer MEDICARE, SELFPAY | PROVIDERS: PCP Nurse Practitioner Family; Referring Provider Nurse Practitioner Family; Visit Provider Student in an Organized Health Care Education/Training Program | DX: M75.102 Unspecified rotator cuff tear or rupture of left shoulder, not specified as traumatic (principal); M12.812 Other specific arthropathies, not elsewhere classified, left shoulder | CPT/HCPCS: 99214 ==

== ENCOUNTER 2022-11-12 05:53 | Day surgery (SDC) | payer MEDICARE, SELFPAY ==
[2022-11-12] VITALS (11 sets, daily range): BP systolic 99–148; BP diastolic 51–81; PULSE 58–76; RESP 10–25; TEMP 36.5–36.7; O2SAT 94–97; BMI 33.5
--- NOTE | 2022-11-12 06:51 | PDOC.DSDIS_ITS ---
Date of service: 11/12/22 Time of Service: 12:00 Discharge Plan Disposition Patient Disposition: Home Discharge Details Attending Provider: Denys Serrano Primary Care Provider: Sandra Abraham Home Meds and New Rx's Prescriptions: New aspirin 81 mg tablet,delayed release (DR/EC) 81 mg PO DAILY 7 Days Qty: 7 0RF naproxen 250 mg tablet 250 - 500 mg PO BID PRNQty: 40 0RF Rx Instructions: take with a meal oxycodone-acetaminophen [Percocet] 5-325 mg tablet 1 - 2 tab PO Q4H MDD 30 mg PRN (Reason: Moderate to severe pain) Qty: 18 0RF Continued Metamucil (sugar) Powder 1 tbsp PO DAILY PRN Probiotic 1 EACH capsule 1 ea PO PRN Varicella-Zoster Ge/As01b/Pf [Shingrix Vial Kit] 50 MCG INJ 50 mcg IM ONCE Qty: 1 1RF levothyroxine 50 mcg tablet 50 mcg PO DAILY Qty: 90 3RF Rx Instructions: Administer in the morning on an empty stomach, at least 30-60 minutes before food amlodipine 5 mg tablet 5 mg PO DAILY Qty: 90 3RF omeprazole 40 mg capsule,delayed release(DR/EC) 40 mg PO DAILY Qty: 90 3RF Rx Instructions: Take 40 mg once daily in the morning at least 30 minutes before first meal cholecalciferol (vitamin D3) 1,000 UNIT capsule 1,000 unit PO DAILY Discontinued ibuprofen [Advil] 200 mg tablet 200 mg PO Q6H PRN Discharge Instructions Additional Instructions: Surgery: Left reverse total shoulder arthroplasty (constrained liner) with biceps tenodesis Activity: Do not lift anything heavier than a coffee. You should keep your shoulder at your side in a relatively neutral position. You should use the sling whenever you are out of the house. You may have to adjust the abduction pillow or remove it for comfort. At home it is best to remove the sling and rest the arm on a pillow at your side or support the operative side with your other hand. A physical therapy prescription will be sent electronically to [facility] in about 3 weeks. MODIFIED reverse TSA Protocol: Immediate active range of motion okay Postoperative Weeks 0-6 ?Immobilization: Sling may be removed for therapeutic exercises, resting in bed or chair, and bathing ?Motion exercises: Pendulum exercises, elbow range- of-motion exercises, wrist ggtkk-uc-rlvhdk exercises, and lamp cleaner street light strengthening ?Restrictions: No active internal rotation or backwards extension Postoperative Weeks 6-12 ?Immobilization: Sling discontinued ?Motion exercises: Shoulder passive range of motion, advancing to active- assisted range of motion, and finally active range of motion with a goal of forward flexion to 90? and external rotation of 20? ?Strengthening exercises: Light, resisted forward flexion, external rotation, and abduction limited to isometric exercises and therapy bands with concentric motions only. Continue lamp cleaner street light strengthening ?Restrictions: No resisted internal rotation or backwards extension. No scapular retraction exercises with therapy bands Postoperative Months 3-12 ?Motion exercises: Increase khgma-ps-icbsav exercises to achieve full motion, with passive stretching at end ranges ?Strengthening: Begin resisted, internal rotation and backwards extension initially with isometric exercises advancing to light therapy bands and then weights. Advance other shoulder strengthening exercises to include the rotator cuff, deltoid, and scapular stabilizers. Advance to functional strengthening, including plyometric exercises and core strengthening. Prescriptions: Aspirin 81 mg take 1 daily to prevent a blood clot for 2 weeks Naproxen 250 mg take 1-2 every 12 hours with a meal as needed for moderate pain Oxycodone?acetaminophen 5?325 mg take 1-2 every 4-6 hours as needed for severe pain (contains Tylenol) You may use hxwg-xax-yxsdbhr Tylenol (acetaminophen) as needed for mild pain. These pain medications may be taken all at once or in different combinations as needed. Also, recommend Colace (docusate) as a stool softener as surgery and pain medicine cause constipation. You may try oato-ooo-owcpbff diphenhydramine (Benadryl) 25-50 mg nightly as a sleep aid Dressings: Leave dressing in place until follow-up. Keep clean and dry at all times. No showers please. Follow-up: 10-[address] Serrano You may take off the leg compression stockings this evening at home. You may also leave them on a few days longer if you have a history of leg swelling or edema. Please call the office during business hours with any questions or concerns. Let us know right away if you develop any redness, drainage, fevers, chest pain, or trouble breathing. Do not drink alcohol or drive for at least 24 hours after anesthesia. Discharge Orders Discharge Orders: Discharge Order (Routine); Ordered 11/12/22 Ordered By: Denys Serrano DS: Diagnosis Discharge Diagnosis (1) Rotator cuff tear arthropathy of left shoulder: Status: Acute
--- NOTE | 2022-11-12 06:56 | W.PM.OP ---
Date of service: 11/12/22 Time of Service: 07:30 Operative Note Operative Note DATE OF PROCEDURE: 11/12/22 PRE-OP DIAGNOSIS: Left: 1. Rotator cuff arthropathy 2. Long head of the biceps tendinopathy POST-OP DIAGNOSIS: same PROCEDURE: Left: 1. Reverse total shoulder arthroplasty, CPT # 68[address] 2. Open biceps tenodesis, CPT # 70990 The business banking sales assistant was medically required as this procedure involves retraction, protection of neurovascular structures, and manipulation of multiple instruments and implants at the same time, which cannot be done without a skilled business banking sales assistant. SURGEON: Denys Serrano MANAGER ADULT: Darlin Reyes ANESTHESIA TYPE: Local By Surgeon, General LMA/ETT and Primary Nerve Block Refer to Anesthesia Record ESTIMATED BLOOD LOSS: 50 COMPLICATIONS: None Patient was transported to: PACU Patient's condition: stable Implants: [employer] modular glenoid system baseplate 24 mm +2 LAT [employer] modular glenoid system central screw 25 mm [employer] modular glenoid system peripheral locking screws 32 mm inferior, 32 mm superior, none posterior, 16 mm anterior [employer] modular glenoid system glenosphere 36 +4 mm lateralized [employer] humeral stem 135 degrees size 7 [employer] suture cup size 36 posterior offset [employer] spacer size 36 +6 mm [employer] humeral insert size 36 +3 mm constrained Indications: Please see complete medical record for details. Findings: Significant long head biceps tenosynovitis, high?grade tearing subscapularis and completely deficient superior and posterior superior rotator cuff, with moderate glenohumeral cartilage loss. Procedure Description: In the operating room, general anesthesia was induced. The patient was positioned beachchair on the operating room table. All bony prominences were well-padded. Preoperative antibiotics were administered. The shoulder was prepped and draped in the usual sterile fashion for shoulder arthroplasty. The correct patient, procedure, and side of the procedure were all verified prior to incision. The deltopectoral approach was preinjected with local anesthetic containing epinephrine and taken to the anterior shoulder. Care was taken to bluntly dissect the interval between the deltoid and pectoralis major muscles and to identify the cephalic vein within its fat stripe. The the vein was initially mobilized, but it was significantly diminutive and instead coagulated as it was unlikely to with stain retraction. Subdeltoid space and conjoined tendon were freed of adhesions. The long head of the biceps tendon was identified just lateral to the lesser tuberosity. The uppermost margin of the pectoralis major tendon was released from the proximal humerus. The long head of the biceps tendon was tenodesed in situ using SutureTape in a ftahrn-wb-[id number] fashion securing it superior margin the pectoralis major tendon. The biceps tendon was amputated and followed proximally to identify the rotator interval. The deficient subscapularis was released and then tenotomized. The humeral head was essentially bald of supraspinatus and infraspinatus, significant bursal tissue was removed with a rongeur. Appropriate coagulation was achieved especially interiorly. The anatomic neck was cut using an oscillating saw with the humeral head bone brought back table in case there was a need for future bone grafting. The proximal humeral protection plate was used to provisionally confirm suture cup and glenosphere size. The proximal humerus was delivered from the wound and maintained in external rotation. Reamers were started appropriately posterior to the bicipital groove taking care to maintain in line approach with the humeral canal. Sequential reaming was done from size 5 up to size 7. Next, the broaches were sequentially used to open the proximal humerus starting with a size 5 and going up to size 7 and sunk to the appropriate depth while maintaining approximately 20 degrees retroversion. There was good metaphyseal fit and rotational control of the proximal humerus with this size. The posterior offset guide was used to ream for the suture cup. The humeral broach stem was left in the canal for protection. Attention was then turned to the glenoid and retractors were placed and a circumferential release performed using the long head of the biceps remnant to remove soft tissue about the glenoid rim. Care was taken inferiorly to work on bone only between 5 and 7:00 o'clock and bluntly elevate tissues inferiorly. The standard guide was placed appropriately on the glenoid and used to place the central guidepin. The guidepin was inserted and advanced just through the far cortex ensuring adequate central fixation length. Depth gauge was used to confirm length. The glenosphere sizer was used to confirm positioning and glenosphere size. The backside of the baseplate reamer and underside of glenosphere reamers were then used. There was appropriate eccentric reaming inferiorly and anteriorly. The 10 mm central screw drill followed by appropriate tap were then used. The baseplate was screwed and fully compressed onto the glenoid surface. The locking guide was then used to drill and place appropriately lengthed inferior, superior, anterior screws with the posterior screw unnecessary so omitted. The adzu-qvb-odpsrxssi reamer was used to confirm adequate peripheral reaming. The glenosphere was applied with the electrical power station technician and then impacted to engage the Magana taper. It was then locked with appropriate countersinking of the setscrew. The glenosphere was inspected and found to have good fit, appropriate positioning, and no soft tissue or bony impingement. Attention was then turned back to humerus. The humeral trial cup was connected. Trialing was commenced with +3 mm liner. The shoulder was reduced and taken through range of motion. Trial components were built up to +6 mm liner with good tension, but slightly lax stability so built up to +6 mm spacer +3 mm liner to achieve excellent stability with slightly too much tension on the deltoid and conjoined tension. Decision was good to be based on final implant positioning between +6 and +9 mm construct with constraint. The trial components were removed from the proximal humerus. The wound was copiously irrigated with normal saline. The humeral component and suture cup were impacted into place. There was a slight medial calcar cortical crack that was noticed and protected with a FiberTape cerclage. It did not impact final implant stability. It did sit a millimeter or 2 deeper into the proximal humerus than the trial, which made the +9 mm construct the best choice. The final +6 mm spacer and +3mm constrained liner were then connected, and range of motion, stability, and tension confirmed. Constrained was chosen due to pleat lack of rotator cuff. In about 90 degrees of abduction external rotation the greater tuberosity moderately impinged on the undersurface acromion. A rongeur was used to reduce the greater tuberosity but not removed too much bone to weaken the suture cup support. Impingement was reduced even though the patient is unlikely to reach this position. The shoulder was copiously irrigated with Betadine and normal saline. Vancomycin powder was distributed deeply about the shoulder and through subcutaneous tissues. The deltopectoral interval was well approximated and repaired with a single stitch. Subcutaneous tissue was irrigated then closed using 2-0 Monocryl in a buried interrupted fashion. Skin was closed using 3-0 Monocryl in a buried subcuticular fashion. Skin glue was applied to the incision. A silver impregnated bandage was placed over the incision. The extremity was placed into a shoulder immobilizer. The patient awoke from anesthesia without complication and was taken to the recovery room in stable condition.
[2022-11-12] MEDS: Lactated Ringers 1,000 ML 30 ML IV (07:03)
--- NOTE | 2022-11-12 07:09 | ANES.PREOP_ITS ---
General Info Date of Service Date Performed: 11/12/22 Height: 5 ft 1 in Weight: 80.4 kg Body Mass Index (BMI): 33.5 Surgical Procedure: Operation Date: 11/12/22 07:40 Proposed Procedure Side Surgeon p Shoulder Reverse Total Arthroplasty, Biceps Tenodesis and any other indicated procedure Left Denys Serrano MD Meds Allergies and Home Medications Allergies Allergy/AdvReac Type Severity Reaction Status Date / Time Penicillins Allergy Intermediate Skin Rash, Verified 11/12/22 06:07 V&D horse fly bites AdvReac Mild arms Uncoded 11/11/22 14:36 swelled seasonal AdvReac Mild Uncoded 11/11/22 14:36 Home Medication Medication Instructions Recorded cholecalciferol (vitamin D3) 25 1,000 unit PO DAILY 02/13/13 mcg (1,000 unit) capsule Lactobacillus acidophilus 10 1 ea PO PRN 12/15/15 billion cell capsule (Probiotic) psyllium seed (sugar) oral powder 1 tbsp PO DAILY PRN 05/29/20 (Metamucil (sugar) oral powder) levothyroxine 50 mcg tablet 50 mcg PO DAILY #90 tab-caps 02/10/22 amlodipine 5 mg tablet 5 mg PO DAILY #90 tab-caps 08/04/22 omeprazole 40 mg capsule,delayed 40 mg PO DAILY #90 caps 08/04/22 release aspirin 81 mg tablet,delayed 81 mg PO DAILY prevent blood clot 11/12/22 release 7 days #7 tabs naproxen 250 mg tablet 250 - 500 mg PO BID PRN #40 tabs 11/12/22 oxycodone-acetaminophen 5 mg-325 1 - 2 tab PO Q4H PRN Moderate to 11/12/22 mg tablet (Percocet) severe pain #18 tabs Current Visit Medications: Current Medications Generic Name Dose Route Start Last Admin Trade Name Freq PRN Reason Stop Dose Admin Ringer's Solution 1,000 mls @ 30 mls/hr 11/12/22 06:00 11/12/22 07:03 IV 11/12/22 16:00 30 mls/hr INFUSION SABINA Administration Cefazolin Sodium/Dextrose 2 gm in 50 mls @ 100 mls/hr 11/12/22 06:00 Ancef Duplex IVPB 11/12/22 16:00 PREOP SABINA Tranexamic Acid 1,000 mg/ 60 mls @ 360 mls/hr 11/12/22 06:00 Sodium Chloride IVPB 11/12/22 16:00 PREOP SABINA Cefazolin Sodium/Dextrose 1 gm in 50 mls @ 100 mls/hr 11/12/22 11:30 Ancef Duplex IVPB 11/12/22 11:59 ONCE ONE IV Miscellaneous Supplies 1 each 11/12/22 06:00 Iv Access IV 11/12/22 16:00 DIRECTED SABINA Lactobacillus Acidophilus/Casei 1 cap 11/12/22 12:30 L. Acidophilus, Casei, Rhamnosus Cap PO 12/12/22 12:29 DAILY SABINA Oxycodone HCl 5 - 10 mg 11/12/22 06:40 Oxycodone 5 Mg Tab PO 12/12/22 06:39 Q3H PRN PRN Pain Sodium Chloride 0 ml 11/12/22 06:00 Normal Saline Flush 10 Ml Syr IV 11/12/22 16:00 PRN PRN Sodium Chloride 0 ml 11/12/22 06:00 Normal Saline 10 Ml Vial IJ 11/12/22 16:00 DIRECTED PRN Sterile Water 0 ml 11/12/22 06:00 Water,Injection,Sterile 10 Ml Vial IJ 11/12/22 16:00 DIRECTED PRN PFSH Active Problems Active Problems: Problem Status Onset Code GERD (gastroesophageal reflux disease) Fibrocystic breast disease (FCBD) N60.19 Hypothyroidism E03.9 Osteopenia M85.80 Essential hypertension I10 Otosclerosis H80.90 Sensorineural hearing loss (SNHL) H90.5 Vitamin D deficiency E55.9 Skin lesion of back L98.9 Obesity E66.9 Hyperlipidemia, unspecified E78.[address] Z96.21 Hiatal hernia K44.9 Low back pain M54.50 Hypomagnesemia E83.42 Steatosis of liver K76.0 Rotator cuff tear arthropathy of left shoulder M75.102, M12.812 Medical History Medical History Abdominal wall hernia S/p repair 11/24/2021 [facility] [place] Acute appendicitis Esophageal ulcer without bleeding Per 12/17/2009 EGD ([facility] [place]) --> resolved with repeat EGD 03/18/2020 Positive self-administered antigen test for COVID-19 (~04/2022) Posterior tibial tendon dysfunction (PTTD) of right lower extremity (12/15/15) Subfibular impingement of right lower extremity (12/15/15) Traumatic tear of left rotator cuff Tubular adenoma of colon (09/12/17) Medical History Comments:: Cochlear implant Surgical History Surgical History History of appendectomy History of cochlear implant Right S/P laparoscopic appendectomy (~10/18/20) S/P tubal ligation Status post hernia repair (11/24/21) [facility] [place] Tobacco Smoking/Tobacco Use Status: Former Tobacco Use Alcohol Alcohol Intake: current Alcohol intake frequency: a few times a week Substance Use Substance use: Never Substance use type: does not use Vital Signs and Lab Results Vital Signs Most Recent Vital Signs in EMR: Most Recent Vital Signs Temp Pulse Resp BP Pulse Ox 36.6 C 70 16 132/81 95 11/12/22 06:10 11/12/22 06:10 11/12/22 06:10 11/12/22 06:10 11/12/22 06:10 Lab Results Blood Type / Crossmatch: No Data to Display Complete Blood Count: No Data to Display Complete Metabolic Panel: No Data to Display Liver Function Panel: No Data to Display Coagulation Panel: No Data to Display Cardiac Panel: No Data to Display Arterial Blood Gas: No Data to Display Venous Blood Gas: No Data to Display Pancreas Panel: No Data to Display Thyroid Panel: No Data to Display Infectious Disease: No Data to Display Blood Cultures: No Data to Display Toxicology Panel: No Data to Display Imaging and Studies Imaging and Studies Study information below may be from another EMR and interpreted by another provider. Please see original notes in EMR for more complete details. EKG Summary: Conclusion Sinus rhythm. Borderline T abnormalities, diffuse leads...T flat/neg 10/17/20 Anesthesia Assessment and Plan Anesthesia History Personal History: No History of Anesthesia Complications Family History: No Family History of Anesthesia Complications Exercise Tolerance Exercise Tolerance: Metabolic Equivalents<4 Pertinent Negatives Pertinent Negatives: No Symptoms of GERD, No Major Cardiovascular Symptoms or Complaints, No Major Pulmonary Symptoms or Complaints and No History of CVA/TIA Cardiac & Pulmonary Exam Cardiac Exam: Normal S1/S2 Heart Sounds Pulmonary Exam: Clear Bilateral Breath Sounds Implantable Cardiac Device Does patient have a Pacemaker or an ICD?: No Airway Exam Known Difficult Airway: No Mallampati Class: 2 Mouth Opening: Normal (> 3cm) Thyromental Distance: Greater than 3 cm Neck Range of Motion: Limited ROM Neck Circumference: Normal Teeth Condition: Normal Dentition ASA Classification ASA Score: ASA 3 Emergency Case?: No NPO Status NPO Status: NPO Clears >2 hours, Solids >8 hours Anesthesia Plan Resuscitation Status: Full Code Anesthesia Technique: General Anesthesia Airway Planned: Endotracheal Tube Pain Management: Surgeon and patient request nerve block Monitors Used: Standard Monitors Preoperative Comments:: Cochlear implant, will leave in place until induction.
[2022-11-12] MEDS: ceFAZolin 2 GM/50 ML BAG IVPB (07:45)
--- NOTE | 2022-11-12 08:28 | W.ANESNERVE ---
Nerve Block Single Injection Procedure Date and Time Date Performed: 11/12/22 Procedure Start: 07:24 Location Where Procedure Performed Procedure Location: Day Surgery Unit Reason Performed: Postoperative Analgesia Requesting Provider: Denys Serrano Timeout Performed Timeout Performed: Yes Monitoring Used ECG, Blood Pressure, SpO2 and See EMR for corresponding vital signs Sterility Sterility: Hand Hygiene, Surgical Cap, Surgical Mask, Sterile Gloves, Sterile Drape/Sheet and Chlorhexidine Sedation Given During Procedure Sedation Given (Indicate Dose Given): Versed IV Dose:: 2 mg Patient Mental Status Patient Mental Status: Sedate with meaningful communication Nerve Block 1st Nerve Block: Laterality: Left Block Type: Interscalene Ultrasound Image Saved?: Yes Needle / Catheter Used: 100mm SonoPlex II Local Anesthetic Bolus (Indicate Dose Given): Lidocaine used for local infiltration of skin, Injected in 3-5ml increments after negative blood aspiration, Bupivacaine 0.5% Dose:: 10 ml and Exparel Dose:: 10 ml Additives (Indicate Dose Given): None Ultrasound: Sterile probe cover and gel used Nerve Stimulator: Not Used Paresthesia: None Procedure Tolerated: No Complications and Patient tolerated well Procedure Outcome: Successful Performed By: Michaela Leon
--- NOTE | 2022-11-12 11:00 | DI.RAD_ITS ---
Exam(s) XR SHOULDER LT COMPLETE 2+V EXAM: XR SHOULDER LT COMPLETE 2+V CLINICAL HISTORY: Shoulder arthritis. TECHNIQUE: 2D digital imaging was performed of the left shoulder. Three images were obtained. Gras hey and Y views were obtained. COMPARISON: CR XR SHOULDER LT COMPLETE 2+V from 10/12/2022 FINDINGS: BONES: No acute fracture is present. No bony destructive lesion is seen. JOINTS: No dislocation present. The patient is now status post left total reverse shoulder replacemen t. The orthopedic hardware appears in good position. SOFT TISSUE: Normal. IMPRESSION: Status post left total reverse shoulder replacement. DATA REPOSITORY: RADIATION DOSE DELIVERED:
[2022-11-12] MEDS: ceFAZolin 1 GM/50 ML BAG IVPB (11:44)
--- NOTE | 2022-11-12 13:34 | W.ANESPOSTOP ---
Postoperative Evaluation Date, Time and Location Date Performed: 11/12/22 Time Performed: 13:11 Patient Location: Day Surgery Unit Vital Signs Most Recent Imported Vital Signs: Most Recent Vital Signs Temp Pulse Resp BP Pulse Ox 36.6 C 72 16 124/81 95 11/12/22 12:37 11/12/22 12:37 11/12/22 12:37 11/12/22 12:37 11/12/22 12:37 Pain Score Most Recent Pain Score: Most Recent Pain Score Pain Level 0 11/12/22 12:37 Assessment Mental Status: Awake (Alert & Oriented to Patient Baseline) Airway and Respiratory Function: Patent airway with normal (patient baseline) respiratory exam Cardiovascular Function: Hemodynamically Stable Hydration Status: Adequately Hydrated Nausea & Vomiting: No Nausea or Vomiting Pain: Pt. Denies Any Pain Peripheral Nerve Block: Regional nerve block not resolved at time of post operative discharge
== END 2022-11-12 05:54 | disposition home or self-care (01) ==
PROVIDERS: PCP Nurse Practitioner Family; Visit Provider Student in an Organized Health Care Education/Training Program
PROC: (CPT 23472; principal; 2022-11-12 07:30)
DX: M19.012 Primary osteoarthritis, left shoulder (principal); M75.122 Complete rotator cuff tear or rupture of left shoulder, not specified as traumatic; M75.22 Bicipital tendinitis, left shoulder
CPT/HCPCS: 23472; 76942; 73030; C1781; J0690; J1100; J1885; J2001; J2250; J2371; J2405; J2704

== ENCOUNTER 2022-11-24 14:04 | Outpatient (CLI) | payer MEDICARE, SELFPAY ==
--- NOTE | 2022-11-24 13:30 | DI.RAD_ITS ---
Exam(s) XR SHOULDER LT COMPLETE 2+V EXAM: XR SHOULDER LT COMPLETE 2+V INDICATION: s/p reverse TSA. COMPARISON: CR XR SHOULDER LT COMPLETE 2+V from 11/12/2022 TECHNIQUE: 2D digital imaging was performed. Two views. FINDINGS: There has been no change in the alignment of the reverse shoulder prosthesis. There are no suspiciou s bony lucencies. DATA REPOSITORY: RADIATION DOSE DELIVERED:
== END 2022-11-24 14:05 | disposition home or self-care (01) ==
LOC: DIORS 14:05
PROVIDERS: PCP Nurse Practitioner Family; Referring Provider Nurse Practitioner Family; Visit Provider Student in an Organized Health Care Education/Training Program
DX: Z47.1 Aftercare following joint replacement surgery; Z96.612 Presence of left artificial shoulder joint
CPT/HCPCS: 73030

== ENCOUNTER 2022-12-23 17:53 | Emergency (ER) | payer MEDICARE, SELFPAY ==
[2022-12-23] VITALS (16 sets, daily range): BP systolic 94–147; BP diastolic 66–87; PULSE 63–84; RESP 14; TEMP 37.1; O2SAT 95–98
--- NOTE | 2022-12-23 17:45 | DI.RAD_ITS ---
Exam(s) XR SHOULDER LT COMPLETE 2+V EXAM: XR SHOULDER LT COMPLETE 2+V CLINICAL HISTORY: trauma, pain. TECHNIQUE: 2D digital imaging was performed. COMPARISON: CR XR SHOULDER LT COMPLETE 2+V from 11/12/2022 CR XR SHOULDER LT COMPLETE 2+V from 11/24/2022 FINDINGS: Five views. No evidence of acute fracture. There is stable appearance of the reverse prosthesis in left shoulder . No fracture or loosening. Ipsilateral clavicle and AC joint appear unremarkable. IMPRESSION: Stable satisfactory appearance. No fracture. DATA REPOSITORY: RADIATION DOSE DELIVERED:
--- NOTE | 2022-12-23 17:45 | RT.EKG_ITS ---
APPROVED REPORT Exam: Resting ECG Reason for Exam: fall Patient Location: E HR:76 bpm ECG Measurements Heart Rate 76 AXIS MI 194 P 4 QRSd 87 QRS 13 QT 387 T 13 QTc 437 Conclusion Sinus rhythm...normal P axis, V-rate 60- 99 NORMAL SINUS RHYTHM. WD
--- NOTE | 2022-12-23 17:45 | DI.RAD_ITS ---
Exam(s) XR KNEE LT 3V AP,LAT,FRANKY EXAM: XR KNEE LT 3V AP,LAT,FRANKY CLINICAL HISTORY: trauma. TECHNIQUE: 2D digital imaging was performed. COMPARISON: No exams were available for comparison FINDINGS: 3 views No evidence of fracture obvious joint effusion. Bone density is normal. No osseous lesions. No deg enerative changes evident. IMPRESSION: No fracture or joint effusion. DATA REPOSITORY: RADIATION DOSE DELIVERED:
--- NOTE | 2022-12-23 17:55 | DI.CT_ITS ---
Exam(s) CT HEAD CERV SPINE FACIAL WO EXAM: CT HEAD CERV SPINE FACIAL WO CLINICAL HISTORY: fall, injury. TECHNIQUE: Imaging Protocol: Axial computed tomography images with coronal and sagittal reformatted images were created and reviewed COMPARISON: No exams were available for comparison FINDINGS: CT BRAIN: There are no skull fractures nor fluid in the visualized paranasal sinuses. Right cochlear implant e vident. There is no evidence of intracranial hemorrhage, mass effect, or shift of midline structures. There are no extra-axial fluid collections. The ventricles are not enlarged or shifted and there is no blo od within the ventricular system nor within the basal cisterns. CT MAXILLOFACIAL BONES: There mild mucosal swelling both maxillary sinuses, not associated with fluid levels. No fractures. No nasal bone fracture. No orbital fractures. Mandible fracture. Left-sided nasal septal spur inc identally noted. No septal fracture. CT CERVICAL SPINE: There is no evidence of fracture nor listhesis. No significant prevertebral soft tissue swelling. Mu ltilevel degenerative changes. Multilevel chronic disc disease. Multilevel facet arthropathy. No face t malalignment evident. No significant osseous lesions evident. IMPRESSION: No acute intracranial findings on this noninfused CT scan of the brain. No evidence of facial nor orbital blowout fractures. No evidence of cervical spine fracture, malalignment, nor acute compromise of the cervical spinal can al. Multilevel degenerative cervical spine changes. Also mild reversal of curvature. RADIATION DOSE DELIVERED: 2,131.28mGy.cm Total DLP DATA REPOSITORY: All CT scans at this facility are submitted to the National Radiology Data Registry (NRDR) Dose Index Registry (DIR) with the [employer] (A[employer]). RADIATION OPTIMIZATION: All CT scans at this facility use at least one of these dose optimization te chniques: automated exposure control; mA and/or kV adjustment per patient size (includes targeted exa ms where dose is matched to clinical indication); or iterative reconstruction.
--- NOTE | 2022-12-23 17:59 | W.ED.GENAD ---
Discharge Plan Disposition Patient Disposition: Home Discharge Details Chief Complaint: Fall/Non TraumaCriteria Clinical Impression: Head injury due to trauma, Epistaxis, Abrasion of nose, Contusion of knee, Left shoulder strain Primary Care Provider: Sandra Abraham ED Provider: Casie Cardenas Home Meds and New Rx's Prescriptions: No Action acetaminophen [Tylenol] 325 mg capsule 325 mg PO ONCE PRN Metamucil (sugar) Powder 1 tbsp PO DAILY PRN Probiotic 1 EACH capsule 1 ea PO PRN Varicella-Zoster Ge/As01b/Pf [Shingrix Vial Kit] 50 MCG INJ 50 mcg IM ONCE Qty: 1 1RF levothyroxine 50 mcg tablet 50 mcg PO DAILY Qty: 90 3RF Rx Instructions: Administer in the morning on an empty stomach, at least 30-60 minutes before food amlodipine 5 mg tablet 5 mg PO DAILY Qty: 90 3RF omeprazole 40 mg capsule,delayed release(DR/EC) 40 mg PO DAILY Qty: 90 3RF Rx Instructions: Take 40 mg once daily in the morning at least 30 minutes before first meal cholecalciferol (vitamin D3) 1,000 UNIT capsule 1,000 unit PO DAILY Discharge Instructions Instructions: Nosebleed (ED), Head Injury (ED), Contusion in Adults (ED), Shoulder Sprain (ED) Additional Instructions: Wear brooks wrap for comfort. Please follow-up with orthopedics. Referrals: Sandra Abraham, [employer] [Primary Care Provider] - 3 days Discharge Data Discharge Physician: Casie Cardenas Medical Decision Making 77-year-old female presents for evaluation after mechanical fall. At time my evaluation she has pain to her left knee, left shoulder, and nose. She is neurologically intact. NIH stroke score = 0. CT head, cervical spine, and facial bones are negative for any fracture. Patient did not have any further epistaxis in the emergency department. On my review of x-ray of left shoulder and left knee no fractures noted. Patient is reassured with findings. She will continue Tylenol or Motrin as needed for at home for pain. She will follow-up with orthopedics given her recent surgery. She understands indications to return. HPI General Date/Time Provider Initiated Documentation: 12/23/22 17:55. HPI Narrative: 77-year-old female presents for evaluation after mechanical fall. Patient states that she did not see her rug rolled up and tripped over it. She landed down on her face. She had. She has pain to her left shoulder and left knee. There is bruising on the left anterior knee already. She had recent left shoulder replacement. She was unable to get up herself. Her called for an ambulance. She denies any headache. No blurry vision or double vision. No nausea or vomiting. No chest pain or shortness of breath. She is not on any blood thinners. Related Data Home Medications Medication Instructions Recorded Confirmed cholecalciferol (vitamin D3) 25 1,000 unit PO DAILY 02/13/13 12/23/22 mcg (1,000 unit) capsule Lactobacillus acidophilus 10 1 ea PO PRN 12/15/15 12/23/22 billion cell capsule (Probiotic) psyllium seed (sugar) oral powder 1 tbsp PO DAILY PRN 05/29/20 12/23/22 (Metamucil (sugar) oral powder) levothyroxine 50 mcg tablet 50 mcg PO DAILY #90 tab-caps 02/10/22 12/23/22 amlodipine 5 mg tablet 5 mg PO DAILY #90 tab-caps 08/04/22 12/23/22 omeprazole 40 mg capsule,delayed 40 mg PO DAILY #90 caps 08/04/22 12/23/22 release acetaminophen 325 mg capsule 325 mg PO ONCE PRN 11/24/22 12/23/22 (Tylenol) Previous Rx's Medication Instructions Recorded levothyroxine 50 mcg tablet 50 mcg PO DAILY #90 tab-caps 02/10/22 amlodipine 5 mg tablet 5 mg PO DAILY #90 tab-caps 08/04/22 omeprazole 40 mg capsule,delayed 40 mg PO DAILY #90 caps 08/04/22 release Allergies Allergy/AdvReac Type Severity Reaction Status Date / Time Penicillins Allergy Intermediate Skin Rash, Verified 12/23/22 18:00 V&D horse fly bites AdvReac Mild arms Uncoded 12/23/22 18:00 swelled seasonal AdvReac Mild Uncoded 12/23/22 18:00 General Stated Complaint: Fall/Non TraumaCriteria NEETA: 3 Review of Systems Narrative: Remainder of review of systems otherwise negative except for as noted in the HPI x10. PFSH All Active Problems Head injury due to trauma (Acute) Epistaxis (Acute) Abrasion of nose (Acute) Contusion of knee (Acute) Left shoulder strain (Acute) GERD (gastroesophageal reflux disease) (Chronic) Continue PPI indefinitely per [facility] [place]03/18/2010[place] h/o esophageal ulcer & hiatal hernia Fibrocystic breast disease (FCBD) (Chronic) Hypothyroidism (Chronic) Osteopenia (Chronic) Essential hypertension (Chronic) Otosclerosis (Chronic) Sensorineural hearing loss (SNHL) (Chronic) Vitamin D deficiency (Chronic) Skin lesion of back (Acute) Obesity (Chronic) Hyperlipidemia, unspecified (Chronic) Statin intolerance Cochlear implant in place (Chronic) Right Hiatal hernia (Chronic) Small, per 03/18/2010 EGD [place] Low back pain (Acute) Hypomagnesemia (Acute) Steatosis of liver (Chronic) 09/22/2022 US: mild hepatic steatosis. LFTs always NL; plan to do further w/u if LFTs become elevated. Rotator cuff tear arthropathy of left shoulder (Acute) s/p left reverse total shoulder replacement on 11/12/22 Medical History Abdominal wall hernia S/p repair 11/24/20[place] [facility] appendicitis Esophageal ulcer without bleeding Per 12/17/2009 EGD [place] --> resolved with repeat EGD 03/18/2020 Positive self-administered antigen test for COVID-19 (~04/2022) Posterior tibial tendon dysfunction (PTTD) of right lower extremity (12/15/15) Seborrheic keratosis (~11/2022) R upper back Subfibular impingement of right lower extremity (12/15/15) Traumatic tear of left rotator cuff Tubular adenoma of colon (09/12/17) Surgical History History of appendectomy History of cochlear implant Right S/P laparoscopic appendectomy (~10/18/20) S/P tubal ligation Status post hernia repair (11/24/21) [facility] Family History Mother No problems noted. Father COPD (chronic obstructive pulmonary disease) Sister Essential hypertension Stroke Maternal Grandmother Essential hypertension Stroke Son Alcohol abuse Social History Smoking/Tobacco Use Status: Former Tobacco Use Quit Date: 05/23/89 Smoking risk assessment performed?: Yes Alcohol Intake: current Alcohol Intake frequency: a few times a week Drug use: Never Substance use type: does not use Adopted: No Caregiver/Support person: No Foster care: No Household members: spouse Housing: house Number of Children: 2 number of grandchildren: 1 Communication Needs: Corrective Lenses Education Level: college Do you need help understanding health information?: Rarely current occupation: Retired Pets and animals: Yes Pets and animals: cat(s) Sexually active: No Do you think of yourself as: straight/heterosexual Current gender identity: female What is your relationship status?: How often do you talk on the phone with friends or family?: twice per week How often do you get together with friends or relatives?: three or more times per week Do you belong to any clubs or organized social groups?: no Panel score (0-1 are the most socially isolated patients): 2 Duration: < 15 minutes/day Frequency: 1-2 times per week Seatbelt use: always Helmet use: Yes Drive intox or ride w/intox trailer driver: No Water heater temp set <120 deg: Yes Working smoke detector in home: Yes Fire extinguisher in home: Yes Carbon monox detector in home: Yes Firearms in home: Yes Firearms unloaded and locked: Yes In current or past relationships, have you been: made to feel afraid Do you feel safe at home: Yes Do you feel safe in your relationship?: Yes Exam Narrative Exam Narrative: General: non-toxic, no respiratory distress, comfortable HEENT: normocephalic, abrasions to bridge of nose, lids and lashes normal, PERRL, EOMI, anicteric sclera, no conjunctival injection, TMs normal bilaterally without hemotympanum, dried blood at nares, no septal hematoma, moist oral mucosa Neck: No vertebral tenderness Card: regular rate and rhythm, S1S2, no murmurs, rubs, or gallops Lungs: good air entry, clear to auscultation bilaterally. no wheezes, rales, rhonchi, or retractions Abd: soft, non-tender, non-distended, normal bowel sounds, no rebound or guarding, no peritoneal signs Musculoskeletal: no vertebral tenderness, pelvis stable, bruising to left anterior knee, able to fully range, with well-healed incision left anterior shoulder, able to fully range shoulder, otherwise full range of motion of arms and legs, no tenderness to palpation. no clubbing, cyanosis, or edema Neurologic: appropriate for age, strength normal Psych: alert and oriented Skin: as above, otherwise no petechiae, no lesions, warm and dry Course Vital Signs Vital signs: Vital Signs Temperature 37.1 C 12/23/22 17:47 Pulse 84 12/23/22 17:47 Respiratory Rate 14 12/23/22 17:47 Blood Pressure 121/87 12/23/22 17:47 Pulse Oximetry 95 12/23/22 17:47 Temperature 37.1 C 12/23/22 17:47 Temperature Source Oral 12/23/22 17:47 Pulse 84 12/23/22 17:47 Respiratory Rate 14 12/23/22 17:47 Blood Pressure 121/87 12/23/22 17:47 Blood Pressure Position Supine 12/23/22 17:47 Pulse Oximetry 95 12/23/22 17:47 Oxygen Delivery Method Room Air 12/23/22 17:47 Oxygen Flow Rate 0 12/23/22 17:47 Pain Level 5 12/23/22 17:47
--- NOTE | 2022-12-23 19:04 | NUR.NOTE ---
This RN assumed care at this time, report received by Estefanía MCMULLEN, pt in [place].
--- NOTE | 2022-12-23 19:23 | DI.VRAD_ITS ---
PROCEDURE INFORMATION: Exam: CT Head Without Contrast Exam date and time: 12/23/2022 6:58 PM Age: 77 years old Clinical indication: Injury or trauma; Fall; Concussion/head injury; Consciousness not specified; Blunt trauma (contusions or hematomas); Nose TECHNIQUE: Imaging protocol: Computed tomography of the head without contrast. Radiation optimization: All CT scans at this facility use at least one of these dose optimization techniques: automated exposure control; mA and/or kV adjustment per patient size (includes targeted exams where dose is matched to clinical indication); or iterative reconstruction. COMPARISON: CR Cervical Spine Limited 09/19/2017 9:00 AM FINDINGS: Tubes, catheters and devices: Chronic right cochlear implant. Brain: No intracranial hemorrhage or extra-axial fluid collection. No evidence of mass effect or midline shift. Smith-white matter differentiation is intact. Cerebral ventricles: No ventriculomegaly. Mastoid air cells: Unremarkable. Bones/joints: No acute calvarial fracture. Soft tissues: Scalp soft tissues are unremarkable. IMPRESSION: No acute intracranial pathology. PROCEDURE INFORMATION: Exam: CT Maxillofacial Without Contrast Exam date and time: 12/23/2022 6:58 PM Age: 77 years old Clinical indication: Injury or trauma; Fall; Concussion/head injury; Consciousness not specified; Blunt trauma (contusions or hematomas); Nose TECHNIQUE: Imaging protocol: Computed tomography of the face without contrast. Radiation optimization: All CT scans at this facility use at least one of these dose optimization techniques: automated exposure control; mA and/or kV adjustment per patient size (includes targeted exams where dose is matched to clinical indication); or iterative reconstruction. COMPARISON: CR Cervical Spine Limited 09/19/2017 9:00 AM FINDINGS: Orbital cavities: Globes are intact. Intraconal fat is normal. Bones/joints: No acute osseus lesion or fracture. Paranasal sinuses: Mild mucosal thickening of the ethmoid air cells. Soft tissues: Unremarkable. IMPRESSION: No acute maxillofacial fracture. PROCEDURE INFORMATION: Exam: CT Cervical Spine Without Contrast Exam date and time: 12/23/2022 6:58 PM Age: 77 years old Clinical indication: Injury or trauma; Fall; Concussion/head injury; Consciousness not specified; Blunt trauma (contusions or hematomas); Nose TECHNIQUE: Imaging protocol: Computed tomography of the cervical spine without contrast. Radiation optimization: All CT scans at this facility use at least one of these dose optimization techniques: automated exposure control; mA and/or kV adjustment per patient size (includes targeted exams where dose is matched to clinical indication); or iterative reconstruction. COMPARISON: CR Cervical Spine Limited 09/19/2017 9:00 AM FINDINGS: Bones/joints: Vertebral body heights are maintained. No locked or perched facets. Multilevel facet arthropathy. No acute cervical spine fracture. The dens is intact. Atlanto-axial intervals are normal. Multilevel degenerative changes with intervertebral disc height loss and osteophyte formation, with multilevel areas of mild canal stenosis. Lungs: Lung apices are clear. Soft tissues: Unremarkable. IMPRESSION: No acute cervical spine fracture. Dictated and Authenticated by: Hollis Alvarez MD. Ordering:RYLAND Jason MD
--- NOTE | 2022-12-23 19:41 | DI.VRAD_ITS ---
PROCEDURE INFORMATION: Exam: XR Left Knee Exam date and time: 12/23/2022 7:06 PM Age: 77 years old Clinical indication: Injury or trauma; Fall; Blunt trauma; Knee; Left TECHNIQUE: Imaging protocol: Radiologic exam of the left knee. Views: 3 views. COMPARISON: No relevant prior studies available. FINDINGS: Bones/joints: Mild joint space narrowing and osteophyte formation in the medial and patellofemoral compartments. Osseous alignment is normal. No acute fracture or joint fluid Soft tissues: Normal. IMPRESSION: Mild osteoarthritis Dictated and Authenticated by: Glynn Burroughs MD. Ordering:RYLAND Jason MD
--- NOTE | 2022-12-23 19:42 | DI.VRAD_ITS ---
PROCEDURE INFORMATION: Exam: XR Left Shoulder Exam date and time: 12/23/2022 7:05 PM Age: 77 years old Clinical indication: Injury or trauma; Fall; Blunt trauma (contusions or hematomas); Left; Prior surgery; Surgery date: 1-6 months; Surgery type: Shoulder replacement TECHNIQUE: Imaging protocol: Radiologic exam of the left shoulder. Views: 2 or more views. COMPARISON: CR XR SHOULDER LT COMPLETE 2+V 11/24/2022 1:46 PM FINDINGS: Bones/joints: Left shoulder prosthesis remains in place. No evidence of hardware failure or loosening. Moderate degenerative changes in the acromioclavicular joint. No acute fracture. Soft tissues: Normal. IMPRESSION: No acute abnormality Dictated and Authenticated by: Glynn Burroughs MD. Ordering:RYLAND Jason MD
== END 2022-12-23 19:59 | disposition home or self-care (01) ==
PROVIDERS: Emergency Provider Emergency Medicine Emergency Medical Services; PCP Nurse Practitioner Family
DX: S00.31XA Abrasion of nose, initial encounter (principal); S80.00XA Contusion of unspecified knee, initial encounter; S46.912A Strain of unspecified muscle, fascia and tendon at shoulder and upper arm level, left arm, initial encounter; S09.90XA Unspecified injury of head, initial encounter; R04.0 Epistaxis; W19.XXXA Unspecified fall, initial encounter
CPT/HCPCS: 73562; 93005; 99285; 70450; 70486; 72125; 73030; 93010; 99283

== ENCOUNTER 2022-12-24 09:49 | Outpatient (CLI) | payer MEDICARE, SELFPAY ==
--- NOTE | 2022-12-24 11:28 | DI.RAD_ITS ---
Exam(s) XR FOOT RT COMPLETE EXAM: XR FOOT RT COMPLETE CLINICAL HISTORY: eval R foot pain s/p fall. TECHNIQUE: 2D digital imaging was performed. Three views. COMPARISON: No exams were available for comparison FINDINGS: BONES: 1st metatarsal bunionectomy. No acute fracture is present. No bony destructive lesion is seen . Ossicles adjacent to talus. Plantar calcaneal spur. JOINTS: No dislocation present. Hallux valgus. Degenerative changes 1st MTP joint. SOFT TISSUE: Normal. IMPRESSION: Degenerative and postsurgical changes. No acute abnormality. DATA REPOSITORY: RADIATION DOSE DELIVERED:
== END 2022-12-24 09:50 | disposition home or self-care (01) ==
LOC: DIORS 09:49
PROVIDERS: PCP Nurse Practitioner Family; Referring Provider Nurse Practitioner Family; Visit Provider Student in an Organized Health Care Education/Training Program
DX: S92.401A Displaced unspecified fracture of right great toe, initial encounter for closed fracture; W18.09XA Striking against other object with subsequent fall, initial encounter
CPT/HCPCS: 99213; 73630

== ENCOUNTER 2023-01-12 11:16 | Outpatient (CLI) | payer MEDICARE, SELFPAY ==
--- NOTE | 2023-01-12 11:00 | DI.RAD_ITS ---
Exam(s) XR SHOULDER LT COMPLETE 2+V EXAM: XR SHOULDER LT COMPLETE 2+V CLINICAL HISTORY: F/U LEFT RTSA. TECHNIQUE: 2D digital imaging was performed of the left shoulder. Two images were obtained. AP and Y views were obtained. COMPARISON: CR,XR XR SHOULDER LT COMPLETE 2+V from 12/23/2022 FINDINGS: BONES: No acute fracture is present. No bony destructive lesion is seen. JOINTS: No dislocation present. Stable postsurgical changes of a left total reverse shoulder replacem ent. There is no evidence of hardware failure. The acromioclavicular joint is unremarkable. SOFT TISSUE: Normal. IMPRESSION: Stable left total reverse shoulder replacement. DATA REPOSITORY: RADIATION DOSE DELIVERED:
== END 2023-01-12 11:17 | disposition home or self-care (01) ==
LOC: DIORS 11:16
PROVIDERS: PCP Nurse Practitioner Family; Referring Provider Nurse Practitioner Family; Visit Provider Student in an Organized Health Care Education/Training Program
DX: S92.401D Displaced unspecified fracture of right great toe, subsequent encounter for fracture with routine healing (principal); X58.XXXD Exposure to other specified factors, subsequent encounter; Z96.612 Presence of left artificial shoulder joint; M12.812 Other specific arthropathies, not elsewhere classified, left shoulder; M75.102 Unspecified rotator cuff tear or rupture of left shoulder, not specified as traumatic
CPT/HCPCS: 73030

== ENCOUNTER → 2023-03-09 08:59 | Outpatient (BNVA) | payer MEDICARE, SELFPAY | PROVIDERS: PCP Nurse Practitioner Family; Referring Provider Nurse Practitioner Family; Visit Provider Student in an Organized Health Care Education/Training Program | DX: Z47.1 Aftercare following joint replacement surgery (principal); Z96.612 Presence of left artificial shoulder joint; M12.812 Other specific arthropathies, not elsewhere classified, left shoulder | CPT/HCPCS: 99213 ==

== ENCOUNTER 2023-11-12 22:33 | Emergency (ER) | payer MEDICARE, SELFPAY ==
--- NOTE | 2023-11-12 22:30 | RT.EKG_ITS ---
APPROVED REPORT Exam: Resting ECG Reason for Exam: chest pain Patient Location: E HR:77 bpm ECG Measurements Heart Rate 77 AXIS RI 174 P 27 QRSd 78 QRS 24 QT 365 T 52 QTc 413 Conclusion Sinus rhythm...normal P axis, V-rate 60- [address] segment or T wave abnormalities to suggest occlusive [place]
[2023-11-12 22:37] VITALS: BP 168/94; PULSE 86; RESP 22; TEMP 36.4; O2SAT 97
[2023-11-12] MEDS: Lidocaine 2% Viscous 15 ML CUP (23:03)
[2023-11-12] MEDS: Ketorolac 15 MG/ML VIAL IVP (23:17)
[2023-11-12 23:18] LABS: Abs Immature Grans 0.02 10^3/uL (0.0-0.06); Absolute Basophil Count 0.04 10^3/uL (0.0-0.2); Absolute Eosinophil Count 0.29 10^3/uL (0.0-0.7); Absolute Lymphocyte Count 3.06 10^3/uL (1.2-3.4); Absolute Monocyte Count 0.93 10^3/uL (0.1-0.8); Absolute Neutrophil Count 5.56 10^3/uL (1.2-6.7); Basophils % 0.4 %; Eosinophils % 2.9 %; HCT 42.9 % (36.0-46.0); Immature Grans % 0.2 %; Lactate 1.4 mmol/L (0.6-1.4); Lymphocytes % 30.9 %; MCH 30.6 pg (27.0-33.0); MCHC 32.6 % (32.0-36.0); MCV 94 fL (80-95); MPV 9.7 fL (8.0-11.0); Monocytes % 9.4 %; Neutrophils % 56.2 %; Platelet Count 263 10^3/uL (130-400); RBC 4.57 10^6/uL (3.93-5.22); RDW 13.4 % (11.7-14.6); RDW-SD 45.9 fL
[2023-11-12] MEDS: ACETAMINOPHEN 1,000 MG/100 ML BTL 400 MG IVPB (23:20)
[2023-11-12] MEDS: Ondansetron 4 MG/2 ML VIAL IVP (23:21)
--- NOTE | 2023-11-12 23:26 | ED.GENADUL_ITS ---
Discharge Plan Disposition Patient Disposition: Critical Access Hospital Specific Critical Access Facility: [facility] Condition: Serious Discharge Details Clinical Impression: Abdominal pain Primary Care Provider: Sandra Abraham ED Provider: Viola Thompson Home Meds and New Rx's Prescriptions: No Action acetaminophen [Tylenol] 325 mg capsule 325 mg PO ONCE PRN Metamucil (sugar) Powder 1 tbsp PO DAILY PRN amlodipine 5 mg tablet 5 mg PO DAILY Qty: 90 3RF Probiotic 1 EACH capsule 1 ea PO PRN Varicella-Zoster Ge/As01b/Pf [Shingrix Vial Kit] 50 MCG INJ 50 mcg IM ONCE Qty: 1 1RF levothyroxine 50 mcg tablet 50 mcg PO DAILY Qty: 90 3RF Rx Instructions: Administer in the morning on an empty stomach, at least 30-60 minutes before food omeprazole 40 mg capsule,delayed release(DR/EC) See Rx Instructions .ROUTE .COMPLEX Qty: 90 3RF Dose Instruction: TAKE ONE CAPSULE BY MOUTH EVERY MORNING AT LEAST 30 MIN BEFORE FIRST MEAL Rx Instructions: TAKE ONE CAPSULE BY MOUTH EVERY MORNING AT LEAST 30 MIN BEFORE FIRST MEAL cholecalciferol (vitamin D3) 1,000 UNIT capsule 1,000 unit PO DAILY HPI General Mode of arrival: ambulatory . Date/Time Provider Initiated Documentation: 11/12/23 22:35 . Limitations to Documentation: no limitations . Information obtained by: patient . HPI Narrative: 78yo F with hx of HTN, GERD, hypothyroid, abdominal hernia surgery with revision/mesh replacement about 2 weeks ago, presenting with RUQ abdominal pain. Symptoms started about 30 minutes prior to arrival after having large dinner including ETOH and dessert. Pain is severe, sharp, radiates into her back. No alleviating or aggravating factors. Associated nausea, no vomiting. She is otherwise in her usual state of health with no fevers, chills, rash, chest pain, shortness of breath, or other concerns. Related Data Home Medications Medication Instructions Recorded Confirmed cholecalciferol (vitamin D3) 25 1,000 unit PO DAILY 02/13/13 07/29/23 mcg (1,000 unit) capsule Lactobacillus acidophilus 10 1 ea PO PRN 12/15/15 07/29/23 billion cell capsule (Probiotic) psyllium seed (sugar) oral powder 1 tbsp PO DAILY PRN 05/29/20 07/29/23 (Metamucil (sugar) oral powder) acetaminophen 325 mg capsule 325 mg PO ONCE PRN 11/24/22 07/29/23 (Tylenol) levothyroxine 50 mcg tablet 50 mcg PO DAILY #90 tab-caps 03/28/23 07/29/23 omeprazole 40 mg capsule,delayed See Rx Instructions .Route 07/11/23 07/29/23 release .COMPLEX #90 caps amlodipine 5 mg tablet 5 mg PO DAILY #90 tab-caps 07/29/23 07/29/23 Previous Rx's Medication Instructions Recorded levothyroxine 50 mcg tablet 50 mcg PO DAILY #90 tab-caps 03/28/23 omeprazole 40 mg capsule,delayed See Rx Instructions .Route 07/11/23 release .COMPLEX #90 caps amlodipine 5 mg tablet 5 mg PO DAILY #90 tab-caps 07/29/23 Allergies Allergy/AdvReac Type Severity Reaction Status Date / Time Penicillins Allergy Intermediate Skin Rash, Verified 07/29/23 10:48 V&D horse fly bites AdvReac Mild arms Uncoded 07/29/23 10:48 swelled seasonal AdvReac Mild Sneezing, Uncoded 07/29/23 10:48 coughing General Stated Complaint: Abd Prob NEETA: 3 Review of Systems Narrative: see HPI Exam Narrative Exam Narrative: General: Alert, moaning in pain Head: Normocephalic, atraumatic Neck: Trachea midline, ?Neck supple. ENT: ?MMM.? Cardiac: ?RRR, no murmurs appreciated Resp: No respiratory distress. CTAB. Abd: ?Soft, non-distended. RUQ TTP with no rebound or guarding. Negative Muprhy's. : ?No suprapubic tenderness. No CVA tenderness. Extremities: ?No deformities.? Neurologic: GCS 15. ? Moves all extremities freely against gravity Course Vital Signs Vital signs: Vital Signs Temperature 36.4 C L 11/12/23 22:37 Pulse 86 11/12/23 22:37 Respiratory Rate 22 11/12/23 22:37 Blood Pressure 168/94 H 11/12/23 22:37 Pulse Oximetry 97 11/12/23 22:37 Temperature 36.4 C L 11/12/23 22:37 Temperature Source Skin 11/12/23 22:37 Pulse 86 11/12/23 22:37 Respiratory Rate 22 11/12/23 22:37 Respiratory Effort Normal 11/12/23 22:46 Blood Pressure 168/94 H 11/12/23 22:37 Blood Pressure Position Sitting 11/12/23 22:37 Pulse Oximetry 97 11/12/23 22:37 Oxygen Delivery Method Room Air 11/12/23 22:37 Oxygen Flow Rate 0 11/12/23 22:37 Lab/Test Results Lab/Test Results: Laboratory Tests Range/Units 11/12/23 23:12 WBC (4.4-10.8) 10^3/uL 9.90 RBC (3.93-5.22) 10^6/uL 4.57 Hgb (11.2-15.7) g/dL 14.0 Hct (36.0-46.0) % 42.9 MCV (80-95) fL 94 MCH (27.0-33.0) pg 30.6 MCHC (32.0-36.0) % 32.6 RDW (11.7-14.6) % 13.4 Plt Count (130-400) 10^3/uL 263 MPV (8.0-11.0) fL 9.7 Immature Gran % % 0.2 Neutrophils % % 56.2 Lymphocytes % % 30.9 Monocytes % % 9.4 Eosinophils % % 2.9 Basophils % % 0.4 Nucleated RBC % (0.0-0.3) % 0.0 Absolute Neutrophils (1.2-6.7) 10^3/uL 5.56 Absolute Lymphocytes (1.2-3.4) 10^3/uL 3.06 Absolute Monocytes (0.1-0.8) 10^3/uL 0.93 H Absolute Eosinophils (0.0-0.7) 10^3/uL 0.29 Absolute Basophils (0.0-0.2) 10^3/uL 0.04 VBG Lactate (0.6-1.4) mmol/L 1.4 Medical Decision Making 78yo F with hx of HTN, GERD, hypothyroid, abdominal hernia surgery with revision/mesh replacement about 2 weeks ago, presenting with RUQ abdominal pain. Symptoms started about 30 minutes prior to arrival after having large dinner including ETOH and dessert. Pain is severe, sharp, radiates into her back. Systemically well. Hypertensive on arrival, vital signs otherwise reassuring. On exam she appears to be in significant discomfort, does have RUQ TTP with negative armas's. Overall presentation seems most consistent with biliary colic however given age and prior abdominal surgeries warrants evaluation with CT imaging regrettably CT here down. Unlikely aortic dissection or pulmonary embolism or ACS. Not septic. Given GI cocktaile, tylenol, toradol, zofran for symptoms. Labs as below, CBC with no leukocytosis or anemia, CMP with slight hypomag and no other significant abnormalities, normal LFTS, lactate normal, lipase normal, troponin negative. EKG SR, no ST segment or T wave abnormalities to suggest occluisve AL. UA ordered, awaiting sample. On reassessment continued pain; given 4mg IV morphine. Discussed with [facility]; accepted ED to ED for CT scan. Potentially back transfer to [facility] if no emergent interventions required. Lab Data Lab results reviewed: Yes I reviewed the patient's lab results. Labs: Laboratory Tests Range/Units 11/12/23 23:12 WBC (4.4-10.8) 10^3/uL 9.90 RBC (3.93-5.22) 10^6/uL 4.57 Hgb (11.2-15.7) g/dL 14.0 Hct (36.0-46.0) % 42.9 MCV (80-95) fL 94 MCH (27.0-33.0) pg 30.6 MCHC (32.0-36.0) % 32.6 RDW (11.7-14.6) % 13.4 Plt Count (130-400) 10^3/uL 263 MPV (8.0-11.0) fL 9.7 Immature Gran % % 0.2 Neutrophils % % 56.2 Lymphocytes % % 30.9 Monocytes % % 9.4 Eosinophils % % 2.9 Basophils % % 0.4 Nucleated RBC % (0.0-0.3) % 0.0 Absolute Neutrophils (1.2-6.7) 10^3/uL 5.56 Absolute Lymphocytes (1.2-3.4) 10^3/uL 3.06 Absolute Monocytes (0.1-0.8) 10^3/uL 0.93 H Absolute Eosinophils (0.0-0.7) 10^3/uL 0.29 Absolute Basophils (0.0-0.2) 10^3/uL 0.04 VBG Lactate (0.6-1.4) mmol/L 1.4 Sodium (136-145) mmol/L 143 Potassium (3.5-5.1) mmol/L 3.5 Chloride (98-107) mmol/L 106 Carbon Dioxide (21.0-32.0) mmol/L 26.9 Anion Gap (3-11) mmol/L 10.1 BUN (7-18) mg/dL 14 Creatinine (0.55-1.02) mg/dL 0.8 Est GFR (CKD-EPI 2020) (mL/min/1.73m2) 74.44 Glucose (74-106) mg/dL 128 H Calcium (8.5-10.1) mg/dL 9.4 Magnesium (1.8-2.4) mg/dL 1.6 L Total Bilirubin (0.2-1.0) mg/dL 0.21 AST (15-37) U/L 14 L ALT (14-59) U/L 16 Alkaline Phosphatase (46-116) U/L 75 Troponin I (< or =60) ng/L < 50 Total Protein (6.4-8.2) g/dL 8.0 Albumin (3.4-5.0) g/dL 3.6 Lipase (16-77) U/L 50 Quality:SDOH Health Related Social Needs: No Data to Display PFSH All Active Problems Abdominal pain (Acute) GERD (gastroesophageal reflux disease) (Chronic) Continue PPI indefinitely per [facility] [place]18[place] h/o esophageal ulcer & hiatal hernia Fibrocystic breast disease (FCBD) (Chronic) Hypothyroidism (Chronic) Osteopenia (Chronic) Essential hypertension (Chronic) Otosclerosis (Chronic) Sensorineural hearing loss (SNHL) (Chronic) Vitamin D deficiency (Chronic) Skin lesion of back (Acute) Obesity (Chronic) Hyperlipidemia, unspecified (Chronic) Statin intolerance Cochlear implant in place (Chronic) Right Hiatal hernia (Chronic) Small, per 03/18/2010 [place] [place] Low back pain (Acute) Hypomagnesemia (Acute) Steatosis of liver (Chronic) 09/22/2022 US: mild hepatic steatosis. LFTs always NL; plan to do further w/u if LFTs become elevated. Rotator cuff tear arthropathy of left shoulder (Acute) s/p left reverse total shoulder replacement on 11/12/22 Medical History (Updated 11/13/23 @ 00:03 by Viola Thompson MD) Fracture of right great toe Seborrheic keratosis (~11/2022) R upper back Positive self-administered antigen test for COVID-19 (~04/2022) Abdominal wall hernia S/p repair 11/24/2021 [facility] [place]icitis Traumatic tear of left rotator cuff Tubular adenoma of colon (09/12/17) Subfibular impingement of right lower extremity (12/15/15) Posterior tibial tendon dysfunction (PTTD) of right lower extremity (12/15/15) Esophageal ulcer without bleeding Per 12/17/2009 [place] [place] resolved with repeat EGD 03/18/2020 Surgical History History of appendectomy Status post hernia repair (11/24/21) [facility] [place]/P laparoscopic appendectomy (~10/18/20) S/P tubal ligation History of cochlear implant Right Family History Mother No problems noted. Father COPD (chronic obstructive pulmonary disease) Sister Essential hypertension Stroke Maternal Grandmother Essential hypertension Stroke Son Alcohol abuse Social History Smoking/Tobacco Use Status: Former Tobacco Use Quit Date: 05/23/89 Smoking risk assessment performed?: Yes Alcohol Intake: current Alcohol Intake frequency: a few times a week Drug use: Never Substance use type: does not use Adopted: No Caregiver/Support person: No Foster care: No Household members: spouse Housing: house Number of Children: 2 number of grandchildren: 1 Communication Needs: Corrective Lenses Education Level: college Do you need help understanding health information?: Rarely current occupation: Retired Pets and animals: Yes Pets and animals: cat(s) Sexually active: No Do you think of yourself as: straight/heterosexual Current gender identity: female What is your relationship status?: How often do you talk on the phone with friends or family?: twice per week How often do you get together with friends or relatives?: three or more times per week Do you belong to any clubs or organized social groups?: no Panel score (0-1 are the most socially isolated patients): 2 Duration: < 15 minutes/day Frequency: 1-2 times per week Seatbelt use: always Helmet use: Yes Drive intox or ride w/intox auto crane driver: No Water heater temp set <120 deg: Yes Working smoke detector in home: Yes Fire extinguisher in home: Yes Carbon monox detector in home: Yes Firearms in home: Yes Firearms unloaded and locked: Yes In current or past relationships, have you been: made to feel afraid Do you feel safe at home: Yes Do you feel safe in your relationship?: Yes
[2023-11-12 23:40] VITALS: BP 164/75; PULSE 69; PULSE 70; RESP 26; O2SAT 99
[2023-11-12 23:41] VITALS: PULSE 70; RESP 30; O2SAT 98
[2023-11-12 23:42] LABS: ALT 16 U/L (14-59); AST 14 U/L (15-37); Albumin 3.6 g/dL (3.4-5.0); Alkaline Phosphatase 75 U/L (46-116); Anion Gap 10.1 mmol/L (3-11); BUN 14 mg/dL (7-18); Bilirubin, Total 0.21 mg/dL (0.2-1.0); CO2 26.9 mmol/L (21.0-32.0); CREATININE 0.8 mg/dL (0.55-1.02); Calcium 9.4 mg/dL (8.5-10.1); Chloride 106 mmol/L (98-107); Estimated GFR 74.44 (mL/min/1.73m2); Glucose 128 mg/dL (74-106); Magnesium 1.6 mg/dL (1.8-2.4); Potassium 3.5 mmol/L (3.5-5.1); Sodium 143 mmol/L (136-145)
[2023-11-12 23:50] LABS: Troponin I < 50 ng/L (< or =60)
[2023-11-12 23:56] LABS: Lipase 50 U/L (16-77)
[2023-11-13] MEDS: MORPHine 4 MG/ML SYR IVP (00:10)
== END 2023-11-13 00:40 | disposition critical access hospital (66) ==
PROVIDERS: Emergency Provider Student in an Organized Health Care Education/Training Program; PCP Nurse Practitioner Family
DX: R10.11 Right upper quadrant pain (principal); Z98.890 Other specified postprocedural states
CPT/HCPCS: 80053; 83690; 93005; 96365; 96375; 99284; 83605; 83735; 84484; 85025; 93010; 99283; J0131; J1885; J2270; J2405

== ENCOUNTER 2023-11-15 14:30 | Outpatient (CLI) | payer MEDICARE, SELFPAY ==
--- NOTE | 2023-11-15 08:30 | DI.RAD_ITS ---
Exam(s) XR SHOULDER LT COMPLETE 2+V EXAM: XR SHOULDER LT COMPLETE 2+V INDICATION: F/U LEFT RTSA. COMPARISON: No exams were available for comparison TECHNIQUE: 2D digital imaging was performed. Three views. FINDINGS: Stable appearance reverse shoulder prosthesis. No abnormal bony lucencies are seen. DATA REPOSITORY: RADIATION DOSE DELIVERED:
== END 2023-11-15 14:31 | disposition home or self-care (01) ==
LOC: DIORS 14:31
PROVIDERS: PCP Nurse Practitioner Family; Visit Provider Student in an Organized Health Care Education/Training Program
DX: Z47.1 Aftercare following joint replacement surgery; Z96.612 Presence of left artificial shoulder joint
CPT/HCPCS: 99213; 73030

== ENCOUNTER → 2023-11-18 00:57 | Outpatient (CLI) | payer MEDICARE, SELFPAY ==
--- NOTE | 2023-11-18 07:15 | DI.US_ITS ---
Exam(s) US ABDOMEN LIMITED EXAM: US ABDOMEN LIMITED CLINICAL HISTORY: gallstone,RUQ PAIN,R10.11,K80.20 TECHNIQUE: Ultrasound abdomen performed using standard protocol. COMPARISON: US US ABDOMEN LIMITED from 09/22/2022 FINDINGS: Examination limited by overlying bowel gas. PANCREAS: Normal where visualized. LIVER: Mild increased echogenicity suggesting fatty infiltration. Hepatopetal flow in the Portal Vei n. The liver measures in 15.1 cm length. There is a 1.1 cm simple cyst in the liver. No follow-up is recommended. GALLBLADDER: No evidence of cholelithiasis. No evidence of wall thickening. No pericholecystic fluid identified. BILIARY SYSTEM: Common bile duct measures < 7 mm. No intrahepatic biliary ductal dilation. VELASCO'S SIGN: Negative. RIGHT KIDNEY: Kidney is normal in size. No evidence of renal calculi. No evidence of hydronephrosis. There is a 2.6 cm simple cyst in the right kidney. No follow-up is recommended. This was present o n the prior exam CT examination. ASCITES: None seen. IMPRESSION: No definite cholelithiasis or biliary ductal dilatation. DATA REPOSITORY:
== END ==
PROVIDERS: PCP Nurse Practitioner Family; Visit Provider Nurse Practitioner
DX: R10.11 Right upper quadrant pain (principal); K80.20 Calculus of gallbladder without cholecystitis without obstruction
CPT/HCPCS: 76705

== ENCOUNTER 2023-11-25 10:58 | Outpatient (CLI) | payer MEDICARE, SELFPAY ==
[2023-11-25 10:21] LABS: FREE T4 1.22 ng/dL (0.76-1.46)
[2023-11-25 10:24] LABS: TSH 2.56 uIU/Ml (0.36-3.74)
--- OUTSIDE RECORDS SUMMARY | 2023-11-25 11:00 | XMS_ITS | Continuity of Care Document ---
Author Name Unknown Organization [facility] Address [address] [place] [address] Care Team Providers Care Development Advisor Name Role Phone Sandra Abraham Primary Care Physician [phone] Encounter NCTY_ND Date(s): 11/13/23 - 11/13/23 [facility] [address] [place] [address] Discharge Disposition: Home or Self Care Attending Physician: Madan Laughlin MD Admitting Physician: Madan Laughlin MD Allergies, Adverse Reactions, Alerts No Known Allergies Vital Signs Most recent to oldest [Reference Range]: 1 2 3 Temperature Temporal Artery [36-38 Deg C] 36.8 Deg C (11/13/23 1:32 AM) Peripheral Pulse Rate [60-100 bpm] 68 bpm (11/13/23 4:00 AM) 59 bpm *LOW* (11/13/23 3:45 AM) 58 bpm *LOW* (11/13/23 3:30 AM) Heart Rate Monitored [60-100 bpm] 68 bpm (11/13/23 4:00 AM) 58 bpm *LOW* (11/13/23 3:45 AM) 59 bpm *LOW* (11/13/23 3:30 AM) Respiratory Rate [12-24 br/min] 16 br/min (11/13/23 4:00 AM) 15 br/min (11/13/23 3:45 AM) 16 br/min (11/13/23 3:30 AM) Blood Pressure [90-140/60-90 mmHg] 120/72mmHg (11/13/23 3:45 AM) 120/72mmHg (11/13/23 3:30 AM) 114/69mmHg (11/13/23 3:15 AM) Mean Arterial Pressure, Cuff [65-140 mmHg] 88 mmHg (11/13/23 3:45 AM) 88 mmHg (11/13/23 3:30 AM) 84 mmHg (11/13/23 3:15 AM) Social History Social History Type Response Tobacco Former tobacco user Tobacco Use:. Sex Female Hospital Discharge Instructions Patient Education 11/13/2023 02:49:51 Biliary Colic, Adult Biliary Colic, Adult Biliary colic is severe pain caused by a problem with the gallbladder. The gallbladder is a small organ in the upper right part of the abdomen. The gallbladder stores a digestive fluid produced in the liver (bile) that helps the body break down fat. Bile and other digestive enzymes are carried fromthe liver to the small intestine through tube-like structures called bile ducts. The gallbladder and the bile ducts form the biliary tract. Sometimes, hard deposits of digestive fluids (gallstones) form in the gallbladder and block the flow of bile from the gallbladder, causing biliary colic. This condition is also called a gallbladder attack. Gallstones can be as small as a grain of sand or as big as a golf ball. There could be just one gallstone in the gallbladder, or there could be many. What are the causes? This condition is usually caused by gallstones. Less often, a tumor could block the flow of bile from the gallbladder and trigger biliary colic. What increases the risk? The following factors may make you more likely to develop this condition: ??? Being female. ??? Having a family history of gallstones. ??? Being obese. ??? Losing weight suddenly or quickly. ??? Eating a diet that is high in calories, low in fiber, and rich in refined carbohydrates, such as white bread and white rice. ??? Having certain health conditions, such as: ??? An intestinal disease that affects nutrient absorption, such as Crohn's disease. ??? A metabolic condition, such as diabetes or metabolic syndrome. Metabolic syndrome occurs when someone has high blood pressure, high cholesterol, and diabetes. ??? A blood condition, such as hemolytic anemia or sickle cell disease. What are the signs or symptoms? The main symptom of this condition is severe pain in the upper right side of the abdomen. You may feel this pain below the chest but above the hip. This pain often occurs at night or after eating a meal that is high in fat. This pain may get worse for up to an hour and last as long as 12 hours. In most cases, the pain fades (subsides) within 2 hours. Other symptoms of this condition include: ??? Nausea and vomiting. ??? Pain under the right shoulder. How is this diagnosed? This condition is diagnosed based on your medical history, your symptoms, and a physical exam. You may also have tests, including: ??? Blood tests to rule out infection or inflammation of the bile ducts, gallbladder, pancreas, or liver. ??? Imaging studies, such as: ??? An ultrasound. ??? A CT scan. ??? An MRI. In some cases, you may need to have an imaging study done using a small amount of radioactive material (nuclear medicine) to confirm the diagnosis. How is this treated? This condition may be treated with medicines to: ??? Relieve your pain or nausea. ??? Dissolve the gallstones. It may take months or years before the gallstones are completely gone. If you have gallstones, or if you have a tumor in the gallbladder that is causing biliary colic, you may need surgery to remove the gallbladder (cholecystectomy). Follow these instructions at home: Eating and drinking ??? Drink enough fluid to keep your urine pale yellow. ??? Follow instructions from your health care provider about eating or drinking restrictions. Thesemay include avoiding: ??? Fatty, greasy, and fried foods. ??? Any foods that make the pain worse. ??? Overeating. ??? Having a large meal after not eating for a while. General instructions ??? Take ukxo-eaz-lmvjiui and prescription medicines only as told by your health care provider. ??? Keep all follow-up visits as told by your health care provider. This is important. How is this prevented? Steps to prevent this condition include: ??? Maintaining a healthy body weight. ??? Getting regular exercise. ??? Eating a healthy diet that is high in fiber and low in fat. ??? Limiting how much sugar and refined carbohydrates you eat. Contact a health care provider if: ??? Your pain lasts more than 5 hours. ??? You vomit. ??? You have a fever and chills. ??? Your pain gets worse. Get help right away if: ??? Your skin or the whites of your eyes look yellow (jaundice). ??? Your have tea-colored urine and light-colored stools (feces). ??? You are dizzy or you faint. Summary ??? Biliary colic is severe pain caused by a problem with the gallbladder. The gallbladder is a small organ in the upper right part of your abdomen. ??? Treatment for this condition may include medicine to relieve your pain or nausea, or medicine to slowly dissolve the gallstones. ??? If you have gallstones, or if you have a tumor in the gallbladder that is causing biliary colic, you may need surgery to remove the gallbladder (cholecystectomy). This information is not intended to replace advice given to you by your health care provider. Make sure you discuss any questions you have with your health care provider. Document Revised: 05/20/2020 Document Reviewed: 03/11/2020 [employer] Patient Education ?? 2022 [employer]. Physician Emergency department Note * Madan Laughlin MD: PERFORM Event Display: ED Note Physician Authored Date: [id number] MUMTAZ LYONS :1945 Age:78 years Sex:Female Visit Date:11/13/2023 Primary Care Physician: Sandra Abraham HPI 79-year-old female with a history of appendectomy, GERD, HTN, hypothyroidism, and abdominal hernia surgery with revision ~2 weeks ago at [facility] presents from [facility] for further evaluation of sharp, nonradiating right upper quadrant abdominal pain that began yesterday evening while the patient was eating dinner. Patient notes resolution of pain with morphine provided at [facility]. ?? Prior to transfer I discussed the patient???s case with Dr. Rod??Donna, the ED physician at [facility]. History consistent with that given above. Patient with right upper quadrant tenderness palpation on exam with the negative Amado sign. CT scanner is presently unavailable [facility] and this is felt to be indicated for completion of evaluation. Patient was accepted in the ER to ER transfer. ECG was verbally reported as nonischemic. ?? Studies obtained at [facility] at 23:12 notable for: WBC 9.0, Hb 14.0, lactic acid??1.4 sodium 143, K 3.5, AST 14, ALT 16, ALP 75, total bilirubin 0.21,lipase 50, troponin <50 (detection limit 60??ng/L) ?? ECG: SR 77 bpm, no CA segment depressions, CA interval 174 ms, no ST segment elevations or depressions, no hyperacute T waves or discordant T-wave inversions. ?? M/S/F/SocHx notable for: please see HPI; remainder reviewed with patient and in chart.? ROS: Negative constitutional, eye, cardiovascular, pulmonary, GI, , MSK, skin, neurologic, psychiatric, endocrine unless noted in the HPI. ?? Exam HR 66, RR 16, BP 130/80, T 36.8??C, SaO2 97% on room air. Gen:??Pleasant, non-toxic appearing, resting comfortably. HEENT: NC, AT, PEERL, EOMI. Resp: Clear to auscultation bilaterally, normal work of breathing, no accessory muscle usage. Card: Regular rate and rhythm with no murmurs, rubs, or gallops, extremities warm and well perfused.?? GI: Non-tender to palpation throughout all quadrants, non-distended, no rebound or guarding. : No suprapubic tenderness to palpation. MSK: No visible deformities, strength and tone without visually appreciable deficit. Skin: Normal color with no visible lesions. Neuro: alert and oriented?3, no facial asymmetry, vision and hearing WNL. Psych: Mood and affect appropriate. ?? Imaging CT Abd/Pelvis:?? 1.??7 cm collection within the left lower quadrant anterior abdominal wall subcutaneous fat, could indicate postoperative seroma with infected fluid or chronic hematoma also possibility.?? 2.??Minimal gallbladder sludge suggested possible gallstone in the gallbladder neck.?? 3.??Partially visualized nodule in the right middle lobe measures at least 6 mm. As per Fleischner Society 2017 guidelines for follow-up and management of pulmonary nodules: For patients at low risk (minimal or absent history of smoking and of other known risk factors), no routine follow-up. For patient at high risk (history of smoking or of other known risk factors), recommend optional CT at 12 months.? MDM Previous chart, nursing note, labs, imaging, and vitals reviewed.?? A:??79-year-old female with a history of appendectomy, GERD, HTN, hypothyroidism, and abdominal hernia surgery with revision ~2 weeks ago at [facility] presents from [facility] for further evaluation ofsharp, nonradiating right upper quadrant abdominal pain that began yesterday evening while the patient was eating dinner. ?? DDx: biliary disease (cholelithiasis, choledocholithiasis, cholangitis, cholecystitis), pancreatitis. ?? Evaluation: patient with sustained resolution of symptoms in the ER. Outside labs reviewed, these remain clinically relevant (repeat labs are not presently indicated). Reassuringly, the patient has laboratory studies (including CBC, CMP, lipase, and troponin with an acceptable limits and her lacticacid is within normal limits as well. The patient CT abdomen pelvis is without evidence of acute pathology, however note was made of a seroma versus potentially infected fluid versus hematoma in the left lower abdominal wall, there is no significant tenderness to palpation this area, no erythema, or warmth, given the absence of fever, leukocytosis, as well as the patient???s stable clinical trajectory since her surgery, this is felt to represent a noninfectious process. With respect to the patient???s right upper quadrant pain, there is no clear evidence of cholecystitis, cholangitis, or choledocholithiasis, however there is a possibility of intermittent biliary colic based upon the symptoms and the possibility of a gallstone in the gallbladder neck. Reassuringly, relevant laboratory studies are WNL. The patient was discharged with return to care precautions and PCP follow-up for ultrasound recommended. ?? Impression: right upper quadrant pain (resolved). Electronically Signed on 11/13/2023 03:47 EDT Madan Laughlin MD Emergency department Discharge instructions * Madan Laughlin MD: PERFORM Event Display: ED Discharge Information Authored Date: [id number] MUMTAZ LYONS :1945 Age:78 years Sex:Female Visit Date:11/13/2023 Primary Care Physician: Sandra AbrahamP-C Discharge Instructions We would like to thank you for allowing us to assist you with your healthcare needs. The following includes patient education materials and information regarding your injury/illness. ?? You were seen at [facility] Emergency Department for evaluation of??abdominal pain. At the time of your evaluation you are suspected to have biliary colic, this is intermittent abdominal pain secondary to gallstones. If you have new or worsening symptoms, please go to the nearest emergency department. Otherwise please follow-up your primary care physician on Tuesday or Tuesday for repeat evaluation as well as consideration of outpatient ultrasound to confirm the possibility of gallstones your also noted to have a partially visualized nodule in your right lung. Please discuss this with your primary care physician as this may warrant ongoing follow-up imaging. A copy of your CT repo rt summary is enclosed at the end of this document..??Please read and follow all of the instructions below. ?? When calling for follow-up care, please make the office aware that this follow- up is from your recent emergency room visit.? Your care today was limited to identifying and treating emergent medical problems only. Many peoplehave subtle differences in their test results that require follow up with their outpatient physician(s) to correctly determine if this represents a normal variation or concerning abnormality with respect to your specific health.??The care given to you today was limited to identifying and treating emergent medical problems - you need to request a copy of all of your medical records from today's visit and follow up with your outpatient physician(s) to review both today's visit and your overall health. If you have any new symptoms or if you are at all concerned about your health please return immediately to the emergency department. ?? Prescriptions: If you are uninsured or have financial difficulties with filling your prescription(s), you may consider using a free pharmacy discount service such as [employer] ([employer]) or [employer] ([employer]). These services allow you to search for a medication on your phone (or computer) and obtain a coupon that usually has a significant discount from the list healy at a pharmacy. Your physician does not have a financial relationship with either of these services. You may also wish to speak with your physician to determine if lower cost prescriptions are possible. ?? CT Abd/Pelvis:?? 1.??7 cm collection within the left lower quadrant anterior abdominal wall subcutaneous fat, could indicate postoperative seroma with infected fluid or chronic hematoma also possibility.?? 2.??Minimal gallbladder sludge suggested possible gallstone in the gallbladder neck.?? 3.??Partially visualized nodule in the right middle lobe measures at least 6 mm. As per Fleischner Society 2017 guidelines for follow-up and management of pulmonary nodules: For patients at low risk (minimal or absent history of smoking and of other known risk factors), no routine follow-up. For patient at high risk (history of smoking or of other known risk factors), recommend optional CT at 12 months.? Discharge Vitals Temperature??(Temporal Artery) 98.2 ??F (36.8 ??C) Heart Rate??(Monitored) 66 Respiratory Rate?? 16 Blood Pressure?? 130/80?? SpO2?? 97% Allergies No Known Allergies You were treated today on an emergency basis; it may be jones to contact your primary care provider to notify them of your visit today. You may have been referred to your regular doctor or a specialist, please follow up as instructed. If your condition worsens or you can't get in to see the doctor, contact the Emergency Department. Education Materials Biliary Colic, Adult Biliary colic is severe pain caused by a problem with the gallbladder. The gallbladder is a small organ in the upper right part of the abdomen. The gallbladder stores a digestive fluid produced in the liver (bile) that helps the body break down fat. Bile and other digestive enzymes are carried fromthe liver to the small intestine through tube-like structures called bile ducts. The gallbladder and the bile ducts form the biliary tract. Sometimes, hard deposits of digestive fluids (gallstones) form in the gallbladder and block the flow of bile from the gallbladder, causing biliary colic. This condition is also called a gallbladder attack. Gallstones can be as small as a grain of sand or as big as a golf ball. There could be just one gallstone in the gallbladder, or there could be many. What are the causes? This condition is usually caused by gallstones. Less often, a tumor could block the flow of bile from the gallbladder and trigger biliary colic. What increases the risk? The following factors may make you more likely to develop this condition: ? Being female. ? Having a family history of gallstones. ? Being obese. ? Losing weight suddenly or quickly. ? Eating a diet that is high in calories, low in fiber, and rich in refined carbohydrates, such as white bread and white rice. ? Having certain health conditions, such as: ? An intestinal disease that affects nutrient absorption, such as Crohn's disease. ? A metabolic condition, such as diabetes or metabolic syndrome. Metabolic syndrome occurs when someone has high blood pressure, high cholesterol, and diabetes. ? A blood condition, such as hemolytic anemia or sickle cell disease. What are the signs or symptoms? The main symptom of this condition is severe pain in the upper right side of the abdomen. You may feel this pain below the chest but above the hip. This pain often occurs at night or after eating a meal that is high in fat. This pain may get worse for up to an hour and last as long as 12 hours. In most cases, the pain fades (subsides) within 2 hours. Other symptoms of this condition include: ? Nausea and vomiting. ? Pain under the right shoulder. How is this diagnosed? This condition is diagnosed based on your medical history, your symptoms, and a physical exam. You may also have tests, including: ? Blood tests to rule out infection or inflammation of the bile ducts, gallbladder, pancreas, or liver. ? Imaging studies, such as: ? An ultrasound. ? A CT scan. ? An MRI. In some cases, you may need to have an imaging study done using a small amount of radioactive material (nuclear medicine) to confirm the diagnosis. How is this treated? This condition may be treated with medicines to: ? Relieve your pain or nausea. ? Dissolve the gallstones. It may take months or years before the gallstones are completely gone. If you have gallstones, or if you have a tumor in the gallbladder that is causing biliary colic, you may need surgery to remove the gallbladder (cholecystectomy). Follow these instructions at home: Eating and drinking ? Drink enough fluid to keep your urine pale yellow. ? Follow instructions from your health care provider about eating or drinking restrictions. These mayinclude avoiding: ? Fatty, greasy, and fried foods. ? Any foods that make the pain worse. ? Overeating. ? Having a large meal after not eating for a while. General instructions ? Take nxmy-nec-oewwcgk and prescription medicines only as told by your health care provider. ? Keep all follow-up visits as told by your health care provider. This is important. How is this prevented? Steps to prevent this condition include: ? Maintaining a healthy body weight. ? Getting regular exercise. ? Eating a healthy diet that is high in fiber and low in fat. ? Limiting how much sugar and refined carbohydrates you eat. Contact a health care provider if: ? Your pain lasts more than 5 hours. ? You vomit. ? You have a fever and chills. ? Your pain gets worse. Get help right away if: ? Your skin or the whites of your eyes look yellow (jaundice). ? Your have tea-colored urine and light-colored stools (feces). ? You are dizzy or you faint. Summary ? Biliary colic is severe pain caused by a problem with the gallbladder. The gallbladder is a small organ in the upper right part of your abdomen. ? Treatment for this condition may include medicine to relieve your pain or nausea, or medicine to slowly dissolve the gallstones. ? If you have gallstones, or if you have a tumor in the gallbladder that is causing biliary colic, you may need surgery to remove the gallbladder (cholecystectomy). This information is not intended to replace advice given to you by your health care provider. Make sure you discuss any questions you have with your health care provider. Document Revised: 05/20/2020 Document Reviewed: 03/11/2020 [employer] Patient Education ?? 2022 [employer]. Patient/Insights Analyst Signature Patient Name:MUMTAZ LYONS I have received this information and my questions have been answered. Patient/Insights Analyst Name: Patient/Insights Analyst Signature: Relationship to Patient: Witness Name/Signature: Date: Electronically Signed on: 11/13/2023 03:50 EDTSigned by:KYLIE Patient Care team information Care Team Personnel Name: Sandra Abraham Position: No Access Member Role: Primary Care Physician Address: [address] [address] [address] Care Team Related Persons Name: BETTYE ELLIOTT Address: Home [address] [place] [address], [phone] Name: SAVANAH LYONS Address: Home [address] [place] [address], [phone]
== END 2023-11-25 10:59 | disposition home or self-care (01) ==
LOC: LBO 10:59
PROVIDERS: PCP Nurse Practitioner Family; Visit Provider Nurse Practitioner Family
DX: E03.9 Hypothyroidism, unspecified (principal)
CPT/HCPCS: 36415; 84439; 84443

== ENCOUNTER → 2023-12-08 01:57 | Outpatient (CLI) | payer MEDICARE, SELFPAY ==
--- NOTE | 2023-12-08 08:23 | DI.CT_ITS ---
Exam(s) CT CHEST WO EXAM: CT CHEST WO CLINICAL HISTORY: lung nodule,former smoker, z87.891,r91.1. TECHNIQUE: Multi planar reconstructions were performed. CONTRAST MATERIAL: None FINDINGS: CHEST: LUNGS: There are 2 small fissure related nodules in the right lung, measuring 6 and 7 mm. These are evident on the uppermost images of a prior abdominal CT scan performed at outside institution 024. No other significant focal lung findings seen. MEDIASTINUM: There is no obvious hilar nor mediastinal adenopathy. Visualized thyroid unremarkable.No obvious axillary adenopathy CARDIAC: Heart size is normal. There is no pericardial effusion.Caliber of the thoracic aorta is upp er normal VISUALIZED UPPER ABDOMEN: OSSEOUS: Left shoulder prosthesis.No fractures. No significant osseous lesions. IMPRESSION: 1. There are 2 small fissure related nodules in the right lung as described above.. These appear unc hanged in size from uppermost images of abdominal CT scan 05/30/2023 performed at [facility]. 2. No confluent infiltrates nor pleural effusions nor intrathoracic adenopathy. 3. Recommend repeat CT scan in 1 year, earlier if clinically indicated. RADIATION DOSE DELIVERED: Total DLP DATA REPOSITORY: All CT scans at this facility are submitted to the National Radiology Data Registry (NRDR) Dose Index Registry (DIR) with the [employer] (ACR). RADIATION OPTIMIZATION: All CT scans at this facility use at least one of these dose optimization te chniques: automated exposure control; mA and/or kV adjustment per patient size (includes targeted exa ms where dose is matched to clinical indication); or iterative reconstruction.
== END ==
PROVIDERS: PCP Nurse Practitioner Family; Visit Provider Nurse Practitioner
DX: R91.1 Solitary pulmonary nodule (principal); Z87.891 Personal history of nicotine dependence
CPT/HCPCS: 71250

== ENCOUNTER 2023-12-22 11:52 | Outpatient (REF) | payer MEDICARE, SELFPAY ==
[2023-12-22 15:40] LABS: Bacteria Few HPF (Negative); C & S Indicated? C&S Done As Ordered; Crystals Negative HPF (Negative); Epithelial Cells Rare HPF (Negative); Mucus Negative (Negative); RBC 0-2 HPF (0-2)
== END 2023-12-22 11:53 | disposition home or self-care (01) ==
LOC: LBN 11:52
PROVIDERS: PCP Nurse Practitioner Family; Visit Provider Nurse Practitioner Family
DX: M54.9 Dorsalgia, unspecified (principal); R31.29 Other microscopic hematuria
CPT/HCPCS: 87077; 81015; 87086; 87186

== ENCOUNTER 2024-09-24 02:36 | Outpatient (CLI) | payer MEDICARE, SELFPAY ==
--- NOTE | 2024-09-24 15:07 | W.NUTRFU ---
Date of service: 09/24/24 Time of Service: 14:00 Nutrition Note NOTE: Jennifer referred to today's nutrition visit for help with goals for weight mgt and addressing fatty liver changes. Comes with Amira - hourly team members/helper BMI 09/26/24 was 36.4. wt hx reveals 7.7kg wt gain over the last 2 years. Pt reports breakfast lately is half a banana with Marcelo PB and cranberries. Might coast through lunch or lightly snack and then 5:30 dinner. reports last night was frozen chicken strips with broccoli and diet coke. Bedtime usually by 7pm. Discussed pitfalls in her usual diet - grazing pattern, inadequate fiber intake, probable low protein intake most of the day outside of dinner meal and low protein breakfast. Discussed importance of fiber and plant protein foods. Also discussed protein adequacy to slow age-related muscle loss and resistance exercise for help with insulin resistance. milk thistle can be considered for liver health and to help prevent buildup of ROS in hepatocytes. Shared sample menus with shi and they have my contact info should they have any questions or need any more resources/follow up appts. Time Spent in Nutritional Counseling and Treatment: 40 min
== END 2024-09-24 02:37 | disposition home or self-care (01) ==
LOC: DS 02:36
PROVIDERS: PCP Nurse Practitioner Family; Visit Provider Dietitian, Registered
DX: E66.9 Obesity, unspecified (principal); K76.0 Fatty (change of) liver, not elsewhere classified
CPT/HCPCS: 00123; 97802

== ENCOUNTER 2024-10-08 02:30 | Outpatient (CLI) | payer MEDICARE, SELFPAY ==
--- NOTE | 2024-10-08 06:45 | DI.NM_ITS ---
APPROVED REPORT Exam: Pharmacologic Patient Location: Out-Patient Room/Bed: Stress Nurse: Melissa Castro RN Ordering Provider:BRENDA BERMAN, Contact Number: [phone] BMI: 36.46 Baseline Rhythm: Sinus Rhythm Indications: SOB on exertion w/o associated symptoms Medical History Medical History: obesity, GERD, HTN, low back pain, HLD, hypomagnesemia, hypothyroid Cardiac Medications: amlodipine, levothyroxine, magnesium oxide, omeprazole Allergies: PCN, insect venom Cardiac Risk Factors: HTN, HLD, former smoker, obesity Previous Cardiac Procedures: none Pretest Chest Pain Characteristics: No chest pain Exercise History: Indeterminate Physical Disabilities: n/a Lung Sounds: Clear to auscultation Heart Sounds: Regular Stress Test Details Test: Pharmacologic stress was paired with low level exercise. Reason for pharmacologic stress test: physical limitation. Nuclear Acquisition: Rest Tc-99m/Stress Tc-99m 1 day Rest Isotope: Tc-99m Sestamibi. Dose: 10.0 Date: 10/08/2024 Injection Time: 0925 Stress Isotope: Tc-99m Sestamibi. Dose: 30.0 Date: 10/08/2024 Injection Time: 1115 HR Resting HR Supine: 60 bpm Max Heart Rate (APMHR): 139 bpm Resting HR Standin bpm Target HR (85% APMHR): 118 bpm Max HR Achieved: 106 bpm % of APMHR: 76 Recovery HR: 66 bpm BP Resting BP Supine: 138/78 mmHg Resting BP Standin/88 mmHg Max BP: 152/68 mmHg Recovery BP: 122/70 mmHg ECG Resting ECG: Sinus Rhythm Ectopy: none Stress ECG: Sinus Tachycardia ST Change: Nondiagnostic low heart rate Arrhythmia: none Recovery ECG: Sinus Rhythm Recovery ST Change: Nondiagnostic low heart rate Recovery Arrhythmia: rare PACs Clinical Stress Symptoms: Leg Fatigue, Dyspnea Angina Score: None Rate Pressure Product: [id number] Stress ECG Conclusion 1. Resting electrocardiogram showed low voltage but was otherwise normal 2. Patient underwent testing using a combination of low-level exercise and pharmacologic stress with regadenoson 3. Peak heart rate achieved was 76% of maximal predicted for age 4. The electrocardiographic portion of the test was nondiagnostic 5. There were no significant dysrhythmias 6. See MPI report Stress Test Summary STAGE HR BP SpO2 Symptoms NOTES Supine 60 138/78 95 Standing 71 144/88 1 min post Lexiscan injection 94 152/68 94 mild SOB, legs fatigue 3 min post Lexiscan injection 67 140/70 96 6 min post Lexiscan injection 66 122/70 MPI Conclusion Myocardial perfusion is normal. There is no ischemia or evidence of prior infarction Ejection fraction is 65% with normal wall motion
[2024-10-08] MEDS: Regadenoson 0.4 MG/5 ML SYR IVP (11:15)
== END 2024-10-08 02:50 ==
LOC: DI 02:30
PROVIDERS: PCP Nurse Practitioner Family; Visit Provider Internal Medicine Cardiovascular Disease
DX: R06.09 Other forms of dyspnea
CPT/HCPCS: 78452; 93016; 93018; 93017; J2785

== ENCOUNTER 2024-10-10 02:52 | Outpatient (CLI) | payer MEDICARE, SELFPAY ==
[2024-10-10 08:40] LABS: HCT 47.5 % (36.0-46.0); HGB 15.7 g/dL (11.2-15.7); MCHC 33.1 % (32.0-36.0); MCV 94 fL (80-95); MPV 10.1 fL (8.0-11.0); Platelet Count 222 10^3/uL (130-400); RBC 5.06 10^6/uL (3.93-5.22); RDW 13.9 % (11.7-14.6); RDW-SD 47.4 fL; WBC 7.67 10^3/uL (4.4-10.8)
[2024-10-10 09:07] LABS: ALT 24 U/L (14-59); AST 22 U/L (15-37); Albumin 3.8 g/dL (3.4-5.0); Alkaline Phosphatase 63 U/L (46-116); Anion Gap 8.2 mmol/L (3-11); BUN 11 mg/dL (7-18); Bilirubin, Total 0.5 mg/dL (0.2-1.0); CO2 24.8 mmol/L (21.0-32.0); CREATININE 0.6 mg/dL (0.55-1.02); Calcium 9.3 mg/dL (8.5-10.1); Calculated LDL 135 mg/dL (<100); Chloride 107 mmol/L (98-107); Cholesterol 217 mg/dL (<200); Estimated GFR 90.12 (mL/min/1.73m2); Glucose 91 mg/dL (74-106); HDL Cholesterol 64 mg/dL (>or=50); Potassium 3.8 mmol/L (3.5-5.1); Sodium 140 mmol/L (136-145); TSH (W/Ref FT4) 2.67 uIU/mL (0.36-3.74); Total Protein 8.1 g/dL (6.4-8.2); Triglyceride 93 mg/dL (<150)
== END 2024-10-10 02:53 | disposition home or self-care (01) ==
PROVIDERS: PCP Nurse Practitioner Family; Referring Provider Nurse Practitioner Family; Visit Provider Nurse Practitioner Family
DX: I10 Essential (primary) hypertension (principal); R06.02 Shortness of breath; E78.5 Hyperlipidemia, unspecified; E03.9 Hypothyroidism, unspecified
CPT/HCPCS: 36415; 80053; 80061; 85027; 84443

== ENCOUNTER 2024-11-09 20:02 | Emergency (ER) | payer MEDICARE, SELFPAY ==
[2024-11-09 20:08] VITALS: BP 130/90; PULSE 111; RESP 20; TEMP 36.7; O2SAT 94
[2024-11-09 20:19] VITALS: BP 130/90; PULSE 111; RESP 20; TEMP 36.7; O2SAT 94
--- NOTE | 2024-11-09 20:26 | W.ED.GENAD ---
Discharge Plan Disposition Patient Disposition: Home Condition: Stable Discharge Details Clinical Impression: Acute UTI, Abdominal pain Primary Care Provider: Laurel Rincon ED Provider: Kimberly Lloyd Home Meds and New Rx's Prescriptions: New sulfamethoxazole-trimethoprim [Bactrim DS] 800-160 mg tablet 1 tab PO BID 10 Days Qty: 20 0RF No Action acetaminophen [Tylenol] 325 mg capsule 650 mg PO ONCE PRN acetaminophen [Tylenol Arthritis Pain] 650 mg tablet extended release 650 mg PO Q12H Align (B.infantis) 4 mg capsule 4 mg PO DAILY omeprazole 20 mg capsule,delayed release(DR/EC) 20 mg PO QDAY Qty: 90 3RF ibuprofen 200 mg tablet 400 mg PO Q6H PRN Varicella-Zoster Ge/As01b/Pf [Shingrix Vial Kit] 50 MCG INJ 50 mcg IM ONCE Qty: 1 1RF levothyroxine 50 mcg tablet 50 mcg PO DAILY Qty: 90 3RF Rx Instructions: Administer in the morning on an empty stomach, at least 30-60 minutes before food amlodipine 5 mg tablet See Rx Instructions .ROUTE .COMPLEX Qty: 90 3RF Dose Instruction: TAKE ONE TABLET BY MOUTH EVERY DAY Rx Instructions: TAKE ONE TABLET BY MOUTH EVERY DAY magnesium oxide 250 mg magnesium tablet See Rx Instructions .ROUTE .COMPLEX Qty: 30 3RF Dose Instruction: TAKE ONE TABLET BY MOUTH EVERY DAY Rx Instructions: TAKE ONE TABLET BY MOUTH EVERY DAY cholecalciferol (vitamin D3) 1,000 UNIT capsule 1,000 unit PO DAILY Discharge Instructions Instructions: Abdominal Pain, Adult ED, Urinary Tract Infection, Adult ED Additional Instructions: This time it appears you have a urinary tract infection. You were given antibiotic for this close take your yogurt or probiotic twice daily as directed please finish the entire course of the antibiotic. CT abdomen pelvis shows nothing acute in the abdomen. Follow up with primary care provider in 3-5 days. Return to ED sooner if any worsening abdominal pain, nausea vomiting fever or concerns. Referrals: Laurel Rincon APRN [Primary Care Provider, Family Practice] - 5 days HPI General Mode of arrival: ambulatory. Date/Time Provider Initiated Documentation: 11/09/24 20:07. Limitations to Documentation: no limitations. Information obtained by: patient, RN notes reviewed and old records reviewed. HPI Narrative: 79-year-old female presents to the ER with a chief complaint of right lower quadrant abdominal pain which began just prior to arrival after eating dinner. Patient reports sharp stabbing pain that is worse with standing. Also reports some intermittent back pain and some upper quadrant abdominal pain intermittently. Denies any nausea vomiting. Does have a history of gallstones and appendectomy. Does have high cholesterol hypothyroidism otherwise generally healthy. Other history includes tubular adenoma of the colon, esophageal ulcer without bleeding, abdominal wall hernia she has also had a hernia repair and a tubal ligation. Related Data Home Medications ?Medication ?Instructions ?Recorded ?Confirmed cholecalciferol (vitamin D3) 25 1,000 unit PO DAILY 02/13/13 11/09/24 mcg (1,000 unit) capsule acetaminophen 325 mg capsule 650 mg PO ONCE PRN 11/25/23 11/09/24 (Tylenol) ibuprofen 200 mg tablet 400 mg PO Q6H PRN 11/25/23 11/09/24 levothyroxine 50 mcg tablet 50 mcg PO DAILY #90 tab-caps 04/06/24 11/09/24 acetaminophen 650 mg 650 mg PO Q12H 05/08/24 11/09/24 tablet,extended release (Tylenol Arthritis Pain) amlodipine 5 mg tablet See Rx Instructions .Route 07/09/24 11/09/24 .COMPLEX #90 tabs magnesium oxide See Rx Instructions .Route 07/31/24 11/09/24 .COMPLEX #30 tabs Bifidobacterium infantis 4 mg 4 mg PO DAILY 08/21/24 11/09/24 capsule (Align (B.infantis)) omeprazole 20 mg capsule,delayed 20 mg PO QDAY #90 caps 08/21/24 11/09/24 release sulfamethoxazole 800 1 tab PO BID 10 days #20 tabs 11/09/24 mg-trimethoprim 160 mg tablet (Bactrim DS) Previous Rx's ?Medication ?Instructions ?Recorded levothyroxine 50 mcg tablet 50 mcg PO DAILY #90 tab-caps 04/06/24 amlodipine 5 mg tablet See Rx Instructions .Route 07/09/24 .COMPLEX #90 tabs magnesium oxide See Rx Instructions .Route 07/31/24 .COMPLEX #30 tabs omeprazole 20 mg capsule,delayed 20 mg PO QDAY #90 caps 08/21/24 release sulfamethoxazole 800 1 tab PO BID 10 days #20 tabs 11/09/24 mg-trimethoprim 160 mg tablet (Bactrim DS) Allergies Allergy/AdvReac Type Severity Reaction Status Date / Time Penicillins Allergy Intermediate Skin Rash, Verified 11/09/24 20:18 V&D insect venom Allergy Swelling/Ed Verified 11/09/24 20:18 carlos General Stated Complaint: Abd Prob NEETA: 3 Review of Systems All systems reviewed & are unremarkable except as noted in HPI and below Gastrointestinal Gastrointestinal: Reports abdominal pain Exam Narrative Exam Narrative: Constitutional: Alert and oriented x3. Appears stated age. Normal body habitus. Head: Normocephalic, no trauma. Eyes: Pupils PERRL, Red reflex noted, EOM's intact. Eyelids symmetrical without lesions, discharge, or swelling. ENT: Bilateral TM's WNL, External ear normal to inspection, no mastoid TTP, swelling, or erythema, Nasal turbinates WNL, no nasal discharge. Normal dentition, Posterior pharynx WNL, no exudate. Chest: RRR, Normal S1, S2, distal pulses intact. Resp: Lungs clear to auscultation bilaterally, no wheezes, rales, or rhonchi. Abdomen: Soft, non-distended, Normoactive bowel sounds all 4 quads. Musculoskeletal: Normal gait, Moves all 4 extremities without difficulty. Skin: No suspicious rashes or lesions. Capillary refill less than 2 sec. Neurologic: Cranial nerves II-XII intact. Alert and oriented x 3. Motor: No deficits noted. Sensory: Intact bilaterally all 4 extremities. Hematologic/Lymphatic: No ecchymosis, no lymphadenopathy. Course Vital Signs Vital signs: Vital Signs Temperature 36.7 C 11/09/24 20:08 Pulse 111 H 11/09/24 20:08 Respiratory Rate 11/09/24 20:08 Blood Pressure 130/90 11/09/24 20:08 Pulse Oximetry 94 11/09/24 20:08 Temperature 36.7 C 11/09/24 20:19 Temperature Source Tympanic 11/09/24 20:19 Pulse 111 H 11/09/24 20:19 Respiratory Rate 20 11/09/24 20:19 Blood Pressure 130/90 11/09/24 20:19 Blood Pressure Position Sitting 11/09/24 20:19 Pulse Oximetry 94 11/09/24 20:19 Oxygen Delivery Method Room Air 11/09/24 20:19 Oxygen Flow Rate 0 06/20/25 20:19 Pain Level 8 11/09/24 20:19 Medical Decision Making 79-year-old female presents to the ER with a chief complaint of right lower quadrant abdominal pain which began just prior to arrival after eating dinner. Patient reports sharp stabbing pain that is worse with standing. Also reports some intermittent back pain and some upper quadrant abdominal pain intermittently. Denies any nausea vomiting. Does have a history of gallstones and appendectomy. Does have high cholesterol hypothyroidism otherwise generally healthy. Other history includes tubular adenoma of the colon, esophageal ulcer without bleeding, abdominal wall hernia she has also had a hernia repair and a tubal ligation. CBC, CMP, lipase, CT abd/ pelvis, urinalysis ordered. Urinalysis shows positive nitrates moderate blood, 20-50 WBCs, CT abdomen pelvis is pending at this time. I do suspect urinary tract infection given Bactrim here in the department and prescription for [address] abdomen pelvis shows no acute abnormality. Labs are noted below. Mild leukocytosis with white count of 12.3. Patient discharged in hemodynamically stable condition alert and oriented. This text was generated using [employer] system, please disregard any oddities of phrase or misspellings. Medical Records Medical records reviewed: Yes I reviewed the patient's medical records. Imaging Data Radiologic Study: Imaging: CT Scan Radiologist's impression: Reproductive: The uterus is unremarkable. Bones/joints: The lumbar spine demonstrates moderate degenerative changes at multiple levels. Moderate disc space narrowing more prominent at L4 through S1. L4/L5 disc space narrowing with posterior disc bulge. L5/S1 disc space narrowing with posterior disc bulge. Soft tissues: Soft tissues are unremarkable as visualized. IMPRESSION: No acute findings. Appendix is not seen but there is no pericecal inflammatory change. Thank you for allowing us to participate in the care of your patient. Dictated and Authenticated by: Judith Farley MD Lab Data Lab results reviewed: Yes I reviewed the patient's lab results. Labs: 11/09/24 21:18 Urine - Reflex from Ua Urine Culture - Pending Laboratory Tests Range/Units 11/09/24 11/09/24 21:16 21:18 WBC (4.4-10.8) 10^3/uL 12.37 H RBC (3.93-5.22) 10^6/uL 4.92 Hgb (11.2-15.7) g/dL 15.6 Hct (36.0-46.0) % 45.2 MCV (80-95) fL 92 MCH (27.0-33.0) pg 31.7 MCHC (32.0-36.0) % 34.5 RDW (11.7-14.6) % 13.5 Plt Count (130-400) 10^3/uL 230 MPV (8.0-11.0) fL 9.6 Immature Gran % % 0.3 Neutrophils % % 60.3 Lymphocytes % % 28.2 Monocytes % % 7.5 Eosinophils % % 3.1 Basophils % % 0.6 Nucleated RBC % (0.0-0.3) % 0.0 Absolute Neutrophils (1.2-6.7) 10^3/uL 7.46 H Absolute Lymphocytes (1.2-3.4) 10^3/uL 3.49 H Absolute Monocytes (0.1-0.8) 10^3/uL 0.93 H Absolute Eosinophils (0.0-0.7) 10^3/uL 0.38 Absolute Basophils (0.0-0.2) 10^3/uL 0.07 Sodium (136-145) mmol/L 139 Potassium (3.5-5.1) mmol/L 3.8 Chloride (98-107) mmol/L 103 Carbon Dioxide (21.0-32.0) mmol/L 23.5 Anion Gap (3-11) mmol/L 12.5 H BUN (7-18) mg/dL 16 Creatinine (0.55-1.02) mg/dL 0.7 Est GFR (CKD-EPI 2020) (mL/min/1.73m2) 86.83 Glucose (74-106) mg/dL 112 H Calcium (8.5-10.1) mg/dL 9.5 Magnesium (1.8-2.4) mg/dL 1.8 Total Bilirubin (0.2-1.0) mg/dL 0.3 AST (15-37) U/L 21 ALT (14-59) U/L 24 Alkaline Phosphatase (46-116) U/L 81 Total Protein (6.4-8.2) g/dL 8.5 H Albumin (3.4-5.0) g/dL 4.1 Lipase (<78) U/L 39 Urine Color (Yellow) Yellow Urine Clarity (Clear) Clear Urine pH (5-8) 5.0 Ur Specific Waller (1.005-1.025) 1.025 Urine Protein (Neg-Trace) mg/dL Negative Urine Ketones (Negative) mg/dL Trace H Urine Blood (Negative) Moderate H Urine Nitrite (Negative) Positive H Urine Bilirubin (Negative) Negative Urine Urobilinogen (Up to 0.2) mg/dL 0.2 Ur Leukocyte Esterase (Negative) Trace H Urine RBC (0-2) HPF 5-10 H Urine WBC (0-5) HPF 20-50 H Ur Epithelial Cells (Negative) HPF Few Urine Crystals (Negative) HPF Negative Urine Bacteria (Negative) HPF Packed Urine Casts (Negative) LPF Negative Urine Mucus (Negative) Negative Ur Culture Indicated? Yes Urine Glucose (Negative) mg/dL Negative PFSH All Active Problems Abdominal pain (Acute) Acute UTI (Acute) Balance problem (Acute) Shortness of breath on exertion (Acute) Obesity (BMI 30-39.9) (Acute) Stress at home (Acute) Lung nodule (Acute) 2 fissure nodules in the right lung appear unchanged from abdominal CT in May [address] scan in 1 year Light headed (Acute) GERD (gastroesophageal reflux disease) (Chronic) Continue PPI indefinitely per [facility] (03/18/2010); h/o esophageal ulcer & hiatal hernia Fibrocystic breast disease (FCBD) (Chronic) Hypothyroidism (Chronic) Osteopenia (Chronic) Essential hypertension (Chronic) Otosclerosis (Chronic) Sensorineural hearing loss (SNHL) (Chronic) Vitamin D deficiency (Chronic) Skin lesion of back (Acute) Obesity (Chronic) Hyperlipidemia, unspecified (Chronic) Statin intolerance Cochlear implant in place (Chronic) Right Hiatal hernia (Chronic) Small, per 03/18/2010 [place] Low back pain (Acute) Hypomagnesemia (Acute) Steatosis of liver (Chronic) 09/22/2022 US: mild hepatic steatosis. LFTs always NL; plan to do further w/u if LFTs become elevated. Rotator cuff tear arthropathy of left shoulder (Acute) s/p left reverse total shoulder replacement on 11/12/22 Medical History UTI (urinary tract infection) Fracture of right great toe Seborrheic keratosis (~11/2022) R upper back Positive self-administered antigen test for COVID-19 (~04/2022) Abdominal wall hernia S/p repair 11/24/2021 [facility] [place] appendicitis Traumatic tear of left rotator cuff Tubular adenoma of colon (09/12/17) Subfibular impingement of right lower extremity (12/15/15) Posterior tibial tendon dysfunction (PTTD) of right lower extremity (12/15/15) Esophageal ulcer without bleeding Per 12/17/2009 EGD [place] --> resolved with repeat EGD 03/18/2020 Surgical History H/O hernia repair (10/2023) Ventral hernia repair at [facility] History of appendectomy Status post hernia repair (11/24/21) [facility] [place]/P laparoscopic appendectomy (~10/18/20) S/P tubal ligation History of cochlear implant Right Family History Mother No problems noted. Father COPD (chronic obstructive pulmonary disease) Sister Essential hypertension Stroke Maternal Grandmother Essential hypertension Stroke Son Alcohol abuse Social History Smoking/Tobacco Use Status: Former Tobacco Use Quit Date: 05/23/89 Smoking risk assessment performed?: Yes Alcohol Intake: current Alcohol Intake frequency: a few times a week Drug use: Never Substance use type: does not use Adopted: No Caregiver/Support person: No Foster care: No Household members: spouse Housing: house Number of Children: 2 number of grandchildren: 1 Communication Needs: Corrective Lenses Education Level: college Do you need help understanding health information?: Rarely current occupation: Retired Pets and animals: Yes Pets and animals: cat(s) Sexually active: No Do you think of yourself as: straight/heterosexual Current gender identity: female What is your relationship status?: How often do you talk on the phone with friends or family?: twice per week How often do you get together with friends or relatives?: three or more times per week Do you belong to any clubs or organized social groups?: no Panel score (0-1 are the most socially isolated patients): 2 Duration: < 15 minutes/day Frequency: 1-2 times per week Seatbelt use: always Helmet use: Yes Drive intox or ride w/intox local [place] truck driver: No Water heater temp set <120 deg: Yes Working smoke detector in home: Yes Fire extinguisher in home: Yes Carbon monox detector in home: Yes Firearms in home: Yes Firearms unloaded and locked: Yes In current or past relationships, have you been: made to feel afraid Do you feel safe at home: Yes Do you feel safe in your relationship?: Yes
[2024-11-09] MEDS: MORPHine 10 MG/ML VIAL 2 MG IVP (21:11)
[2024-11-09] MEDS: Ondansetron 4 MG/2 ML VIAL IVP (21:11)
[2024-11-09 21:21] LABS: Abs Immature Grans 0.04 10^3/uL (0.0-0.06); Absolute Eosinophil Count 0.38 10^3/uL (0.0-0.7); Absolute Lymphocyte Count 3.49 10^3/uL (1.2-3.4); Absolute Monocyte Count 0.93 10^3/uL (0.1-0.8); Basophils % 0.6 %; Eosinophils % 3.1 %; HCT 45.2 % (36.0-46.0); HGB 15.6 g/dL (11.2-15.7); Immature Grans % 0.3 %; Lymphocytes % 28.2 %; MCH 31.7 pg (27.0-33.0); MCHC 34.5 % (32.0-36.0); MCV 92 fL (80-95); MPV 9.6 fL (8.0-11.0); Monocytes % 7.5 %; Neutrophils % 60.3 %; Platelet Count 230 10^3/uL (130-400); RBC 4.92 10^6/uL (3.93-5.22); RDW 13.5 % (11.7-14.6); RDW-SD 46.1 fL; WBC 12.37 10^3/uL (4.4-10.8)
[2024-11-09 21:22] LABS: Absolute Basophil Count 0.07 10^3/uL (0.0-0.2); Absolute Neutrophil Count 7.46 10^3/uL (1.2-6.7)
[2024-11-09 21:23] VITALS: BP 134/74; PULSE 84; RESP 18
[2024-11-09 21:26] LABS: Bilirubin Negative (Negative); Blood Moderate (Negative); Clarity Clear (Clear); Glucose Negative (Negative); Ketones Trace mg/dL (Negative); Leukocyte Esterase Trace (Negative); Nitrite Positive (Negative); Specific Gravity 1.025 (1.005-1.025); Urobilinogen 0.2 mg/dL (Up to 0.2)
[2024-11-09 21:35] LABS: Bacteria Packed HPF (Negative); C & S Indicated? Yes; Casts Negative LPF (Negative); Crystals Negative HPF (Negative); Epithelial Cells Few HPF (Negative); Mucus Negative (Negative); WBC 20-50 HPF (0-5)
[2024-11-09 21:35] LABS: ALT 24 U/L (14-59); AST 21 U/L (15-37); Albumin 4.1 g/dL (3.4-5.0); Alkaline Phosphatase 81 U/L (46-116); Anion Gap 12.5 mmol/L (3-11); BUN 16 mg/dL (7-18); Bilirubin, Total 0.3 mg/dL (0.2-1.0); CO2 23.5 mmol/L (21.0-32.0); CREATININE 0.7 mg/dL (0.55-1.02); Calcium 9.5 mg/dL (8.5-10.1); Chloride 103 mmol/L (98-107); Estimated GFR 86.83 (mL/min/1.73m2); Glucose 112 mg/dL (74-106); Lipase 39 U/L (<78); Magnesium 1.8 mg/dL (1.8-2.4); Potassium 3.8 mmol/L (3.5-5.1); Sodium 139 mmol/L (136-145); Total Protein 8.5 g/dL (6.4-8.2)
[2024-11-09] MEDS: Omnipaque 350 MG/ML 100 ML BTL 75 ML IJ (22:21)
[2024-11-09] MEDS: Normal Saline - Diluent 50 ML VIAL IJ (22:21)
--- NOTE | 2024-11-09 22:30 | DI.CT_ITS ---
Exam(s) CT ABDOMEN PELVIS W EXAM: CT ABDOMEN PELVIS W CLINICAL HISTORY: RLQ abd pain TECHNIQUE: Imaging Protocol: Axial computed tomography images with coronal and sagittal reformatted images were created and reviewed. CONTRAST MATERIAL: Intravenous: Omnipaque 350 contrast volume:75 mL Oral: No CT CT CHEST WO from 12/08/2023 FINDINGS: ABDOMEN: Lung Bases: The heart is at the upper limits of normal to mildly enlarged. Liver: Normal density. No measurable mass. There are 2 simple hepatic cysts. No follow-up is recommended. No suspicious hepatic lesions are present. Portal, Superior Mesenteric, and Splenic Veins: Unremarkable. Gallbladder and Biliary Tract: There is debris seen in the dependent portion of the gallbladder which may represent stones or sludge. There is no significant biliary ductal dilatation. Pancreas: Normal density, no abnormal calcifications or inflammatory process. Spleen: Normal. Adrenals: No masses seen. Kidneys: Normal size, contour and axis. No radiodense stones or obstructive uropathy. There is a simple cyst in the right kidney. No follow-up is recommended. Abdominal Aorta: Abdominal portion non-dilated. Atherosclerotic calcification is present. Bowel: No obstruction or bowel wall thickening. There are surgical clips seen in the cecum suggesting prior appendectomy. There is a diverticulum arising from the 2nd portion of the duodenum. There is a very small umbilical hernia containing an unremarkable short loop of small bowel. No evidence of incarceration or obstruction of the bowel is seen. There is a moderate amount of stool throughout the colon. Peritoneal Cavity: No ascites, collection or mesenteric inflammatory response. No free air. Lymph Nodes: Within normal limits. Bones: Within normal limits for the patient's age. There is grade 1 anterolisthesis of L4 on L5. Soft Tissues: Unremarkable. PELVIS: Bladder: Symmetric distention, no gross wall thickening. Reproductive Organs: Unremarkable as visualized. Lymph Nodes: Within normal limits. Bones: Within normal limits for the patient's age. IMPRESSION: 1. No acute abdominal or pelvic process. 2. No evidence of appendicitis. 3. Moderate amount of stool in the colon. 4. Cholelithiasis and/or sludge. No biliary ductal dilatation. 5. Small umbilical hernia containing an unremarkable loop of small bowel. No evidence of incarceration or obstruction. 6. The preliminary [facility] report was reviewed. RADIATION DOSE DELIVERED: 638.4mGy.cm Total DLP DATA REPOSITORY: All CT scans at this facility are submitted to the National Radiology Data Registry (NRDR) Dose Index Registry (DIR) with the [employer] (ACR). RADIATION OPTIMIZATION: All CT scans at this facility use at least one of these dose optimization techniques: automated exposure control; mA and/or kV adjustment per patient size (includes targeted exams where dose is matched to clinical indication); or iterative reconstruction.
--- NOTE | 2024-11-09 23:00 | DI.[facility]_ITS ---
PROCEDURE INFORMATION: Exam: CT Abdomen And Pelvis With Contrast Exam date and time: 11/09/2024 10:21 PM Age: 79 years old Clinical indication: Other: Rlq abd pain TECHNIQUE: Imaging protocol: Computed tomography of the abdomen and pelvis with contrast. Contrast material: OMNIPAQUE 350; Contrast volume: 75 ml; Contrast route: IV; COMPARISON: CT - SOCTABP^FILM LIBRARY - STORAGE ONLY CT ABDOMEN AND PELVIS 05/30/2023 3:52 PM FINDINGS: Lungs: Linear bibasilar opacities most consistent with subsegmental atelectasis. Liver: There is a diffuse decrease in hepatic parenchymal density, consistent with fatty infiltration. Scattered hepatic cysts are seen and other subcentimeter hypodensities which are too small to characterize. Gallbladder and biliary ducts: Multiple gallstones are present. No pericholecystic inflammatory changes to suggest cholecystitis. Pancreas: The pancreas is unremarkable. Spleen: No splenomegaly. No lesions. Adrenal glands: The adrenal glands are unremarkable. Kidneys and ureters: Stable renal cysts. Stomach and bowel: Moderate stool throughout the colon and rectum. Appendix: Appendix is not seen but there is no pericecal inflammatory change. Intraperitoneal space: Unremarkable. No free air. No significant fluid collection. Vasculature: Patent vessels without evidence of aneurysm, dissection, occlusion or critical stenosis. Lymph nodes: No mesentery adenopathy. No edema. Urinary bladder: No focal wall thickening of the urinary bladder. Reproductive: The uterus is unremarkable. Bones/joints: The lumbar spine demonstrates moderate degenerative changes at multiple levels. Moderate disc space narrowing more prominent at L4 through S1. L4/L5 disc space narrowing with posterior disc bulge. L5/S1 disc space narrowing with posterior disc bulge. Soft tissues: Soft tissues are unremarkable as visualized. IMPRESSION: No acute findings. Appendix is not seen but there is no pericecal inflammatory change. Dictated and Authenticated by: Judith Farley MD. Orderin Gabino Harris MD
[2024-11-09] MEDS: Sulfameth/Trimeth DS, 2 TABS/BTL 1 TAB PO (23:11)
[2024-11-09] MEDS: Sulfameth/Trimeth DS TAB 1 TAB PO (23:11)
== END 2024-11-09 23:11 | disposition home or self-care (01) ==
PROVIDERS: Emergency Provider Registered Nurse Emergency; PCP Nurse Practitioner Family
DX: N39.0 Urinary tract infection, site not specified (principal); R10.32 Left lower quadrant pain; I10 Essential (primary) hypertension; E78.5 Hyperlipidemia, unspecified; E03.9 Hypothyroidism, unspecified; Z87.891 Personal history of nicotine dependence
CPT/HCPCS: 80053; 83690; 87077; 96374; 96375; 99285; 74177; 81003; 81015; 83735; 85025; 87086; 87186; 99284; J2270; J2405; J3490

== ENCOUNTER 2024-12-21 01:35 | Outpatient (CLI) | payer MEDICARE, SELFPAY ==
--- NOTE | 2024-12-21 06:45 | DI.CT_ITS ---
Exam(s) CT CHEST WO EXAM: CT CHEST WO CLINICAL HISTORY: lung nodule SOLITARY, R91.1. TECHNIQUE: Multi planar reconstructions were performed. CONTRAST MATERIAL: None COMPARISON: CT CHEST FOR PULMONARY EMBOLUS from 10/23/[address] CHEST WO from 12/08/[address] ABDOMEN PELVIS W from 11/09/2024 FINDINGS: CHEST: LUNGS: The 2 previously described almost adjacent fissure related nodules in the right lung upper lobe appear unchanged from CT scan of November 2023 there are no new lung nodules, new infiltrates, nor pleural effusions. MEDIASTINUM: There is no obvious hilar nor mediastinal adenopathy. Visualized thyroid unremarkable.No obvious axillary adenopathy CARDIAC: Heart size upper normal. No pericardial effusion.The diameter of the ascending thoracic aorta is enlarged, measuring 4 cm. The diameter of the aortic arch and descending thoracic aorta are also slightly prominent, measuring 3 cm. VISUALIZED UPPER ABDOMEN:No adrenal masses. Probable subtle cholelithiasis OSSEOUS: No significant osseous lesions.No fractures. Left shoulder prosthesis noted.. IMPRESSION: 1. There is continued stable size and appearance of the 2 small fissure related nodules in the right lung. There are no new lung nodules nor pleural effusions nor intrathoracic adenopathy. 2. Recommend repeat CT scan in 1 year RADIATION DOSE DELIVERED: 219.03mGy.cm Total DLP DATA REPOSITORY: All CT scans at this facility are submitted to the National Radiology Data Registry (NRDR) Dose Index Registry (DIR) with the [employer] ([employer]). RADIATION OPTIMIZATION: All CT scans at this facility use at least one of these dose optimization techniques: automated exposure control; mA and/or kV adjustment per patient size (includes targeted exams where dose is matched to clinical indication); or iterative reconstruction.
== END 2024-12-21 01:55 ==
LOC: DI 01:35
PROVIDERS: PCP Nurse Practitioner Family; Visit Provider Nurse Practitioner Family
DX: R91.1 Solitary pulmonary nodule (principal)
CPT/HCPCS: 71250

== ENCOUNTER 2024-12-25 08:27 | Outpatient (REF) | payer MEDICARE, SELFPAY ==
[2024-12-25 16:04] LABS: RBC 0-2 HPF (0-2)
== END 2024-12-25 08:28 | disposition home or self-care (01) ==
LOC: LBN 08:27
PROVIDERS: PCP Nurse Practitioner Family; Visit Provider Nurse Practitioner Family
DX: R82.998 Other abnormal findings in urine (principal); M54.9 Dorsalgia, unspecified; R31.29 Other microscopic hematuria
CPT/HCPCS: 81015; 87086